=== PATIENT | female | born 1950 | race Caucasian/White ===

== ENCOUNTER 2018-06-05 17:04 | Outpatient (CLI) | payer MEDICARE ==
[2018-06-05 17:56] LABS: #Eosinphils 0.2 thou/uL (0.0-0.7); #Lymphocytes 1.5 thou/uL (1.20-3.40); #Monocytes 0.7 thou/uL (0.11-0.59); #Neutrophils 6.1 thou/uL (1.40-6.50); %Basophils 0.5 % (0.0-1.0); %Eosinophils 2.3 % (0.0-10.0); %Lymphocytes 17.5 % (21.0-51.0); %Monocytes 7.8 % (0.0-10.0); %Neutrophils 71.9 % (42.0-75.0); Hemoglobin 11.5 g/dL (12.0-16.0); Mean Corpuscular Hemoglobin 28.4 pg (27.0-31.0); Mean Corpuscular Volume 88.6 fL (78.0-98.0); Mean Platelet Volume 7.4 fL (7.4-10.4); Platelet Count 279 thou/uL (130-400); RBC Distribution Width 15.4 % (11.5-14.5); Red Blood Cell (RBC) Count 4.05 mill/uL (4.20-5.40); White Blood Cell (WBC) Count 8.4 thou/uL (4.8-10.8)
[2018-06-05 18:03] LABS: PTT 39.3 SEC (22.9-36.1); Prothrombin Time 13.4 SEC (12.0-14.7)
[2018-06-05 18:25] LABS: ALT (SGPT) 21 U/L (8-55); AST (SGOT) 20 U/L (5-34); Albumin 3.4 g/dL (3.4-4.8); Alkaline Phosphatase 396 U/L (40-150); Anion Gap 12 mmol/L (10-20); BUN (Urea Nitrogen) 27 mg/dL (9.8-20.1); Bilirubin, Total 0.6 mg/dL (0.2-1.2); Calc. Creatinine Clearance 0 mL/min (70-130); Carbon Dioxide 25 mmol/L (23-31); Cardiac Risk 3.5 (Less than 4.5); Chloride 101 mmol/L (98-107); Cholesterol 127 mg/dl (< 200 Desired); Estimated GFR-MDRD 27; Globulin 4.7 g/dL (2.4-3.5); Glucose 216 mg/dL (80-115); HDL Cholesterol 36 mg/dL (>60 Neg Risk); LDL Cholesterol, Calculated 61 mg/dL; Potassium 3.8 mmol/L (3.5-5.1); Protein, Total 8.1 g/dL (6.0-8.3); Sodium 134 mmol/L (136-145); Triglycerides 152 mg/dL (Less than 150)
== END 2018-06-05 17:05 | disposition home or self-care (01) ==
LOC: LABBT 17:04
PROVIDERS: ATTEND Emergency Medicine
DX: Z01.812 Encounter for preprocedural laboratory examination (principal); I25.5 Ischemic cardiomyopathy
CPT/HCPCS: 80053; 80061; 85025; 85610; 85730

== ENCOUNTER 2018-06-13 17:52 | Observation (INO) | payer MEDICARE ==
[2018-06-13] MEDS ORDERED: Acetaminophen 325 MG TAB PO PRN (19:12)
[2018-06-13] MEDS ORDERED: Ondansetron ODT 4 MG TAB PO PRN (19:12)
[2018-06-13] MEDS ORDERED: hydrALAZINE 20 MG/ML VIAL SLOW IVP PRN (19:32)
[2018-06-13] MEDS ORDERED: Sodium Chloride 0.9% 1,000 ML IV SCH ×3 (19:45→23:59)
[2018-06-13] MEDS ORDERED: hydrALAZINE 20 MG/ML VIAL SLOW IVP SCH (19:45)
[2018-06-13] MEDS ORDERED: Carvedilol 6.25 MG TAB PO SCH (19:45)
--- NOTE | 2018-06-13 20:26 | HP ---
HISTORY OF PRESENT ILLNESS: Ms. Webb is a pleasant 68-year-old white female, who comes to the hospital for prehydration for a planned heart catheterization tomorrow. She has a CABG x1 in 2013. She has severe PVD. Her creatinine was 1.8, so we decided to admit her the night before her procedure for IV fluids. She has had ischemic cardiomyopathy with an EF of 36% on the MPI with a large area of inferior scar with domenic-infarct ischemia, so apparently she only had one bypass to the LAD and LINARES. She denies any chest pain, tightness, or pressure at this time. PAST MEDICAL HISTORY: 1. Hypertension. 2. Type 2 diabetes. 3. Hyperlipidemia. 4. Coronary artery disease. 5. Ischemic cardiomyopathy. 6. Migraine headaches. 7. Facial palsy. PAST SURGICAL HISTORY: 1. x2. 2. Orthopedic surgeries in the past. PSYCHIATRIC HISTORY: Depression. SOCIAL HISTORY: Social alcohol use. No drug use. Currently, no tobacco, but former tobacco use. ALLERGIES: CODEINE. OUTPATIENT MEDICATIONS: Include: 1. Systane Gel eye drops. 2. Paroxetine 20 mg q.h.s. 3. Metformin 500 mg b.i.d. 4. Lipitor 40 mg q.h.s. 5. Carvedilol 6.25 b.i.d. 6. Zantac 75 b.i.d. 7. Advil p.r.n. 8. Iron supplements. 9. Tylenol. 10. Losartan 100 mg a day. REVIEW OF SYSTEMS: 12-point review of systems was done and was found to be negative other than stated in the history of present illness. PHYSICAL EXAMINATION: VITAL SIGNS: Temperature 98.5, pulse 73, respiratory rate 16, saturations 95% on room air, blood pressure 196/116. GENERAL: Awake, alert, and oriented x3. No distress. HEENT: Normocephalic and atraumatic. There is a right facial palsy. NECK: Supple. LUNGS: Clear. CARDIOVASCULAR: S1 and S2. No S3 or S4. No murmurs. ABDOMEN: Soft. Positive bowel sounds. EXTREMITIES: No edema. SKIN: Warm and dry. LABORATORY DATA: Laboratory work was reviewed. Hemoglobin of 11.5, this was just a week ago; hematocrit of 35; platelet count 279. Chemistry showed a BUN of 27, creatinine of 1.84, glucose was 260. Hemoglobin A1c is 10.2. Sodium was 134. ASSESSMENT AND PLAN: 1. Ischemic cardiomyopathy. 2. Status post coronary artery bypass graft x1. 3. Severe peripheral vascular disease. PLAN: 1. We will hydrate overnight. We will put on 50 mL an hour, starting at midnight. 2. We will plan on hopefully trying to get this done tomorrow morning. She has significant PVD and she has told me that they have tried in the past without success. We will try to access with ultrasound guidance and see if we are able to do this. 3. Bare-metal stents if needed, she needs eye surgery for her eyelids. 4. Further recommendations per results of angiogram tomorrow. She is aware that if it is her bypass graft, if it is a vein, if it is a drug-eluting stent. Job ID: [id number]
[2018-06-13] MEDS ORDERED: Atorvastatin Calcium 40 MG TAB PO SCH (21:00)
[2018-06-13] MEDS ORDERED: Famotidine 20 MG TAB PO SCH (21:00)
[2018-06-13] MEDS ORDERED: Communication Order-Pharmacy FS SCH (21:30)
[2018-06-13 23:08] VITALS: BMI 31.4
[2018-06-14 07:56] LABS: Anion Gap 13 mmol/L (10-20); BUN (Urea Nitrogen) 30 mg/dL (9.8-20.1); Calc. Creatinine Clearance 42 mL/min (70-130); Calcium 8.7 mg/dL (7.8-10.44); Carbon Dioxide 22 mmol/L (23-31); Chloride 104 mmol/L (98-107); Estimated GFR-MDRD 27; Glucose 278 mg/dL (80-115); Potassium 3.6 mmol/L (3.5-5.1); Sodium 135 mmol/L (136-145)
[2018-06-14] MEDS ORDERED: Carvedilol 6.25 MG TAB PO SCH (08:00)
[2018-06-14] MEDS ORDERED: PARoxetine 20 MG TAB PO SCH (09:00)
[2018-06-14] MEDS ORDERED: Losartan 25 MG TAB PO SCH (09:00)
[2018-06-14] MEDS ORDERED: Midazolam HCl 2 mg/2 ml Vial ONE (09:50)
[2018-06-14] MEDS ORDERED: Fentanyl 100 MCG/2 ML VIAL ONE (09:50)
[2018-06-14] MEDS ORDERED: hydrALAZINE 20 MG/ML VIAL ONE ×2 (09:58→10:26)
[2018-06-14] MEDS ORDERED: traMADol HCl 50 MG TAB PO PRN (10:16)
[2018-06-14] MEDS ORDERED: Acetaminophen/Codeine 30-300mg Tablet PO PRN (10:16)
[2018-06-14] MEDS ORDERED: Aspirin Chewable 81 MG TAB ONE (10:26)
[2018-06-14] MEDS ORDERED: Sodium Chloride 0.9% 1,000 ML IV SCH (10:30)
[2018-06-14] MEDS ORDERED: Sodium Chloride 0.9% 200 ML IV SCH (10:30)
--- NOTE | 2018-06-14 10:58 | DIS ---
DATE OF ADMISSION: 06/13/2018 DATE OF DISCHARGE: 06/14/2018 DISCHARGING PHYSICIAN: Len Hernández MD. HOSPITAL COURSE: Ms. Webb was admitted overnight for hydration for preparation of a heart catheterization this morning. She underwent that procedure. Only 60 mL of contrast were used. We were able to get images of her [place] coronary arteries as well as the three bypass grafts that were done. She has an occluded LAD, but a patent LINARES to the LAD. She has severely diseased left circumflex, just diffusely diseased, nowhere to do intervention or bypass, and she has a severely diseased large OM that has a patent vein graft to that OM. RCA is severely diseased ostially and then mid vessel, it is 100% occluded. There is a vein graft to the RCA that is occluded. There is only a very small stub seen on angiography. RCA distally fills from LAD collaterals. Ms. Webb will stay after the catheterization procedure for 5 more hours for just very mild hydration and she should be able to go home later today. DISCHARGE MEDICATIONS: Unchanged except for the addition of a baby aspirin 81 mg daily. FOLLOWUP: She will follow up with myself in 1 month. TIME SPENT: Over 30 minutes was spent at bedside for discharge. Job ID: [id number]
[2018-06-14 15:27] VITALS: BP 144/72; TEMP 99
[2018-06-14] MEDS ORDERED: Prevnar 13-Val Conj/PF 0.5 ML SYRINGE IM ONE (21:00)
[2018-06-15] MEDS ORDERED: Aspirin Chewable 81 MG TAB PO SCH (09:00)
== END 2018-06-14 15:27 | disposition home or self-care (01) ==
LOC: T4-A 17:52
PROVIDERS: ADMIT Internal Medicine Cardiovascular Disease; ATTEND Internal Medicine Cardiovascular Disease
DX: I25.5 Ischemic cardiomyopathy (principal); I73.9 Peripheral vascular disease, unspecified; I25.10 Atherosclerotic heart disease of native coronary artery without angina pectoris; E78.5 Hyperlipidemia, unspecified; I10 Essential (primary) hypertension; E11.9 Type 2 diabetes mellitus without complications; G43.909 Migraine, unspecified, not intractable, without status migrainosus; Z87.891 Personal history of nicotine dependence; Z79.82 Long term (current) use of aspirin; Z79.84 Long term (current) use of oral hypoglycemic drugs; Z79.899 Other long term (current) drug therapy; Z95.1 Presence of aortocoronary bypass graft
CPT/HCPCS: 80048; 96374; C1769; G0378; G0379; 36415; J0360; J1644; J2250; J3010

== ENCOUNTER 2018-10-25 16:46 | Inpatient (IN) | payer MEDICARE ==
--- NOTE | 2018-10-25 17:12 | RAD ---
EXAM: Chest 2 views: HISTORY: Edema and dyspnea COMPARISON: None. FINDINGS: There is a normal-sized cardiomediastinal silhouette. The patient is status post sternotomy. There i s no evidence of consolidation, mass, or pleural effusion. Degenerative changes are seen in the spine. IMPRESSION: No evidence of acute cardiopulmonary disease
[2018-10-25 17:21] LABS: #Basophils 0.1 thou/uL (0.0-0.2); #Eosinphils 0.2 thou/uL (0.0-0.7); #Lymphocytes 1.5 thou/uL (1.20-3.40); #Monocytes 0.8 thou/uL (0.11-0.59); #Neutrophils 5.4 thou/uL (1.40-6.50); %Basophils 0.7 % (0.0-1.0); %Eosinophils 2.4 % (0.0-10.0); %Lymphocytes 18.5 % (21.0-51.0); %Monocytes 9.9 % (0.0-10.0); %Neutrophils 68.5 % (42.0-75.0); Hemoglobin 11.6 g/dL (12.0-16.0); Mean Corpuscular HGB CONC 31.8 g/dL (32.0-36.0); Mean Corpuscular Hemoglobin 29.8 pg (27.0-31.0); Mean Corpuscular Volume 93.8 fL (78.0-98.0); Mean Platelet Volume 7.3 fL (7.4-10.4); Platelet Count 276 thou/uL (130-400); RBC Distribution Width 14.6 % (11.5-14.5); Red Blood Cell (RBC) Count 3.88 mill/uL (4.20-5.40); White Blood Cell (WBC) Count 7.9 thou/uL (4.8-10.8)
[2018-10-25 17:43] LABS: ALT (SGPT) 11 U/L (8-55); AST (SGOT) 21 U/L (5-34); Albumin 3.5 g/dL (3.4-4.8); Alkaline Phosphatase 365 U/L (40-150); Anion Gap 11 mmol/L (10-20); BUN (Urea Nitrogen) 29 mg/dL (9.8-20.1); Bilirubin, Total 0.8 mg/dL (0.2-1.2); Calc. Creatinine Clearance 0 mL/min (70-130); Calcium 9.2 mg/dL (7.8-10.44); Carbon Dioxide 27 mmol/L (23-31); Chloride 105 mmol/L (98-107); Estimated GFR-MDRD 27; Globulin 4.2 g/dL (2.4-3.5); Glucose 115 mg/dL (80-115); Potassium 4.1 mmol/L (3.5-5.1); Protein, Total 7.7 g/dL (6.0-8.3); Sodium 139 mmol/L (136-145)
[2018-10-25] MEDS ORDERED: Furosemide 40 MG/4 ML VIAL ONE (19:16)
[2018-10-25] MEDS ORDERED: metroNIDAZOLE 500 MG/100 ML BAG ONE (19:46)
[2018-10-25] MEDS ORDERED: Amoxicillin/Potassium Clav 875 MG TAB ONE (20:02)
[2018-10-25 20:19] LABS: Troponin I 0.034 ng/mL (< 0.028)
[2018-10-25 20:48] LABS: Bilirubin Negative (Negative); Blood, Urine Trace (Negative); Clarity CLOUDY (Clear); Glucose, Urine (Dipstick) Negative (Negative); Leukocyte Trace (Negative); Nitrite Negative (Negative); Protein, Urine (Dipstick) 100 mg/dL (Neg-Trace); Specific Gravity, Urine 1.009 (1.002-1.036); Urobilinogen 0.2 mg/dL (0.2-1.0)
[2018-10-25 20:50] LABS: Bacteria/HPF 4+ HPF (None Seen); Hyaline Casts/LPF 0-3 HYALINE CAST LPF (0-3 Hyaline); Squamous Epithelial 0-3 HPF (0-3)
[2018-10-25] MEDS ORDERED: Ondansetron ODT 4 MG TAB SL PRN (21:32)
[2018-10-25] MEDS ORDERED: Acetaminophen 325 MG TAB PO PRN (21:32)
[2018-10-25] MEDS ORDERED: Ondansetron PF 4 MG/2 ML Vial IVP PRN (21:32)
[2018-10-25 21:46] VITALS: BMI 32.8
[2018-10-25 22:27] LABS: Troponin I 0.028 ng/mL (< 0.028)
[2018-10-25] MEDS ORDERED: hydrALAZINE 20 MG/ML VIAL SLOW IVP PRN (22:30)
[2018-10-25] MEDS ORDERED: Labetalol HCl 100 MG/20 ML VIAL SLOW IVP PRN (22:32)
[2018-10-25] MEDS: cloNIDine 0.1 MG TAB PO PRN (22:37)
[2018-10-25] MEDS ORDERED: Carvedilol 6.25 MG TAB PO SCH (22:45)
[2018-10-26] MEDS ORDERED: Ondansetron ODT 4 MG TAB PO PRN (04:47)
[2018-10-26] MEDS ORDERED: Acetaminophen 325 MG TAB PO PRN (04:47)
[2018-10-26] MEDS ORDERED: Calcium Carbonate 500 MG ChewTAB PO PRN (04:47)
[2018-10-26] MEDS ORDERED: Senokot S 8.6-50 MG TAB PO PRN (04:47)
[2018-10-26] MEDS ORDERED: Ondansetron PF 4 MG/2 ML Vial IVP PRN (04:47)
[2018-10-26] MEDS: cefTRIAXone\\ROCEPHIN 1 GM in Sodium Chloride 0.9% 100 ML IVPB SCH (05:15)
--- NOTE | 2018-10-26 05:21 | HP ---
The patient was seen and examined on October 25, 2018. CHIEF COMPLAINT: Shortness of breath. HISTORY OF PRESENT ILLNESS: The patient is a 68-year-old female with coronary artery disease, status post CABG; hypertension; diabetes mellitus type 2; and hyperlipidemia; presented to the emergency room with shortness of breath. Over the last 1 to 2 weeks, the patient developed gradual worsening in shortness of breath along with significant bilateral lower extremity swelling. She also had cough, which was essentially nonproductive. She also had shortness of breath on lying down flat. She denies any fever or chills. She cannot recall recent echo. She had a stress test more than 6 months ago that showed ejection fraction of 36% with large area of inferior scar with domenic-infarct ischemia. She underwent cardiac catheterization in May of this year and medical therapy was recommended. No nausea, vomiting, diaphoresis, syncope, or palpitations reported. The patient also complains of increased abdominal distention without any abdominal pain. PAST MEDICAL HISTORY: 1. Hypertension. 2. Diabetes mellitus type 2. 3. Coronary artery disease, status post coronary artery bypass grafting. 4. Hyperlipidemia. 5. Ischemic cardiomyopathy with ejection fraction 36% on stress test. 6. History of migraine headaches. 7. Multiple dental issues. 8. Depression. PAST SURGICAL HISTORY: 1. x2. 2. Left carotid endarterectomy. 3. Hysterectomy. 4. Left elbow surgery. 5. Partial amputation of the right foot. ALLERGIES: NO KNOWN DRUG ALLERGIES. CURRENT HOME MEDICATIONS: The patient is unable to recall any of her home medications. She is a poor historian. Her sister helps her with all the medications. SOCIAL HISTORY: The patient currently lives at home with her family. No smoking, alcohol, or drug use reported. She is a former smoker. FAMILY HISTORY: Negative for congestive heart failure. REVIEW OF SYSTEMS: All other review of systems was reviewed and was found negative. PHYSICAL EXAMINATION: VITAL SIGNS: Temperature 98.3, respirations 18, pulse rate of 64, blood pressure of 186/78 with O2 saturation 95% on room air. GENERAL: A 68-year-old female, in mild respiratory distress, able to complete short phrases. HEENT: Head, atraumatic and normocephalic. Sclerae are anicteric. Moist mucous membranes. No oral lesion. NECK: Supple. JVD not appreciated due to body habitus. No carotid bruit. LUNGS: Showed bibasilar rales with rhonchi. No wheezing. No significant accessory muscle use. HEART: S1 and S2 present. Regular rate and rhythm. Healed midline scar from previous CABG. 2/6 systolic murmur over the mitral area. ABDOMEN: Soft, obese. Bowel sounds are present. EXTREMITIES: 2 to 3+ edema in bilateral lower extremities. SKIN: Warm and dry. LYMPH NODES: No palpable lymph nodes in the neck. PERIPHERAL VASCULAR: Radial pulses palpable bilaterally. MUSCULOSKELETAL: No joint swelling or tenderness. LABORATORY FINDINGS: EKG by my review showed sinus rhythm with premature ventricular complexes with first-degree AV block and nonspecific ST-T wave changes. Troponin 0.034. BNP 1708. Creatinine 1.87. Baseline creatinine is around this range. WBC 7.9 with hemoglobin 11.9. Chest x-ray by my review showed pulmonary vascular congestion. IMPRESSION: 1. Acute on chronic systolic heart failure exacerbation. 2. Chronic kidney disease stage 4. 3. Elevated troponin/type 2 myocardial infarction secondary to congestive heart failure. 4. Chronic normocytic normochromic anemia. 5. Obesity with a BMI of 32.9. 6. Urinary tract infection. 7. Diabetes mellitus type 2. 8. Depression, mild, stable. 9. Coronary artery disease, status post coronary artery bypass graft with repeat catheterization earlier this year. 10. Hyperlipidemia. 11. Hypertension with hypertensive urgency. PLAN: The patient will be monitored on the telemetry unit as observation. We will start her on Lasix drip due to CKD stage 4. Ejection fraction earlier this year was 36% per Dr. Hernández's note. We will resume low-dose aspirin. Insulin sliding scale. We will confirm home medications. Recheck labs on a daily basis. Fluid restriction. We will also resume carvedilol. No TALAT inhibitor, ARB, or Aldactone due to renal dysfunction. We will start her on empiric antibiotics for UTI. Plan of care was discussed with the patient in detail, she stated understanding. Job ID: [id number]
[2018-10-26] MEDS: Furosemide 100 MG in Sodium Chloride 0.9% 100 ML IVPB SCH (05:54)
[2018-10-26] MEDS: Aspirin 81 mg Enteric Coated Tablet PO SCH (08:47)
[2018-10-26] MEDS: Carvedilol 6.25 MG TAB PO SCH ×2 (08:47→17:33)
[2018-10-26] MEDS: Heparin 5,000 UNITS/ML VIAL SC SCH ×2 (08:48→21:30)
[2018-10-26] MEDS: Chlorhexidine Gluconate 15 ML UDCUP SSP SCH ×2 (11:19→21:30)
--- NOTE | 2018-10-26 15:07 | PDOC.PN ---
- Subjective Encounter Start Date: 10/26/18 Encounter Start Time: 15:05 Patient lying in bed, she reports feeling better today. She reports shortness of breath improved, she is continuing on lasix. She denies chest pain or palpitations. - Objective Resuscitation Status - Order Detail: 10/26/18 04:47 Resuscitation Status Routine Resuscitation Status: FULL: Full Resuscitation MAR Reviewed: Yes Vital Signs & Weight: Vital Signs (12 hours) Temp Pulse Pulse Pulse Resp BP BP 10/26/18 12:00 98.6 F 60 18 182/79 H 10/26/18 10:10 64 66 164/72 H 10/26/18 10:00 98.4 F 60 18 183/83 H 10/26/18 08:47 183/83 H 10/26/18 08:00 98.4 F 60 18 183/83 H 10/26/18 03:12 97.8 F 64 12 BP BP Pulse Ox Pulse Ox 10/26/18 12:00 94 L 10/26/18 10:10 162/72 H 90 L 10/26/18 10:00 96 10/26/18 08:47 10/26/18 08:00 183/83 H 96 10/26/18 03:12 161/68 H 94 L Weight Admit Weight 216 lb Weight 216 lb 6.4 oz I&O: 10/25/18 10/26/18 10/27/18 06:59 06:59 06:59 Intake Total 460 465 Output Total 700 Balance -240 465 Result Diagrams: 10/25/18 17:14 10/25/18 17:14 Additional Labs: Accuchecks 10/26/18 10/26/18 10:44 05:35 POC Glucose 208 H 143 H Radiology Reviewed by me: Yes Phys Exam - Physical Examination Constitutional: NAD HEENT: moist MMs Neck: supple Coarse breath sounds Cardiovascular: RRR 2/6 systolic murmur Gastrointestinal: soft, positive bowel sounds Musculoskeletal: pulses present 1+ edema Neurological: normal sensation, moves all 4 limbs Lymphatic: no nodes Psychiatric: normal affect, A&O x 3 Skin: cap refill <2 seconds Dx/Plan (1) Acute on chronic systolic (congestive) heart failure Code(s): I50.23 - ACUTE ON CHRONIC SYSTOLIC (CONGESTIVE) HEART FAILURE Status : Acute (2) CKD (chronic kidney disease) stage 4, GFR 15-29 ml/min Code(s): N18.4 - CHRONIC KIDNEY DISEASE, STAGE 4 (SEVERE) Status: Acute (3) UTI (urinary tract infection) Status: Acute (4) Myocardial infarction type 2 Code(s): I21.A1 - MYOCARDIAL INFARCTION TYPE 2 Status: Acute (5) CAD (coronary artery disease) Code(s): I25.10 - ATHSCL HEART DISEASE OF [place] CORONARY ARTERY W/O ANG PCTRS Status: Acute (6) HTN (hypertension) Code(s): I10 - ESSENTIAL (PRIMARY) HYPERTENSION Status: Acute (7) HLD (hyperlipidemia) Code(s): E78.5 - HYPERLIPIDEMIA, UNSPECIFIED Status: Acute - Plan cont current plan of care, plan discussed w/ family, continue antibiotics, DVT proph w/heparin * Continue on lasix for continued diuresis * Continue other home medications * IV ceftriaxone for UTI, await urine culture * Monitor BP and other vitals, continue antihypertensives * Recheck CBC and CMP in am * Disposition pending patient progress, but likely home in the next 24-48 hours
[2018-10-26] MEDS: cloNIDine 0.1 MG TAB PO PRN (21:29)
[2018-10-27 04:50] LABS: Anion Gap 12 mmol/L (10-20); BUN (Urea Nitrogen) 26 mg/dL (9.8-20.1); Calc. Creatinine Clearance 44 mL/min (70-130); Calcium 9.1 mg/dL (7.8-10.44); Carbon Dioxide 27 mmol/L (23-31); Chloride 102 mmol/L (98-107); Estimated GFR-MDRD 27; Glucose 158 mg/dL (80-115); Magnesium 1.8 mg/dL (1.6-2.6); Potassium 3.5 mmol/L (3.5-5.1); Sodium 137 mmol/L (136-145)
[2018-10-27] MEDS: Furosemide 100 MG in Sodium Chloride 0.9% 100 ML IVPB SCH (05:18)
[2018-10-27] MEDS: cefTRIAXone\\ROCEPHIN 1 GM in Sodium Chloride 0.9% 100 ML IVPB SCH (05:18)
[2018-10-27] MEDS: Carvedilol 6.25 MG TAB PO SCH ×2 (08:13→21:20)
[2018-10-27] MEDS: Chlorhexidine Gluconate 15 ML UDCUP SSP SCH ×2 (08:14→21:20)
[2018-10-27] MEDS: cloNIDine 0.1 MG TAB PO PRN ×2 (08:14→16:12)
[2018-10-27] MEDS: Aspirin 81 mg Enteric Coated Tablet PO SCH (08:14)
[2018-10-27] MEDS: Heparin 5,000 UNITS/ML VIAL SC SCH ×2 (08:14→21:21)
--- NOTE | 2018-10-27 10:48 | PDOC.PN ---
- Subjective Encounter Start Date: 10/27/18 Encounter Start Time: 08:30 -: old records requested/rev Patient seen and examined. pt has low back pain, No overnight events - Objective Resuscitation Status - Order Detail: 10/26/18 04:47 Resuscitation Status Routine Resuscitation Status: FULL: Full Resuscitation MAR Reviewed: Yes Vital Signs & Weight: Vital Signs (12 hours) Temp Pulse Resp BP BP BP BP 10/27/18 08:14 196/82 H 10/27/18 08:13 196/82 H 10/27/18 08:00 98.5 F 75 18 196/82 H 10/27/18 03:47 98.7 F 71 18 176/77 H 10/27/18 00:20 67 148/67 H Pulse Ox 10/27/18 08:14 10/27/18 08:13 10/27/18 08:00 91 L 10/27/18 03:47 92 L 10/27/18 00:20 Weight Admit Weight 216 lb Weight 209 lb 11.2 oz I&O: 10/26/18 10/27/18 10/28/18 06:59 06:59 06:59 Intake Total 460 1101.6 240 Output Total 700 2425 Balance -240 -1323.4 240 Result Diagrams: 10/25/18 17:14 10/27/18 03:59 Additional Labs: Accuchecks 10/27/18 10/26/18 10/26/18 06:10 21:08 16:56 POC Glucose 151 H 147 H 154 H 10/26/18 10:44 POC Glucose 208 H Radiology Reviewed by me: Yes EKG Reviewed by me: Yes (nsr) Phys Exam - Physical Examination Constitutional: NAD HEENT: PERRLA, moist MMs, sclera anicteric fascial palsy+ Neck: no JVD, supple Respiratory: no wheezing, no rhonchi fe basal rales Cardiovascular: RRR, no significant murmur, no rub Gastrointestinal: soft, non-tender, no distention, positive bowel sounds Musculoskeletal: pulses present, edema present Neurological: non-focal, normal sensation Lymphatic: no nodes Psychiatric: normal affect, A&O x 3 Skin: no rash, normal turgor Dx/Plan (1) Acute on chronic systolic (congestive) heart failure Code(s): I50.23 - ACUTE ON CHRONIC SYSTOLIC (CONGESTIVE) HEART FAILURE Status : Acute (2) UTI (urinary tract infection) Status: Acute (3) CAD (coronary artery disease) Code(s): I25.10 - ATHSCL HEART DISEASE OF [place] CORONARY ARTERY W/O ANG PCTRS Status: Chronic (4) CKD (chronic kidney disease) stage 4, GFR 15-29 ml/min Code(s): N18.4 - CHRONIC KIDNEY DISEASE, STAGE 4 (SEVERE) Status: Chronic (5) HLD (hyperlipidemia) Code(s): E78.5 - HYPERLIPIDEMIA, UNSPECIFIED Status: Chronic (6) HTN (hypertension) Code(s): I10 - ESSENTIAL (PRIMARY) HYPERTENSION Status: Chronic (7) Myocardial infarction type 2 Code(s): I21.A1 - MYOCARDIAL INFARCTION TYPE 2 Status: Chronic (8) Anxiety and depression Code(s): F41.9 - ANXIETY DISORDER, UNSPECIFIED; F32.9 - MAJOR DEPRESSIVE DISORDER, SINGLE EPISODE, UNSPECIFIED Status: Chronic - Plan cont current plan of care, plan discussed w/ family, continue antibiotics * continue lasix * add norco for pain * medication reviewed as below * symptomatic treatment * discussed with family * repeat labs tomorrow. * continue rocephin Review of Systems - Review of Systems ENT: negative: Ear Pain, Ear Discharge, Nose Pain, Nose Discharge, Nose Congestion, Mouth Pain, Mouth Swelling, Throat Pain, Throat Swelling, Other Respiratory: negative: Cough, Dry, Shortness of Breath, Hemoptysis, SOB with Excertion, Pleuritic Pain, Sputum, Wheezing Cardiovascular: negative: chest pain, palpitations, orthopnea, paroxysmal nocturnal dyspnea, edema, light headedness, other Gastrointestinal: negative: Nausea, Vomiting, Abdominal Pain, Diarrhea, Constipation, Melena, Hematochezia, Other Genitourinary: negative: Dysuria, Frequency, Incontinence, Hematuria, Retention , Other Musculoskeletal: Back Pain. negative: Neck Pain, Shoulder Pain, Arm Pain, Hand Pain, Leg Pain, Foot Pain, Other - Medications/Allergies Allergies/Adverse Reactions: Allergies Allergy/AdvReac Type Severity Reaction Status Date / Time No Known Allergies Allergy Verified 10/25/18 21:56 Medications: Current Medications Acetaminophen (Tylenol) 650 mg PO Q4H PRN PRN Reason: Headache/Fever/Mild Pain (1-3) Hydrocodone Bitart/Acetaminophen ([place] 5/325) 1 tab PO Q4H PRN PRN Reason: Pain Aspirin (Ecotrin) 81 mg PO DAILY [facility] Last Admin: 10/27/18 08:14 Dose: 81 mg Atorvastatin Calcium (Lipitor) 40 mg PO DAILY [facility] Calcium Carbonate (Tums) 1,000 mg PO Q4H PRN PRN Reason: Heartburn or Indigestion Carvedilol (Coreg) 12.5 mg PO BID [facility] Chlorhexidine Gluconate (Chlorhexidine Gluconate) 15 ml SSP BID [facility] Last Admin: 10/27/18 08:14 Dose: 15 ml Clonidine (Catapres) 0.1 mg PO Q4H PRN PRN Reason: SBP Greater Than 180 Last Admin: 10/27/18 08:14 Dose: 0.1 mg Gabapentin (Neurontin) 300 mg PO BID [facility] Glipizide (Glucotrol Xl) 5 mg PO DAILY [facility] Heparin Sodium (Porcine) (Heparin) 5,000 units SC BID [facility] Last Admin: 10/27/18 08:14 Dose: 5,000 units Hydralazine HCl (Apresoline) 10 mg SLOW IVP Q4H PRN PRN Reason: SBP Greater Than 180 Last Admin: 10/26/18 01:24 Dose: 10 mg Ceftriaxone Sodium 1 gm/ (Sodium Chloride) 100 mls @ 200 mls/hr IVPB Q24HR [facility] Last Admin: 10/27/18 05:18 Dose: 100 mls Furosemide 100 mg/ Sodium (Chloride) 110 mls @ 4.4 mls/hr IVPB INF [facility] Last Admin: 10/27/18 05:18 Dose: 110 mls Labetalol HCl (Normodyne) 10 mg SLOW IVP Q4H PRN PRN Reason: SBP Greater Than 180 Ondansetron HCl (Zofran Odt) 4 mg PO Q6H PRN PRN Reason: Nausea/Vomiting Ondansetron HCl (Zofran) 4 mg IVP Q6H PRN PRN Reason: Nausea/Vomiting Paroxetine HCl (Paxil) 30 mg PO DAILY [facility] Senna/Docusate Sodium (Senokot S) 2 tab PO BID PRN PRN Reason: Constipation Sodium Chloride (Flush - Normal Saline) 10 ml IVF Q12HR [facility] Last Admin: 10/27/18 08:15 Dose: 10 ml Sodium Chloride (Flush - Normal Saline) 10 ml IVF PRN PRN PRN Reason: Saline Flush
[2018-10-27] MEDS: HYDROcodone/Acetaminophen 5/325 mg Tablet PO PRN ×2 (12:06→21:24)
[2018-10-27] MEDS: Gabapentin 300 MG CAP PO SCH (21:20)
[2018-10-28] MEDS: cefTRIAXone\\ROCEPHIN 1 GM in Sodium Chloride 0.9% 100 ML IVPB SCH (05:47)
[2018-10-28] MEDS: Furosemide 100 MG in Sodium Chloride 0.9% 100 ML IVPB SCH (05:47)
[2018-10-28 06:41] LABS: Anion Gap 12 mmol/L (10-20); BUN (Urea Nitrogen) 25 mg/dL (9.8-20.1); Calc. Creatinine Clearance 49 mL/min (70-130); Calcium 8.7 mg/dL (7.8-10.44); Carbon Dioxide 28 mmol/L (23-31); Chloride 100 mmol/L (98-107); Estimated GFR-MDRD 31; Glucose 152 mg/dL (80-115); Potassium 3.4 mmol/L (3.5-5.1); Sodium 137 mmol/L (136-145)
[2018-10-28] MEDS ORDERED: Potassium Chloride 20 MEQ TAB PO SCH (07:30)
[2018-10-28] MEDS: PARoxetine 20 MG TAB PO SCH (07:42)
[2018-10-28] MEDS: Carvedilol 6.25 MG TAB PO SCH ×2 (07:42→21:40)
[2018-10-28] MEDS: Gabapentin 300 MG CAP PO SCH ×2 (07:43→21:40)
[2018-10-28] MEDS: Aspirin 81 mg Enteric Coated Tablet PO SCH (07:43)
[2018-10-28] MEDS: Heparin 5,000 UNITS/ML VIAL SC SCH ×2 (07:43→21:41)
[2018-10-28] MEDS: cloNIDine 0.1 MG TAB PO PRN ×2 (07:43→12:56)
[2018-10-28] MEDS: Atorvastatin Calcium 40 MG TAB PO SCH (07:43)
[2018-10-28] MEDS: Chlorhexidine Gluconate 15 ML UDCUP SSP SCH ×2 (07:47→21:40)
[2018-10-28] MEDS: HYDROcodone/Acetaminophen 5/325 mg Tablet PO PRN ×2 (10:37→21:41)
--- NOTE | 2018-10-28 10:59 | PDOC.PN ---
- Subjective Encounter Start Date: 10/28/18 Encounter Start Time: 08:45 Patient seen and examined. No new complaints. No overnight events - Objective Resuscitation Status - Order Detail: 10/26/18 04:47 Resuscitation Status Routine Resuscitation Status: FULL: Full Resuscitation MAR Reviewed: Yes Vital Signs & Weight: Vital Signs (12 hours) Temp Pulse Pulse Pulse Resp BP BP 10/28/18 09:50 62 58 L 110/51 L 10/28/18 08:00 98.4 F 60 18 10/28/18 07:43 222/95 H 10/28/18 07:42 222/95 H 10/28/18 04:00 96.7 F L 61 14 10/27/18 23:56 97.8 F 61 14 BP BP Pulse Ox 10/28/18 09:50 168/75 H 10/28/18 08:00 222/95 H 95 10/28/18 07:43 10/28/18 07:42 10/28/18 04:00 190/77 H 94 L 10/27/18 23:56 169/72 H 89 L Weight Admit Weight 216 lb Weight 208 lb 8 oz I&O: 10/27/18 10/28/18 10/29/18 06:59 06:59 06:59 Intake Total 1101.6 1033 240 Output Total 2425 2950 Balance -1323.4 -1917 240 Result Diagrams: 10/25/18 17:14 10/28/18 05:43 Additional Labs: Accuchecks 10/28/18 10/28/18 10/27/18 10:41 06:15 22:29 POC Glucose 253 H 138 H 184 H 10/27/18 10/27/18 17:13 11:11 POC Glucose 199 H 247 H EKG Reviewed by me: Yes Phys Exam - Physical Examination Constitutional: NAD HEENT: PERRLA, moist MMs, sclera anicteric Neck: no JVD, supple Respiratory: no wheezing, no rales, no rhonchi Cardiovascular: RRR, no significant murmur, no rub Gastrointestinal: soft, non-tender, no distention, positive bowel sounds Musculoskeletal: no edema, pulses present Neurological: non-focal, normal sensation Lymphatic: no nodes Psychiatric: normal affect, A&O x 3 Skin: no rash, normal turgor Dx/Plan (1) Acute on chronic systolic (congestive) heart failure Code(s): I50.23 - ACUTE ON CHRONIC SYSTOLIC (CONGESTIVE) HEART FAILURE Status : Acute (2) UTI (urinary tract infection) Status: Acute (3) CAD (coronary artery disease) Code(s): I25.10 - ATHSCL HEART DISEASE OF [place] CORONARY ARTERY W/O ANG PCTRS Status: Chronic (4) CKD (chronic kidney disease) stage 4, GFR 15-29 ml/min Code(s): N18.4 - CHRONIC KIDNEY DISEASE, STAGE 4 (SEVERE) Status: Chronic (5) HLD (hyperlipidemia) Code(s): E78.5 - HYPERLIPIDEMIA, UNSPECIFIED Status: Chronic (6) HTN (hypertension) Code(s): I10 - ESSENTIAL (PRIMARY) HYPERTENSION Status: Chronic (7) Myocardial infarction type 2 Code(s): I21.A1 - MYOCARDIAL INFARCTION TYPE 2 Status: Chronic (8) Anxiety and depression Code(s): F41.9 - ANXIETY DISORDER, UNSPECIFIED; F32.9 - MAJOR DEPRESSIVE DISORDER, SINGLE EPISODE, UNSPECIFIED Status: Chronic - Plan cont current plan of care, plan discussed w/ family, continue antibiotics, PT/OT , social media coordinator * continue rocephin for UTI * tomorrow will change to PO lasix * repeat labs tomorrow * replace potassium * pillowcase maker for SNU evaluation * medication reviewed as below * symptomatic treatment. Review of Systems - Review of Systems ENT: negative: Ear Pain, Ear Discharge, Nose Pain, Nose Discharge, Nose Congestion, Mouth Pain, Mouth Swelling, Throat Pain, Throat Swelling, Other Respiratory: negative: Cough, Dry, Shortness of Breath, Hemoptysis, SOB with Excertion, Pleuritic Pain, Sputum, Wheezing Cardiovascular: negative: chest pain, palpitations, orthopnea, paroxysmal nocturnal dyspnea, edema, light headedness, other Gastrointestinal: negative: Nausea, Vomiting, Abdominal Pain, Diarrhea, Constipation, Melena, Hematochezia, Other Genitourinary: negative: Dysuria, Frequency, Incontinence, Hematuria, Retention , Other Musculoskeletal: negative: Neck Pain, Shoulder Pain, Arm Pain, Back Pain, Hand Pain, Leg Pain, Foot Pain, Other - Medications/Allergies Allergies/Adverse Reactions: Allergies Allergy/AdvReac Type Severity Reaction Status Date / Time No Known Allergies Allergy Verified 10/25/18 21:56 Medications: Current Medications Acetaminophen (Tylenol) 650 mg PO Q4H PRN PRN Reason: Headache/Fever/Mild Pain (1-3) Hydrocodone Bitart/Acetaminophen ([place] 5/325) 1 tab PO Q4H PRN PRN Reason: Pain Last Admin: 10/28/18 10:37 Dose: 1 tab Aspirin (Ecotrin) 81 mg PO DAILY [facility] Last Admin: 10/28/18 07:43 Dose: 81 mg Atorvastatin Calcium (Lipitor) 40 mg PO DAILY [facility] Last Admin: 10/28/18 07:43 Dose: 40 mg Calcium Carbonate (Tums) 1,000 mg PO Q4H PRN PRN Reason: Heartburn or Indigestion Carvedilol (Coreg) 12.5 mg PO BID [facility] Last Admin: 10/28/18 07:42 Dose: 12.5 mg Chlorhexidine Gluconate (Chlorhexidine Gluconate) 15 ml SSP BID [facility] Last Admin: 10/28/18 07:47 Dose: 15 ml Clonidine (Catapres) 0.1 mg PO Q4H PRN PRN Reason: SBP Greater Than 180 Last Admin: 10/28/18 07:43 Dose: 0.1 mg Gabapentin (Neurontin) 300 mg PO BID [facility] Last Admin: 10/28/18 07:43 Dose: 300 mg Glipizide (Glucotrol Xl) 5 mg PO DAILY [facility] Last Admin: 10/28/18 07:43 Dose: 5 mg Heparin Sodium (Porcine) (Heparin) 5,000 units SC BID [facility] Last Admin: 10/28/18 07:43 Dose: 5,000 units Hydralazine HCl (Apresoline) 10 mg SLOW IVP Q4H PRN PRN Reason: SBP Greater Than 180 Last Admin: 10/26/18 01:24 Dose: 10 mg Ceftriaxone Sodium 1 gm/ (Sodium Chloride) 100 mls @ 200 mls/hr IVPB Q24HR [facility] Last Admin: 10/28/18 05:47 Dose: 100 mls Furosemide 100 mg/ Sodium (Chloride) 110 mls @ 4.4 mls/hr IVPB INF [facility] Last Admin: 10/28/18 05:47 Dose: 110 mls Labetalol HCl (Normodyne) 10 mg SLOW IVP Q4H PRN PRN Reason: SBP Greater Than 180 Ondansetron HCl (Zofran Odt) 4 mg PO Q6H PRN PRN Reason: Nausea/Vomiting Ondansetron HCl (Zofran) 4 mg IVP Q6H PRN PRN Reason: Nausea/Vomiting Paroxetine HCl (Paxil) 30 mg PO DAILY [facility] Last Admin: 10/28/18 07:42 Dose: 30 mg Senna/Docusate Sodium (Senokot S) 2 tab PO BID PRN PRN Reason: Constipation Sodium Chloride (Flush - Normal Saline) 10 ml IVF Q12HR [facility] Last Admin: 10/28/18 07:47 Dose: 10 ml Sodium Chloride (Flush - Normal Saline) 10 ml IVF PRN PRN PRN Reason: Saline Flush
[2018-10-28] MEDS ORDERED: Senokot S 8.6-50 MG TAB PO PRN (11:47)
[2018-10-28] MEDS ORDERED: Artificial Tears 18 DROP/0.9 ML EA EYE PRN (11:47)
[2018-10-28] MEDS ORDERED: Cepastat Lozenges 1 LOZ PO PRN (11:47)
[2018-10-28] MEDS ORDERED: Loperamide HCl 2 MG CAP PO PRN (11:47)
[2018-10-28] MEDS ORDERED: Sodium Chloride 0.65% Nasal 44 ML BOT EA NARE PRN (11:47)
[2018-10-28] MEDS ORDERED: Diabetic Tussin 200 MG/10 ML UDCUP PO PRN (11:47)
[2018-10-28] MEDS ORDERED: Bisacodyl 10 MG SUPP PR PRN (11:47)
[2018-10-28] MEDS ORDERED: Loratadine 10 MG TAB PO PRN (11:47)
[2018-10-29] MEDS: cefTRIAXone\\ROCEPHIN 1 GM in Sodium Chloride 0.9% 100 ML IVPB SCH (05:51)
[2018-10-29] MEDS: Furosemide 100 MG in Sodium Chloride 0.9% 100 ML IVPB SCH (05:51)
[2018-10-29] MEDS: HYDROcodone/Acetaminophen 5/325 mg Tablet PO PRN (09:44)
[2018-10-29] MEDS: Aspirin 81 mg Enteric Coated Tablet PO SCH (09:45)
[2018-10-29] MEDS: PARoxetine 20 MG TAB PO SCH (09:45)
[2018-10-29] MEDS: Carvedilol 6.25 MG TAB PO SCH (09:46)
[2018-10-29] MEDS: Heparin 5,000 UNITS/ML VIAL SC SCH (09:47)
[2018-10-29] MEDS: Gabapentin 300 MG CAP PO SCH (09:47)
[2018-10-29] MEDS: Atorvastatin Calcium 40 MG TAB PO SCH (09:47)
[2018-10-29] MEDS: Chlorhexidine Gluconate 15 ML UDCUP SSP SCH (09:58)
--- NOTE | 2018-10-29 11:23 | PDOC.PN ---
- Subjective Encounter Start Date: 10/29/18 Encounter Start Time: 08:50 Patient seen and examined. No new complaints. No overnight events - Objective Resuscitation Status - Order Detail: 10/26/18 04:47 Resuscitation Status Routine Resuscitation Status: FULL: Full Resuscitation MAR Reviewed: Yes Vital Signs & Weight: Vital Signs (12 hours) Temp Pulse Resp BP BP BP Pulse Ox 10/29/18 09:46 183/77 H 10/29/18 08:00 97.9 F 61 16 179/81 H 95 10/29/18 03:47 98.4 F 60 16 147/70 H 92 L 10/29/18 00:00 171/72 H Weight Admit Weight 216 lb Weight 206 lb 11.2 oz I&O: 10/28/18 10/29/18 10/30/18 06:59 06:59 06:59 Intake Total 1033 965 Output Total 2950 2080 Balance -6237 -2188 Result Diagrams: 10/25/18 17:14 10/28/18 05:43 Additional Labs: Accuchecks 10/29/18 10/29/18 10/28/18 11:07 05:20 20:06 POC Glucose 223 H 185 H 258 H 10/28/18 16:55 POC Glucose 184 H Phys Exam - Physical Examination Constitutional: NAD HEENT: PERRLA, moist MMs, sclera anicteric Neck: no JVD, supple Respiratory: no wheezing, no rales, no rhonchi Cardiovascular: RRR, no significant murmur, no rub Gastrointestinal: soft, non-tender, no distention, positive bowel sounds Musculoskeletal: no edema, pulses present Neurological: non-focal, normal sensation, moves all 4 limbs Lymphatic: no nodes Psychiatric: normal affect, A&O x 3 Skin: no rash, normal turgor Dx/Plan (1) Acute on chronic systolic (congestive) heart failure Code(s): I50.23 - ACUTE ON CHRONIC SYSTOLIC (CONGESTIVE) HEART FAILURE Status : Acute (2) UTI (urinary tract infection) Status: Acute (3) CAD (coronary artery disease) Code(s): I25.10 - ATHSCL HEART DISEASE OF [place] CORONARY ARTERY W/O ANG PCTRS Status: Chronic (4) CKD (chronic kidney disease) stage 4, GFR 15-29 ml/min Code(s): N18.4 - CHRONIC KIDNEY DISEASE, STAGE 4 (SEVERE) Status: Chronic (5) HLD (hyperlipidemia) Code(s): E78.5 - HYPERLIPIDEMIA, UNSPECIFIED Status: Chronic (6) HTN (hypertension) Code(s): I10 - ESSENTIAL (PRIMARY) HYPERTENSION Status: Chronic (7) Myocardial infarction type 2 Code(s): I21.A1 - MYOCARDIAL INFARCTION TYPE 2 Status: Chronic (8) Anxiety and depression Code(s): F41.9 - ANXIETY DISORDER, UNSPECIFIED; F32.9 - MAJOR DEPRESSIVE DISORDER, SINGLE EPISODE, UNSPECIFIED Status: Chronic - Plan cont current plan of care, social work case manager * medication reviewed as below * symptomatic treatment * add lisinopril * change to po lasix * see discharge juan pablo. Review of Systems - Review of Systems ENT: negative: Ear Pain, Ear Discharge, Nose Pain, Nose Discharge, Nose Congestion, Mouth Pain, Mouth Swelling, Throat Pain, Throat Swelling, Other Respiratory: negative: Cough, Dry, Shortness of Breath, Hemoptysis, SOB with Excertion, Pleuritic Pain, Sputum, Wheezing Cardiovascular: negative: chest pain, palpitations, orthopnea, paroxysmal nocturnal dyspnea, edema, light headedness, other Gastrointestinal: negative: Nausea, Vomiting, Abdominal Pain, Diarrhea, Constipation, Melena, Hematochezia, Other Genitourinary: negative: Dysuria, Frequency, Incontinence, Hematuria, Retention , Other Musculoskeletal: negative: Neck Pain, Shoulder Pain, Arm Pain, Back Pain, Hand Pain, Leg Pain, Foot Pain, Other - Medications/Allergies Allergies/Adverse Reactions: Allergies Allergy/AdvReac Type Severity Reaction Status Date / Time No Known Allergies Allergy Verified 10/25/18 21:56 Medications: Current Medications Acetaminophen (Tylenol) 650 mg PO Q4H PRN PRN Reason: Headache/Fever/Mild Pain (1-3) Hydrocodone Bitart/Acetaminophen ([place] 5/325) 1 tab PO Q4H PRN PRN Reason: Pain Last Admin: 10/29/18 09:44 Dose: 1 tab Artificial Tears (Tears Naturale) 2 drop EA EYE PRN PRN PRN Reason: Dry Eyes Aspirin (Ecotrin) 81 mg PO DAILY [facility] Last Admin: 10/29/18 09:45 Dose: 81 mg Atorvastatin Calcium (Lipitor) 40 mg PO DAILY [facility] Last Admin: 10/29/18 09:47 Dose: 40 mg Bisacodyl (Dulcolax) 10 mg [place] DAILYPRN PRN PRN Reason: Constipation Calcium Carbonate (Tums) 1,000 mg PO Q4H PRN PRN Reason: Heartburn or Indigestion Carvedilol (Coreg) 12.5 mg PO BID [facility] Last Admin: 10/29/18 09:46 Dose: 12.5 mg Chlorhexidine Gluconate (Chlorhexidine Gluconate) 15 ml SSP BID [facility] Last Admin: 10/29/18 09:58 Dose: 15 ml Clonidine (Catapres) 0.1 mg PO Q4H PRN PRN Reason: SBP Greater Than 180 Last Admin: 10/28/18 12:56 Dose: 0.1 mg Gabapentin (Neurontin) 300 mg PO BID [facility] Last Admin: 10/29/18 09:47 Dose: 300 mg Glipizide (Glucotrol Xl) 5 mg PO DAILY [facility] Last Admin: 10/29/18 09:45 Dose: 5 mg Guaifenesin (Robitussin Sf) 200 mg PO Q4H PRN PRN Reason: Cough Heparin Sodium (Porcine) (Heparin) 5,000 units SC BID [facility] Last Admin: 10/29/18 09:47 Dose: 5,000 units Hydralazine HCl (Apresoline) 10 mg SLOW IVP Q4H PRN PRN Reason: SBP Greater Than 180 Last Admin: 10/26/18 01:24 Dose: 10 mg Ceftriaxone Sodium 1 gm/ (Sodium Chloride) 100 mls @ 200 mls/hr IVPB Q24HR [facility] Last Admin: 10/29/18 05:51 Dose: 100 mls Furosemide 100 mg/ Sodium (Chloride) 110 mls @ 4.4 mls/hr IVPB INF [facility] Last Admin: 10/29/18 05:51 Dose: 110 mls Labetalol HCl (Normodyne) 10 mg SLOW IVP Q4H PRN PRN Reason: SBP Greater Than 180 Loperamide HCl (Imodium) 2 mg PO PRN PRN PRN Reason: Diarrhea/Loose Stools Loratadine (Claritin) 10 mg PO DAILYPRN PRN PRN Reason: Sinus Symptoms Ondansetron HCl (Zofran Odt) 4 mg PO Q6H PRN PRN Reason: Nausea/Vomiting Ondansetron HCl (Zofran) 4 mg IVP Q6H PRN PRN Reason: Nausea/Vomiting Paroxetine HCl (Paxil) 30 mg PO DAILY [facility] Last Admin: 10/29/18 09:45 Dose: 30 mg Senna/Docusate Sodium (Senokot S) 2 tab PO BID PRN PRN Reason: Constipation Sodium Chloride (Flush - Normal Saline) 10 ml IVF Q12HR [facility] Last Admin: 10/29/18 09:48 Dose: 10 ml Sodium Chloride (Flush - Normal Saline) 10 ml IVF PRN PRN PRN Reason: Saline Flush Sodium Chloride ([place] Nasal [place] 0.65%) 0 ml EA NARE QIDPRN PRN PRN Reason: Nasal Congestion Throat Lozenges (Cepastat Lozenges) 1 doris PO Q2H PRN PRN Reason: Sore Throat
[2018-10-29 12:17] VITALS: BP 184/84; TEMP 97.6
--- NOTE | 2018-10-29 13:47 | DIS ---
DATE OF ADMISSION: 10/26/2018 DATE OF DISCHARGE: 10/29/2018 PRIMARY CARE PHYSICIAN: Dr. Isaac Shearer. DISCHARGE DISPOSITION: Senior Care Unit. PRIMARY DISCHARGE DIAGNOSES: 1. Acute on chronic systolic and diastolic heart failure. 2. Urinary tract infection. 3. Type 2 myocardial infarction. SECONDARY DISCHARGE DIAGNOSES: Hypertension, dyslipidemia, chronic kidney disease stage 3, coronary artery disease, anxiety and depression, chronic systolic and diastolic heart failure. PRIMARY PROCEDURE/OPERATION: None. RADIOLOGICAL INVESTIGATION: Chest x-ray showed pulmonary vascular congestion. Echocardiography showed EF 30% to 40%. SIGNIFICANT LABORATORY DATA: WBC 7.9, hemoglobin 11.6, platelet 276. Sodium 137, potassium 3.4, BUN 25, creatinine 1.65, calcium 8.7. Urinalysis suggestive of UTI. Urine culture grew Klebsiella. DISCHARGE MEDICATIONS: 1. Lipitor 40 mg p.o. daily. 2. Coreg 12.5 mg p.o. b.i.d. 3. Gabapentin 300 mg p.o. b.i.d. 4. Glipizide 5 mg p.o. daily. 6. Iron 65 mg b.i.d. 7. Metformin 1000 mg p.o. daily. 8. Paxil 30 mg p.o. daily. 9. Zantac 75 mg p.o. daily. 10. Cipro 250 mg p.o. b.i.d. for 5 more days. 11. Aspirin 81 mg p.o. daily. 12. Lasix 40 mg p.o. daily. 13. Lisinopril 5 mg p.o. daily. CONTRAINDICATION: None. CODE STATUS: Full code. INPATIENT CONSULT: None. ALLERGIES: NO KNOWN DRUG ALLERGIES. DISCHARGE PLAN: Post hospital, the patient will follow up with primary care physician in 1 week. The patient is discharged to [facility] and subsequently, the patient will make appointment with primary care physician and radio electrician and cardiac rehab. HOSPITAL COURSE: A 68-year-old female with above-mentioned medical problem, who was admitted by Dr. Jake Cerda. Please see his H and P for further details. The patient was having increasing shortness of breath, orthopnea, and cough and that is why she was admitted to the hospital. She was found with congestive heart failure exacerbation. Based on her previous echo, the patient has systolic and diastolic heart failure. The patient was treated with Lasix drip while in hospital and subsequently, we changed to p.o. Lasix. Her urinalysis was also consistent with UTI and while in hospital, she was treated with Rocephin. On discharge, we changed to p.o. Cipro based on culture and sensitivity result. As this patient has systolic heart failure and that is why we added lisinopril on her regimen. Rest of medication was continued as per previous. The patient is seen and examined at bedside today. Please see my progress note from today for further detail. Paperwork for discharge done and discharge medication reconciliation done. Overall, this patient is medically stable for discharge. By the time of discharge, the patient is on room air, ambulatory, tolerating p.o. well. 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 Total time spent on discharge day about 31 minutes Job ID: [id number] [facility]
== END 2018-10-29 13:55 | DRG 280 ==
LOC: ERS 16:46 → 2NO 21:24 → OBSVTOIN 10-26 19:35
PROVIDERS: ADMIT Internal Medicine; ATTEND Internal Medicine
DX: I13.0 Hypertensive heart and chronic kidney disease with heart failure and stage 1 through stage 4 chronic kidney disease, or unspecified chronic kidney disease (principal); I50.23 Acute on chronic systolic (congestive) heart failure; I21.A1 Myocardial infarction type 2; N18.4 Chronic kidney disease, stage 4 (severe); N39.0 Urinary tract infection, site not specified; I25.10 Atherosclerotic heart disease of native coronary artery without angina pectoris; E78.5 Hyperlipidemia, unspecified; D64.9 Anemia, unspecified; I25.5 Ischemic cardiomyopathy; F32.9 Major depressive disorder, single episode, unspecified; E66.9 Obesity, unspecified; E11.22 Type 2 diabetes mellitus with diabetic chronic kidney disease; I16.0 Hypertensive urgency; G43.909 Migraine, unspecified, not intractable, without status migrainosus; F41.9 Anxiety disorder, unspecified; Z68.32 Body mass index [BMI] 32.0-32.9, adult; Z79.84 Long term (current) use of oral hypoglycemic drugs; Z79.82 Long term (current) use of aspirin; Z95.1 Presence of aortocoronary bypass graft; Z90.710 Acquired absence of both cervix and uterus; Z89.431 Acquired absence of right foot
CPT/HCPCS: 36415; 36416; 71046; 80048; 80053; 81003; 81015; 83735; 83880; 84484; 85025; 87077; 87086; 87186; 93005; 93306; 93798; 94760; 96374; J0360; J0696; J1644; J1940; J3490

== ENCOUNTER 2018-11-27 21:07 | Observation (INO) | payer MEDICARE ==
[2018-11-27 21:37] LABS: #Eosinphils 0.1 thou/uL (0.0-0.7); #Lymphocytes 0.9 thou/uL (1.20-3.40); #Monocytes 1.2 thou/uL (0.11-0.59); #Neutrophils 9.3 thou/uL (1.40-6.50); %Basophils 0.1 % (0.0-1.0); %Eosinophils 0.7 % (0.0-10.0); %Lymphocytes 7.7 % (21.0-51.0); %Monocytes 10.5 % (0.0-10.0); Hemoglobin 10.1 g/dL (12.0-16.0); Mean Corpuscular HGB CONC 32.4 g/dL (32.0-36.0); Mean Corpuscular Hemoglobin 29.8 pg (27.0-31.0); Mean Platelet Volume 7.1 fL (7.4-10.4); Platelet Count 369 thou/uL (130-400); RBC Distribution Width 14.2 % (11.5-14.5); Red Blood Cell (RBC) Count 3.39 mill/uL (4.20-5.40); White Blood Cell (WBC) Count 11.4 thou/uL (4.8-10.8)
[2018-11-27] MEDS ORDERED: Dextrose 50% Abboject 50 ML SYRINGE ONE (21:40)
[2018-11-27 21:56] LABS: ALT (SGPT) 41 U/L (8-55); AST (SGOT) 76 U/L (5-34); Albumin 3.1 g/dL (3.4-4.8); Alkaline Phosphatase 763 U/L (40-150); Anion Gap 16 mmol/L (10-20); BUN (Urea Nitrogen) 48 mg/dL (9.8-20.1); Bilirubin, Total 1.5 mg/dL (0.2-1.2); Calc. Creatinine Clearance 0 mL/min (70-130); Calcium 8.5 mg/dL (7.8-10.44); Carbon Dioxide 20 mmol/L (23-31); Chloride 103 mmol/L (98-107); Estimated GFR-MDRD 23; Globulin 4.5 g/dL (2.4-3.5); Protein, Total 7.6 g/dL (6.0-8.3); Sodium 135 mmol/L (136-145)
[2018-11-27 22:01] LABS: Glucose 51 mg/dL (80-115)
--- NOTE | 2018-11-27 22:12 | RAD ---
EXAM: Single view of the chest HISTORY: Weakness COMPARISON: 10/25/2018 FINDINGS: Single view of the chest shows an enlarged but stable cardiomediastinal silhouette. The pa tient is status post sternotomy. There is no evidence of consolidation, mass, or pleural effusion. The bones are unremarkable. IMPRESSION: No evidence of acute cardiopulmonary disease
[2018-11-27 22:33] LABS: Bacteria/HPF 1+ HPF (None Seen); Bilirubin Negative (Negative); Blood, Urine Negative (Negative); Clarity Turbid (Clear); Glucose, Urine (Dipstick) Normal (Negative); Leukocyte Negative Leu/uL (Negative); Nitrite Negative (Negative); Protein, Urine (Dipstick) 100 mg/dL (Neg-Trace); RBC/HPF 0-3 HPF (0-3); Squamous Epithelial 0-3 HPF (0-3); WBC/HPF 0-3 HPF (0-3)
[2018-11-28] MEDS ORDERED: Ondansetron ODT 4 MG TAB PO PRN (00:37)
[2018-11-28] MEDS ORDERED: Ondansetron PF 4 MG/2 ML Vial IVP PRN (00:37)
[2018-11-28] MEDS ORDERED: Acetaminophen 650 MG Suppository PR PRN (00:37)
[2018-11-28] MEDS ORDERED: Dextrose 5% in Water 1,000 ML IV SCH (00:45)
[2018-11-28 01:22] VITALS: BMI 32.1
--- NOTE | 2018-11-28 05:20 | HP ---
PRIMARY CARE DOCTOR: Dr. Isaac Shearer. CODE STATUS: Full code. TIME OF EVALUATION: 12:00 a.m. CHIEF COMPLAINT: Nausea and vomiting. HISTORY OF PRESENT ILLNESS: This is a 68-year-old female patient with past medical history of coronary artery disease, diabetes, hyperlipidemia, hypertension, chronic kidney disease, and CHF. The patient came to the hospital after having complaints of weakness, nausea, and vomiting in the past few days. Information was gathered from the sister. She reported that the patient's symptoms were severe. No clear triggers, no alleviating factors. The patient also was found to be hypoglycemic today and therefore no clear reason, could be related to poor oral intake and also worsening kidney function. The patient has a baseline facial droop, so this is not new. The patient's mentation improved after glucose was given. REVIEW OF SYSTEMS: CONSTITUTIONAL: No fever, chills, or generalized weakness. RESPIRATORY: No cough, sputum production, or shortness of breath. CARDIOVASCULAR: No chest pain or palpitation. GASTROINTESTINAL: The patient has nausea and vomiting two days ago. No abdominal pain. BOTTOM FILLER: The patient has acute encephalopathy due to hypoglycemia. No headache. GENITOURINARY: No burning on urination. EXTREMITIES: No leg swelling. All other systems were reviewed and negative except for the findings mentioned above. PAST MEDICAL HISTORY: As mentioned in HPI. PAST SURGICAL HISTORY: Left carotid endarterectomy, surgical history of coronary artery bypass graft surgery x3 vessels, hysterectomy, orthopedic surgery left elbow, partial amputation of the right foot, and right eye cataract. PSYCHIATRIC HISTORY: Includes depression and mental retardation. SOCIAL HISTORY: No alcohol. No drugs. No smoking history. FAMILY HISTORY: Reviewed and noncontributory to current presentation. ALLERGIES: NO KNOWN DRUG ALLERGIES. REPORTED MEDICATIONS: 1. Furosemide. 2. Lisinopril. 3. Iron. 4. Zantac. 5. Paroxetine. 6. Metformin. 7. Atorvastatin. 8. Aspirin. 9. Glipizide. 10. Neomycin. 11. Systane. 12. Carvedilol. 13. Gabapentin. PHYSICAL EXAMINATION: VITAL SIGNS: On presentation, blood pressure 128/75, heart rate 56, respiratory rate was 17. Pain was 0/10. Oxygen saturation was 96% on room air. GENERAL APPEARANCE: The patient is alert, oriented, in no acute distress. HEENT: Eyes, normal conjunctivae. Moist oral mucosa. Anicteric. No JVD. RESPIRATORY: Bilateral air entry. No rales. No wheezing. Symmetric expansion. CARDIOVASCULAR: Normal rate and regular rhythm. No murmurs. No gallop. No edema. ABDOMEN: Soft. Normal bowel sounds. MUSCULOSKELETAL: Baseline range of motion and strength. SKIN: Warm, intact. No pallor. No rash. No redness. Capillary refill seems to be intact. NEURO: No evidence of any new focal weakness. Cranial nerve seems to be intact. PSYCH: The patient is in good mood. No anxiety. Optimal judgment. DIAGNOSTIC STUDIES: EKG was reviewed. The patient has a sinus bradycardia at the rate of 55, T-wave abnormalities, consider lateral ischemia. QT corrected 485. Chest x-ray was reviewed. The patient has no evidence of acute cardiopulmonary disease. LABORATORY DATA: Reviewed. The patient has white count of 11.4, hemoglobin 10.1, MCV 92, and platelet count 369. Chemistry: Sodium 135, potassium 4.0, chloride 103, carbon dioxide 20, anion gap 16, BUN 48, creatinine 2.16, in previous admission was 1.65. GFR 23. Glucose 51. Repeat glucose 148 after correction. Total bilirubin 1.5. AST 76, ALT 41, alkaline phosphatase 763. Troponin was negative. Albumin 3.1. Serum total protein 7.6. UA was done, the patient has negative urine. ASSESSMENT AND PLAN: The patient will be placed in the hospital with following medical problems: 1. Acute hypoglycemia. The patient takes glipizide at home, has not had any change in those, most likely the change in her response to medication is due to worsening kidney failure, we will hold all the anti-diabetic medications for the patient and D5W and now we will reconcile home medications. We will be holding metformin and glipizide for now. These might need to be re-adjusted if kidney function continues to deteriorate. 2. Uncontrolled diabetes. Treatment as above. 3. Hyponatremia, sodium 135, this is mild, no need for any acute intervention. We will monitor sodium level and treat accordingly. 4. Normocytic anemia with a hemoglobin of 10, I think it is stable compared with previous admissions. It is likely secondary to underlying chronic kidney disease. We will monitor and treat accordingly. 5. Acute on chronic kidney disease. There is an increase in creatinine from previous values. The patient will receive hydration, I will monitor kidney function, if not improving, might need assistance from Nephrology. 6. Deep venous thrombosis prophylaxis. 7. History of coronary artery disease, this problem is chronic, seems to be stable. Reconcile home medications. 8. Hyperlipidemia. Low-cholesterol diet is advised. Reconcile home medications. 9. Controlled hypertension, reconcile home medications. Monitor and adjust as needed. Job ID: [id number]
[2018-11-28 06:37] LABS: #Lymphocytes 0.8 thou/uL (1.20-3.40); #Monocytes 1.2 thou/uL (0.11-0.59); #Neutrophils 8.6 thou/uL (1.40-6.50); %Basophils 0.3 % (0.0-1.0); %Eosinophils 0.4 % (0.0-10.0); %Lymphocytes 7.5 % (21.0-51.0); %Monocytes 11.1 % (0.0-10.0); %Neutrophils 80.6 % (42.0-75.0); Hemoglobin 9.8 g/dL (12.0-16.0); Mean Corpuscular HGB CONC 32.2 g/dL (32.0-36.0); Mean Corpuscular Hemoglobin 29.8 pg (27.0-31.0); Mean Corpuscular Volume 92.4 fL (78.0-98.0); Mean Platelet Volume 7.6 fL (7.4-10.4); Platelet Count 347 thou/uL (130-400); RBC Distribution Width 14.1 % (11.5-14.5); Red Blood Cell (RBC) Count 3.29 mill/uL (4.20-5.40); White Blood Cell (WBC) Count 10.7 thou/uL (4.8-10.8)
[2018-11-28 06:58] LABS: Anion Gap 15 mmol/L (10-20); BUN (Urea Nitrogen) 49 mg/dL (9.8-20.1); Calc. Creatinine Clearance 36 mL/min (70-130); Calcium 8.2 mg/dL (7.8-10.44); Carbon Dioxide 21 mmol/L (23-31); Chloride 101 mmol/L (98-107); Estimated GFR-MDRD 22; Glucose 174 mg/dL (80-115); Potassium 4.4 mmol/L (3.5-5.1); Sodium 133 mmol/L (136-145)
[2018-11-28] MEDS ORDERED: Sodium Chloride 0.9% 500 ML IV SCH (08:45)
[2018-11-28] MEDS ORDERED: cefTRIAXone\\ROCEPHIN 1 GM in Sodium Chloride 0.9% 100 ML IVPB SCH (08:45)
[2018-11-28] MEDS ORDERED: Enoxaparin Sodium 30 MG/0.3 ML SYRINGE SC SCH (09:00)
[2018-11-28] MEDS ORDERED: Prevnar 13-Val Conj/PF 0.5 ML SYRINGE IM ONE (09:00)
[2018-11-28] MEDS: PARoxetine 20 MG TAB PO SCH (09:46)
[2018-11-28] MEDS: Carvedilol 6.25 MG TAB PO SCH ×2 (09:46→20:13)
[2018-11-28] MEDS: Acetaminophen 325 MG TAB PO PRN ×3 (09:47→20:13)
[2018-11-28] MEDS: Gabapentin 300 MG CAP PO SCH ×2 (09:47→20:13)
--- NOTE | 2018-11-28 15:40 | PDOC.PN ---
- Subjective Encounter Start Date: 11/28/18 Encounter Start Time: 10:15 Subjective: pt up in bed feels well - Objective Resuscitation Status - Order Detail: 11/28/18 00:37 Resuscitation Status Routine Resuscitation Status: FULL: Full Resuscitation Vital Signs & Weight: Vital Signs (12 hours) Temp Pulse Resp BP BP Pulse Ox 11/28/18 12:50 99.0 F 70 20 168/75 H 92 L 11/28/18 09:46 153/81 H 11/28/18 08:00 98.8 F 66 93 L 11/28/18 07:58 98.8 F 66 20 153/81 H 93 L 11/28/18 04:00 98.4 F 63 20 154/81 H 95 Weight Weight 205 lb I&O: 11/27/18 11/28/18 11/29/18 06:59 06:59 06:59 Intake Total 870 Balance 870 Result Diagrams: 11/28/18 04:25 11/28/18 04:25 Additional Labs: Accuchecks 11/28/18 11/28/18 11/27/18 11:24 05:34 22:44 POC Glucose 285 H 199 H 148 H 11/27/18 21:31 POC Glucose 49 L* Phys Exam - Physical Examination Respiratory: no wheezing, no rales, no rhonchi, clear to auscultation bilateral Cardiovascular: RRR, no significant murmur, no rub, gallop, irregular Gastrointestinal: soft, non-tender, no distention, positive bowel sounds Musculoskeletal: no edema, pulses present, edema present Dx/Plan (1) Hypoglycemia Code(s): E16.2 - HYPOGLYCEMIA, UNSPECIFIED Status: Acute (2) HTN (hypertension) Code(s): I10 - ESSENTIAL (PRIMARY) HYPERTENSION Status: Chronic (3) CAD (coronary artery disease) Code(s): I25.10 - ATHSCL HEART DISEASE OF [place] CORONARY ARTERY W/O ANG PCTRS Status: Chronic (4) CKD (chronic kidney disease) stage 4, GFR 15-29 ml/min Code(s): N18.4 - CHRONIC KIDNEY DISEASE, STAGE 4 (SEVERE) Status: Chronic - Plan pt's blood sugars have improved -: will continue iv abx for now possible discharge in am if her creatinine -: improves * . Review of Systems - Review of Systems Respiratory: negative: Cough, Dry, Shortness of Breath, Hemoptysis, SOB with Excertion, Pleuritic Pain, Sputum, Wheezing Cardiovascular: negative: chest pain, palpitations, orthopnea, paroxysmal nocturnal dyspnea, edema, light headedness, other - Medications/Allergies Allergies/Adverse Reactions: Allergies Allergy/AdvReac Type Severity Reaction Status Date / Time No Known Allergies Allergy Verified 11/28/18 01:20 Medications: Current Medications Acetaminophen (Tylenol) 650 mg PO Q4H PRN PRN Reason: Headache/Fever/Mild Pain (1-3) Last Admin: 11/28/18 09:47 Dose: 650 mg Acetaminophen (Tylenol) 650 mg [place] Q4H PRN PRN Reason: Headache/Fever/Mild Pain (1-3) Carvedilol (Coreg) 12.5 mg PO BID [facility] Last Admin: 11/28/18 09:46 Dose: 12.5 mg Gabapentin (Neurontin) 300 mg PO BID [facility] Last Admin: 11/28/18 09:47 Dose: 300 mg Sodium Chloride (Normal Saline 0.9%) 500 mls @ 50 mls/hr IV .Q10H [facility] Stop: 11/28/18 18:44 Last Admin: 11/28/18 09:50 Dose: 500 mls Ondansetron HCl (Zofran Odt) 4 mg PO Q6H PRN PRN Reason: Nausea/Vomiting Ondansetron HCl (Zofran) 4 mg IVP Q6H PRN PRN Reason: Nausea/Vomiting Paroxetine HCl (Paxil) 30 mg PO DAILY [facility] Last Admin: 11/28/18 09:46 Dose: 30 mg Sodium Chloride (Flush - Normal Saline) 10 ml IVF Q12HR [facility] Last Admin: 11/28/18 09:47 Dose: 10 ml Sodium Chloride (Flush - Normal Saline) 10 ml IVF PRN PRN PRN Reason: Saline Flush
[2018-11-28] MEDS ORDERED: Dextrose 50% Abboject 50 ML SYRINGE SLOW IVP PRN (22:07)
[2018-11-29 05:57] LABS: BUN (Urea Nitrogen) 53 mg/dL (9.8-20.1); Calc. Creatinine Clearance 36 mL/min (70-130); Calcium 8.4 mg/dL (7.8-10.44); Carbon Dioxide 17 mmol/L (23-31); Chloride 104 mmol/L (98-107); Estimated GFR-MDRD 22; Glucose 196 mg/dL (80-115); Potassium 4.3 mmol/L (3.5-5.1); Sodium 132 mmol/L (136-145)
[2018-11-29 05:58] LABS: Anion Gap 15 mmol/L (10-20)
[2018-11-29] MEDS: Gabapentin 300 MG CAP PO SCH ×2 (08:24→20:51)
[2018-11-29] MEDS: Carvedilol 6.25 MG TAB PO SCH ×2 (08:24→20:51)
[2018-11-29] MEDS: PARoxetine 20 MG TAB PO SCH (08:24)
[2018-11-29] MEDS: Acetaminophen 325 MG TAB PO PRN ×2 (10:13→20:50)
[2018-11-29] MEDS: HumaLOG 300 UNITS/3 ML VIAL SC PRN ×2 (12:27→17:26)
[2018-11-29 14:11] LABS: Hemoglobin A1c 6.3 % (4.0-6.0)
--- NOTE | 2018-11-29 15:22 | PDOC.PN ---
- Subjective Encounter Start Date: 11/29/18 Encounter Start Time: 10:30 Subjective: pt up in bed, sister at bedside who stated that -: pt became hypoglycemic after she ate her dinner - Objective Resuscitation Status - Order Detail: 11/28/18 00:37 Resuscitation Status Routine Resuscitation Status: FULL: Full Resuscitation Vital Signs & Weight: Vital Signs (12 hours) Temp Pulse Resp BP Pulse Ox 11/29/18 07:59 98.4 F 61 20 143/68 H 92 L 11/29/18 04:00 98.0 F 62 18 136/76 Weight Weight 205 lb I&O: 11/28/18 11/29/18 11/30/18 06:59 06:59 06:59 Intake Total 2400 Balance 2400 Result Diagrams: 11/28/18 04:25 11/29/18 04:18 Additional Labs: Accuchecks 11/29/18 11/29/18 11/28/18 11:24 05:39 20:20 POC Glucose 237 H 213 H 258 H 11/28/18 11/28/18 16:27 01:03 POC Glucose 260 H 134 H Phys Exam - Physical Examination Neck: no nodes, no JVD, supple, full ROM Respiratory: no wheezing, no rales, no rhonchi, wheezing present, clear to auscultation bilateral Cardiovascular: RRR, no significant murmur, no rub, gallop, irregular Gastrointestinal: soft, non-tender, no distention, positive bowel sounds Dx/Plan (1) Hypoglycemia Code(s): E16.2 - HYPOGLYCEMIA, UNSPECIFIED Status: Acute (2) HTN (hypertension) Code(s): I10 - ESSENTIAL (PRIMARY) HYPERTENSION Status: Chronic (3) CAD (coronary artery disease) Code(s): I25.10 - ATHSCL HEART DISEASE OF [place] CORONARY ARTERY W/O ANG PCTRS Status: Chronic (4) CKD (chronic kidney disease) stage 4, GFR 15-29 ml/min Code(s): N18.4 - CHRONIC KIDNEY DISEASE, STAGE 4 (SEVERE) Status: Chronic - Plan i will start the glipizide but will lower the dose -: her hbg alc is 6.6 and will disconitnue her metformin. -: she has ckd need to be careful. she lives with sister * . Review of Systems - Review of Systems Respiratory: negative: Cough, Dry, Shortness of Breath, Hemoptysis, SOB with Excertion, Pleuritic Pain, Sputum, Wheezing Cardiovascular: negative: chest pain, palpitations, orthopnea, paroxysmal nocturnal dyspnea, edema, light headedness, other Gastrointestinal: negative: Nausea, Vomiting, Abdominal Pain, Diarrhea, Constipation, Melena, Hematochezia, Other - Medications/Allergies Allergies/Adverse Reactions: Allergies Allergy/AdvReac Type Severity Reaction Status Date / Time No Known Allergies Allergy Verified 11/28/18 01:20 Medications: Current Medications Acetaminophen (Tylenol) 650 mg PO Q4H PRN PRN Reason: Headache/Fever/Mild Pain (1-3) Last Admin: 11/29/18 10:13 Dose: 650 mg Acetaminophen (Tylenol) 650 mg [place] Q4H PRN PRN Reason: Headache/Fever/Mild Pain (1-3) Aspirin (Aspirin Chewable) 81 mg PO DAILY [facility] Atorvastatin Calcium (Lipitor) 40 mg PO DAILY [facility] Carvedilol (Coreg) 12.5 mg PO BID [facility] Last Admin: 11/29/18 08:24 Dose: 12.5 mg Dextrose/Water (Dextrose 50%) 25 gm SLOW IVP PRN PRN PRN Reason: Hypoglycemia Gabapentin (Neurontin) 300 mg PO BID [facility] Last Admin: 11/29/18 08:24 Dose: 300 mg Glipizide (Glucotrol Xl) 2.5 mg [facility] Glucagon (Glucagon) 1 mg IM PRN PRN PRN Reason: Hypoglycemia Insulin Human Lispro (Humalog) 0 units [place] .MILD SLIDING SCALE PRN PRN Reason: Mild Correctional Scale Last Admin: 11/29/18 12:27 Dose: 3 unit Ondansetron HCl (Zofran Odt) 4 mg PO Q6H PRN PRN Reason: Nausea/Vomiting Ondansetron HCl (Zofran) 4 mg IVP Q6H PRN PRN Reason: Nausea/Vomiting Paroxetine HCl (Paxil) 30 mg PO DAILY [facility] Last Admin: 11/29/18 08:24 Dose: 30 mg Sodium Chloride (Flush - Normal Saline) 10 ml IVF Q12HR [facility] Last Admin: 11/29/18 08:24 Dose: 10 ml Sodium Chloride (Flush - Normal Saline) 10 ml IVF PRN PRN PRN Reason: Saline Flush
[2018-11-30 05:22] LABS: Anion Gap 12 mmol/L (10-20); BUN (Urea Nitrogen) 55 mg/dL (9.8-20.1); Calc. Creatinine Clearance 40 mL/min (70-130); Calcium 8.7 mg/dL (7.8-10.44); Carbon Dioxide 21 mmol/L (23-31); Chloride 103 mmol/L (98-107); Estimated GFR-MDRD 25; Glucose 161 mg/dL (80-115); Potassium 4.6 mmol/L (3.5-5.1); Sodium 131 mmol/L (136-145)
[2018-11-30] MEDS: Gabapentin 300 MG CAP PO SCH (08:25)
[2018-11-30] MEDS: Carvedilol 6.25 MG TAB PO SCH (08:25)
[2018-11-30] MEDS: PARoxetine 20 MG TAB PO SCH (08:26)
[2018-11-30] MEDS: Acetaminophen 325 MG TAB PO PRN (08:26)
[2018-11-30] MEDS ORDERED: Atorvastatin Calcium 40 MG TAB PO SCH (09:00)
[2018-11-30] MEDS ORDERED: Aspirin Chewable 81 MG TAB PO SCH (09:00)
[2018-11-30 09:35] VITALS: BP 167/79; TEMP 98.7
--- NOTE | 2018-11-30 21:34 | DIS ---
DATE OF ADMISSION: 11/27/2018 DATE OF DISCHARGE: 11/30/2018 DISCHARGE DIAGNOSES: 1. Hypoglycemia. 2. Hypertension. 3. Coronary artery disease. 4. Chronic kidney disease. 5. She has some metabolic acidosis, non-anion gap. HOSPITAL COURSE: The patient is a 68-year-old female, who initially presented to the hospital with diaphoresis. Please refer to the H and P for further details. She was found to have a very low blood sugar of I believe around 49. At this time, she was hydrated with IV fluids and also was given D10. While she was on D10 drip, her blood sugars continued to improve. I did speak with her sister who lives with the patient stated that the patient has been taking her normal medications which she takes metformin at home once a day, which is a 1000 mg in the morning and also takes glipizide 5 mg in the morning. The patient's sister also states that she has been eating all day and is unclear of why her sugars dropped. The patient does have mild acute kidney injury. At this time, she was hydrated. I did tell the sister that I will discontinue the metformin and also will check a hemoglobin A1c. Her hemoglobin A1c happened to be 0.3. At this time, I would drop her glimepiride to 2.5 mg daily and I will ask her to follow up with the primary care doctor and also check her Accu-Cheks at home. HOME MEDICATIONS: 1. Ranitidine 75 mg daily. 2. Paroxetine 30 mg daily. 3. Lisinopril 5 mg daily. 4. Iron 65 mg b.i.d. 5. Lasix 40 mg daily. 6. Carvedilol 12.5 b.i.d. 7. Atorvastatin 40 mg daily. 8. Aspirin 81 mg daily. 9. Glipizide 2.5 mg p.o. daily. DISCHARGE INSTRUCTIONS: She will follow up with her primary and also, I told her to check her blood sugars. I think she is well controlled. Her sister states that she does make meals at home. Since her sister is also diabetic, they have been controlling all their blood sugars with the diet and weight loss. Again, she will follow up with her primary in the setting of her kidney function being so variable. I think the metformin is not a very good option for her, so I will discontinue the metformin. However, metformin is not supposed to cause hypoglycemia; but at this time, it could cause significant acidosis and I will hold off on that and I will decrease the glipizide to 2.5. Job ID: [id number]
--- NOTE | 2018-11-30 21:36 | EKG ---
Test Reason : Blood Pressure : / mmHG Vent. Rate : 055 BPM Atrial Rate : 055 BPM P-R Int : 194 ms QRS Dur : 084 ms QT Int : 508 ms P-R-T Axes : 015 019 100 degrees QTc Int : 485 ms Sinus bradycardia T wave abnormality, consider lateral ischemia Prolonged QT Abnormal ECG Confirmed by LEVAR LUTZ M.D. ([id number]), editorial writer CHRISTINE LAM ([id number] on 11/30/2018 9:35:25 PM Referred By: Confirmed By:LEVAR LUTZ M.D.
== END 2018-11-30 12:39 | disposition home or self-care (01) ==
LOC: ERS 21:07 → T4-A 23:45
PROVIDERS: ADMIT Hospitalist; ATTEND Hospitalist
DX: E11.649 Type 2 diabetes mellitus with hypoglycemia without coma (principal); I25.10 Atherosclerotic heart disease of native coronary artery without angina pectoris; E78.5 Hyperlipidemia, unspecified; E87.1 Hypo-osmolality and hyponatremia; I13.0 Hypertensive heart and chronic kidney disease with heart failure and stage 1 through stage 4 chronic kidney disease, or unspecified chronic kidney disease; E11.22 Type 2 diabetes mellitus with diabetic chronic kidney disease; N18.4 Chronic kidney disease, stage 4 (severe); I50.9 Heart failure, unspecified; D63.1 Anemia in chronic kidney disease; N17.9 Acute kidney failure, unspecified; F32.9 Major depressive disorder, single episode, unspecified; F79 Unspecified intellectual disabilities; E11.10 Type 2 diabetes mellitus with ketoacidosis without coma; Z79.82 Long term (current) use of aspirin; Z79.84 Long term (current) use of oral hypoglycemic drugs; Z79.899 Other long term (current) drug therapy; Z95.1 Presence of aortocoronary bypass graft; Z98.890 Other specified postprocedural states
CPT/HCPCS: 71045; 80048 ×3; 80053; 82962 ×4; 83036; 84484; 85025 ×2; 90670; 93005; 96361 ×2; 96372; 96374; 99285; G0009; G0378 ×3; 36415; 36416; 81003; 81015; 90471; J1650

== ENCOUNTER 2018-12-10 12:12 | Inpatient (IN) | payer MEDICARE ==
--- NOTE | 2018-12-10 12:35 | RAD ---
XR Chest Pa Lat STANDARD HISTORY: Cough elevated white blood cell count COMPARISON: 10/25/2018 study FINDINGS: Heart size appears borderline in size with postop sternotomy changes. Interstitial scarring is seen in both lung carty. IMPRESSION: Borderline heart size with chronic interstitial lung change.
[2018-12-10 12:39] LABS: #Eosinphils 0.1 thou/uL (0.0-0.7); #Lymphocytes 0.8 thou/uL (1.20-3.40); #Monocytes 0.8 thou/uL (0.11-0.59); #Neutrophils 13.9 thou/uL (1.40-6.50); %Basophils 0.3 % (0.0-1.0); %Eosinophils 0.5 % (0.0-10.0); %Lymphocytes 5.3 % (21.0-51.0); %Monocytes 5.4 % (0.0-10.0); %Neutrophils 88.5 % (42.0-75.0); Hemoglobin 9.7 g/dL (12.0-16.0); Mean Corpuscular Hemoglobin 29.1 pg (27.0-31.0); Mean Platelet Volume 6.7 fL (7.4-10.4); Platelet Count 438 thou/uL (130-400); RBC Distribution Width 13.9 % (11.5-14.5); Red Blood Cell (RBC) Count 3.33 mill/uL (4.20-5.40); White Blood Cell (WBC) Count 15.7 thou/uL (4.8-10.8)
[2018-12-10 13:01] LABS: ALT (SGPT) 30 U/L (8-55); AST (SGOT) 46 U/L (5-34); Albumin 2.8 g/dL (3.4-4.8); Alkaline Phosphatase 865 U/L (40-150); Anion Gap 14 mmol/L (10-20); BUN (Urea Nitrogen) 63 mg/dL (9.8-20.1); Bilirubin, Total 1.2 mg/dL (0.2-1.2); Calc. Creatinine Clearance 0 mL/min (70-130); Calcium 8.5 mg/dL (7.8-10.44); Carbon Dioxide 15 mmol/L (23-31); Chloride 110 mmol/L (98-107); Estimated GFR-MDRD 22; Globulin 4.6 g/dL (2.4-3.5); Glucose 141 mg/dL (80-115); Potassium 5.1 mmol/L (3.5-5.1); Protein, Total 7.4 g/dL (6.0-8.3); Sodium 134 mmol/L (136-145)
[2018-12-10 13:10] LABS: Bilirubin Negative (Negative); Blood, Urine Moderate (Negative); Glucose, Urine (Dipstick) Negative (Negative); Leukocyte Small (Negative); Nitrite Negative (Negative); Protein, Urine (Dipstick) 100 mg/dL (Neg-Trace); Urobilinogen 0.2 mg/dL (Less than 2)
[2018-12-10 13:24] LABS: Clarity Hazy (Clear)
[2018-12-10 13:34] LABS: Bacteria/HPF 1+ HPF (None Seen); RBC/HPF 0-3 HPF (0-3)
--- NOTE | 2018-12-10 14:59 | CT ---
CT ABDOMEN AND PELVIS WITHOUT CONTRAST: 12/10/18 HISTORY: Abnormal labs. Potassium and WBCs were high. Chronic renal failure, diabetes, hypertension, atheroscl erotic vascular disease. CHF. COMPARISON: None. FINDINGS: Absence of oral and IV contrast reduces the sensitivity of the exam particularly for evaluation of so lid organs and bowel. The lung bases are clear. There is moderate amount of free fluid in the abdomen and pelvis consistent with ascites. Calcified gallstone is present. No calculi seen in the kidneys, ureters or the urinar y bladder. No hydroureteronephrosis is noted on either side. No free air is seen. There are vascular calcifications without evidence of aneurysmal dilatation of t he abdominal aorta. There are degenerative changes in the spine. The uterus is present. The spleen me asures 13 cm in AP dimension. IMPRESSION: 1. Ascites. 2. Borderline splenomegaly. 3. Cholelithiasis. 4. No CT evidence of urinary tract calculi or obstruction. POS: [facility]
[2018-12-10 15:12] LABS: CK (CPK) 43 U/L (29-168); Lipase 127 U/L (8-78)
[2018-12-10] MEDS ORDERED: Morphine 4 MG/ML VIAL ONE (15:18)
[2018-12-10] MEDS ORDERED: Ondansetron PF 4 MG/2 ML Vial ONE ×2 (15:19→17:09)
--- NOTE | 2018-12-10 16:43 | ULT ---
ULTRASOUND RIGHT UPPER QUADRANT: 12/10/18 HISTORY: Pain. COMPARISON: None. FINDINGS: Real time pierson scale and color evaluation of the right upper quadrant of the abdomen was performed. The visualized portion of the pancreas, aorta and IVC are unremarkable. Mildly coarsened hepatic echo texture. The liver measures 20 cm in length. Portal vein is patent. Antegrade flow. The common bile duct is normal measuring 4 mm. Gallbladder is contracted. Mild wall thickening. There is cholelithiasis. Right kidney measures 10.9 x 5 x 5.2 cm. Mild perihepatic ascites. IMPRESSION: 1. Cholelithiasis with contracted gallbladder. No evidence for acute cholecystitis. 2. No intrahepatic or extrahepatic biliary dilatation. 3. Moderate volume ascites. 4. Coarsened hepatic echotexture can be seen with acute hepatitis or chronic congestive changes. POS: HOME
[2018-12-10] MEDS ORDERED: Ondansetron PF 4 MG/2 ML Vial IVP PRN (18:23)
[2018-12-10] MEDS ORDERED: Ondansetron ODT 4 MG TAB SL PRN (18:23)
[2018-12-10] MEDS ORDERED: Morphine 4 MG/ML VIAL SLOW IVP PRN (18:23)
[2018-12-10] MEDS ORDERED: Senokot S 8.6-50 MG TAB PO PRN (18:38)
[2018-12-10] MEDS ORDERED: Bisacodyl 10 MG SUPP PR PRN (18:38)
[2018-12-10] MEDS ORDERED: Guaifenesin DM 100-10/5 ML UDCUP PO PRN (18:38)
--- NOTE | 2018-12-10 19:37 | HP ---
REASON FOR ADMISSION: CHF exacerbation, right upper quadrant abdominal pain, acute kidney injury, elevated white count for evaluation, hypoalbuminemia, metabolic acidosis, possible UTI. HISTORY OF PRESENTING ILLNESS: The patient gives history of waking up with abdominal pain. This was in the right upper quadrant. The pain was 6/10 in intensity and was sharp, shooting pain. She vomited once after arrival here. The patient also says that her lower extremity edema has gotten better from last 6 weeks. No complaints of chest pain or palpitations at present. She normally uses walker to ambulate inside the house. She moved from [place] two years ago and is a resident of the [facility]. The patient has had subjective fever at home, none here. No complaints of cough or expectoration. Has no complaints of urinary frequency or urgency. PAST MEDICAL AND SURGICAL HISTORY: History of coronary artery disease, history of CHF with ejection fraction of around 35%, severe calcification of mitral valve leaflets on echo done in October of this year. She was hospitalized here in the early part of this month for hypoglycemia. Coronary angiogram done in May of this year showed patent grafts to LAD and obtuse marginal 1, but SVG graft to RCA was occluded, diabetes mellitus type 2, dyslipidemia, history of facial palsy from , left carotid endarterectomy, hysterectomy, left elbow surgery, right forefoot amputation, CABG done in [place], CABG for one-vessel disease in 2013, ischemic cardiomyopathy, migraine headaches, and left elbow surgery. CURRENT MEDICATIONS: The patient is on, 1. Lasix 40 mg daily. 2. Lisinopril 5 mg daily. 3. Iron 65 mg twice daily. 4. Zantac 75 mg daily. 5. Paroxetine 45 mg p.o. daily. 6. Carvedilol 12.5 mg twice daily. 7. Atorvastatin 40 mg p.o. daily. 8. Aspirin 81 mg daily. 9. Glipizide 2.5 mg daily. 10. Gabapentin 300 mg p.o. three times daily. ALLERGIES: NO KNOWN DRUG ALLERGIES. PERSONAL HISTORY: Does not abuse alcohol or drugs. No history of smoking. The patient normally ambulates with a walker. FAMILY HISTORY: Mother at the age of 63 years. She has had bilateral lower extremity amputations done. She was a heavy smoker. Father of massive [place] at the age of 62 years. The patient has two living children. had a daughter who as an . CODE STATUS: Full. Power of defense attorney is her sister, Ms. Shalonda Nielson. REVIEW OF SYSTEMS: CONSTITUTIONAL: Negative for weight loss or gain, ability to conduct usual activities. SKIN: Negative for rash, itching. EYES: Negative for double vision, pain. ENT/MOUTH: Negative for nose bleeding, neck stiffness, pain, tenderness. CARDIOVASCULAR: Negative for palpitations, dyspnea on exertion, orthopnea. RESPIRATORY: Negative for shortness of breath, wheezing, cough, hemoptysis, fever or night sweats. GASTROINTESTINAL: Negative for poor appetite, abdominal pain, heartburn, nausea, vomiting, constipation, or diarrhea. GENITOURINARY: Negative for urgency, frequency, dysuria, nocturia. MUSCULOSKELETAL: Negative for pain, swelling. NEUROLOGIC/PSYCHIATRIC: Negative for anxiety, depression. ALLERGY/IMMUNOLOGIC: Negative for skin rash, bleeding tendency. PHYSICAL EXAMINATION: GENERAL: The patient is a 68-year-old female, who is currently not in any acute distress. VITAL SIGNS: Blood pressure 154/80, pulse 66 per minute, respiratory rate 18 per minute, temperature 98.4 degrees Fahrenheit, and saturating 96% on room air. NECK: Supple. No elevated JVD. HEENT: Eyes; extraocular muscles intact. Pupils reacting to light. Oral cavity, mucous membranes are dry. No exudates or congestion. CARDIOVASCULAR SYSTEM: S1 and S2 heard. No murmur. RESPIRATORY SYSTEM: Air entry 1+ bilateral. Scattered rales plus in the infrascapular area. ABDOMEN: Distended with likely fluid. There is right upper quadrant tenderness. No rigidity or guarding. Bowel sounds are heard. EXTREMITIES: There is 1 to 2+ peripheral edema. No calf tenderness. VASCULAR SYSTEM: Peripheral pulses 1+ bilateral. No ischemic ulcerations or gangrene. 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 No other focal deficits noted. PSYCHIATRIC SYSTEM: The patient has issues with her memory, otherwise is oriented. Responds well to verbal questions. No hallucinations or delusions. LABORATORY DATA: EKG done shows sinus rhythm at 76 beats per minute, has signs of first-degree AV block. Chest x-ray done shows cardiomegaly with pulmonary vascular congestion. CT abdomen and pelvis without contrast done shows moderate ascites, borderline splenomegaly with spleen measuring 13 cm, cholelithiasis. There is a calcified gallstone. No calculi in the kidneys, ureters, or bladder. No hydroureteronephrosis seen. The vascular calcifications in the abdominal aorta. Right upper quadrant ultrasound done shows cholelithiasis with contracted gallbladder. Common bile duct is 4 mm. There is mild wall thickening. No intra or extrahepatic biliary dilatation seen. Moderate volume ascites is seen. Coarse hepatic echotexture seen. White count of 15, H and H of 9 and 30, platelet count 438 with 88% neutrophils. BUN 63, creatinine 2.2, serum bicarb 15, potassium is 5.1, serum glucose 141, AST 46, ALT 30, and alkaline phosphatase 865, total bilirubin 1.2. BNP 1251. CK levels 43. Albumin is 2.8. Globulin is 4.6, lipase is 127. UA shows small leuk esterase with 1+ bacteria. CLINICAL IMPRESSION AND PLAN: The patient will be admitted to medical floor for acute on chronic congestive heart failure exacerbation, acute kidney injury on top of chronic kidney disease, elevated alkaline phosphatase for further evaluation, reversal of albumin-globulin ratio to rule out myeloma, metabolic acidosis due to kidney injury on top of chronic kidney disease, possible urinary tract infection. We will place her on Lasix 40 mg IV q.12 hourly. We will closely monitor her renal function. I have consulted Dr. Berumen for Nephrology. We will consult Dr. Hernández for Cardiology in a.m. We will obtain GGT levels, SHILPI with reflex, smooth muscle antibodies, antimitochondrial antibodies, acute hepatitis panel in view of liver changes seen on ultrasound and abnormally elevated alkaline phosphatase. We will also obtain serum and urine protein electrophoresis and light chains. A TSH level will be obtained in the morning as well. We will continue small dose of Coreg and lisinopril to accommodate for diuresis. She will be on a renal dose of Levaquin and we will discontinue this if cultures are negative. Blood and urine cultures are obtained in the ER. She will be on a low dose of glipizide, Neurontin for neuropathy, Lipitor, aspirin, and Paxil as before. We will continue to closely monitor her on medical floor. Please note the patient has multiple medical issues. The prognosis is guarded. Job ID: [id number]
[2018-12-10 20:00] LABS: HBCM Index 0.07 S/CO (0-0.79); Hep A IgM AB Non-Reactive (NonReactive); Hep B Surf Ag Non-Reactive S/CO (NonReactive); Hep C IgG Ab Non-Reactive (NonReactive); Hep C Index 0.06 S/CO (0-0.79); Hepatitis B Core IgM Abs Non-Reactive (NonReactive)
[2018-12-10] MEDS: Gabapentin 300 MG CAP PO SCH (21:18)
[2018-12-10] MEDS: Acetaminophen 325 MG TAB PO PRN (21:18)
[2018-12-10] MEDS: Carvedilol 6.25 MG TAB PO SCH (21:18)
[2018-12-10] MEDS: Albumin 25% 25 GM/100 ML BOT IVPB SCH (22:43)
--- NOTE | 2018-12-11 04:31 | CON ---
DATE OF CONSULTATION: HISTORY OF PRESENT ILLNESS: Ms. Webb is a 68-year-old white female with known multiple medical problems and was admitted for her CHF exacerbation. She was also noted to have elevated creatinine. I did review her renal function and creatinine has fluctuated in the past. Of interest, this patient has longstanding history of diabetes mellitus and has proteinuria making chronic renal failure from diabetic nephropathy a possibility. We are now being consulted for further management of this chronic renal failure. REVIEW OF SYSTEMS: Positive for abdominal fullness, occasional leg edema, mild shortness of breath. No nausea. No vomiting. Appetite decreased. No headache. No diplopia. No syncopal episode. No productive cough. No fever or chills. No gross hematuria. No dysuria. No urinary frequency. No hematochezia. No melena. Appetite and energy levels are fair. HOME MEDICATIONS: Included; 1. Lasix 40 mg daily. 2. Lisinopril 5 mg daily. 3. Iron 65 mg twice a day. 4. Zantac 75 mg daily. 5. Paroxetine 45 mg daily. 6. Carvedilol 12.5 mg p.o. b.i.d. 7. Atorvastatin 40 mg tablet at bedtime. 8. Aspirin 81 mg daily. 9. Gabapentin 300 mg p.o. t.i.d. 10. Glipizide 2.5 mg daily. PAST MEDICAL HISTORY: 1. Depression. 2. Chronic renal failure secondary to diabetic nephropathy. 3. Type 2 diabetes mellitus. 4. Status post CHF. 5. Coronary artery disease. 6. Hypertension. 7. Hyperlipidemia. 8. Diabetic neuropathy. 9. History of migraine. PAST SURGICAL HISTORY: Status post cardiac cath, status post CABG, status post left carotid endarterectomy, status post section x2, status post left elbow surgery, status post right foot surgery, status post colonoscopy, status post right foot surgery. SOCIAL HISTORY: The patient lives with her sister in [place]. Three children. She is a retired hairdresser. Education, high school. No history of smoking. No alcohol intake. Status post blood transfusion. ALLERGIES: NONE. TRAUMA: Status post left kneecap fracture, status post left elbow fracture. IMMUNIZATION: Up-to-date. HOSPITALIZATIONS: Please see past medical history. FAMILY HISTORY: No family history of ESRD. PHYSICAL EXAMINATION: VITAL SIGNS: Blood pressure is 176/79, heart rate 77, respiratory rate 20, temperature 98.1, and pulse ox 93%. GENERAL: Awake, alert, supine, comfortable. Decreased hearing. HEENT: She has slightly pale conjunctivae. Anicteric sclerae. NECK: No neck mass. No carotid bruits. No JVD. CHEST: No deformities. LUNGS: Decreased breath sounds. HEART: Normal sinus rhythm. No murmur, no gallops, no rubs. ABDOMEN: Globular, soft, nontender. No masses. EXTREMITIES: Trace edema status post right foot amputation. NEUROLOGICAL: Awake, oriented to 3 spheres. Moving all extremities. No tremors. No asterixis. Decreased hearing. LABORATORY DATA: Laboratories of December 10, 2018; white count 15.7, hemoglobin 9.7. Chemistries of December 10, 2018, show the following; sodium 134, potassium 5.1, chloride 110, carbon dioxide 15, BUN 63, creatinine 2.21, GFR 22 mL/minute, glucose 141, calcium is 8.5, AST 46, ALT 30, albumin 2.8, alkaline phosphatase is 865. CAT scan of the abdomen and pelvis showed no renal obstruction. No renal masses. Borderline splenomegaly. Positive for ascites. Positive for cholelithiasis. Ultrasound of the abdomen shows cholelithiasis with contracted bladder. Moderate volume ascites. No intrahepatic or extrahepatic biliary dilatation. Coarsened hepatic echotexture. ASSESSMENT AND PLAN: 1. Congestive heart failure. Agree with the current diuretic regimen. The patient is currently on furosemide at 40 mg IV q.12. I will probably add albumin infusion to maintain some degree of intravascular volume, to maintain renal perfusion. 2. History of congestive heart failure-the patient has decreased EF. Currently, lisinopril has been decreased to 2.5 mg tablet once a day. 3. Chronic renal failure-this is most likely from underlying diabetic nephropathy. She has a history of diabetes mellitus and proteinuria. 4. Acute kidney injury, consider hemodynamically mediated renal dysfunction. As previously mentioned, start albumin infusion. 5. No indication for any emergent dialysis. Job ID: [id number]
[2018-12-11] MEDS: Albumin 25% 25 GM/100 ML BOT IVPB SCH ×3 (05:36→16:29)
[2018-12-11] MEDS: Furosemide 40 MG/4 ML VIAL SLOW IVP SCH ×2 (06:34→14:17)
[2018-12-11 06:51] LABS: #Eosinphils 0.1 thou/uL (0.0-0.7); #Monocytes 1.3 thou/uL (0.11-0.59); #Neutrophils 11.9 thou/uL (1.40-6.50); %Basophils 0.2 % (0.0-1.0); %Lymphocytes 6.8 % (21.0-51.0); Hemoglobin 9.1 g/dL (12.0-16.0); Mean Corpuscular HGB CONC 30.9 g/dL (32.0-36.0); Mean Corpuscular Hemoglobin 28.7 pg (27.0-31.0); Mean Corpuscular Volume 92.9 fL (78.0-98.0); Mean Platelet Volume 6.8 fL (7.4-10.4); Platelet Count 420 thou/uL (130-400); Red Blood Cell (RBC) Count 3.17 mill/uL (4.20-5.40); White Blood Cell (WBC) Count 14.3 thou/uL (4.8-10.8)
[2018-12-11 07:12] LABS: Albumin 2.9 g/dL (3.4-4.8); Anion Gap 14 mmol/L (10-20); BUN (Urea Nitrogen) 58 mg/dL (9.8-20.1); BUN/Creatinine Ratio 29.15; Calc. Creatinine Clearance 38 mL/min (70-130); Calcium 8.6 mg/dL (7.8-10.44); Carbon Dioxide 16 mmol/L (23-31); Chloride 113 mmol/L (98-107); Estimated GFR-MDRD 25; Glucose 78 mg/dL (80-115); Phosphorus 5.2 mg/dL (2.3-4.7); Potassium 4.7 mmol/L (3.5-5.1); Sodium 138 mmol/L (136-145)
[2018-12-11 07:13] LABS: ALT (SGPT) 22 U/L (8-55); AST (SGOT) 25 U/L (5-34); Albumin 2.9 g/dL (3.4-4.8); Alkaline Phosphatase 654 U/L (40-150); Bilirubin, Direct 0.7 mg/dL (0.1-0.3); Bilirubin, Total 0.9 mg/dL (0.2-1.2)
[2018-12-11] MEDS: Enoxaparin Sodium 30 MG/0.3 ML SYRINGE SC SCH (08:30)
[2018-12-11] MEDS: Gabapentin 300 MG CAP PO SCH ×2 (08:30→19:47)
[2018-12-11] MEDS: Ferrous Sulfate 325 MG TAB PO SCH ×2 (08:30→16:29)
[2018-12-11] MEDS: PARoxetine 20 MG TAB PO SCH (08:30)
[2018-12-11] MEDS: Atorvastatin Calcium 40 MG TAB PO SCH (08:30)
[2018-12-11] MEDS: Aspirin Chewable 81 MG TAB PO SCH (08:30)
[2018-12-11] MEDS: Lisinopril 2.5 MG TAB PO SCH (08:33)
[2018-12-11] MEDS: Carvedilol 6.25 MG TAB PO SCH ×2 (08:33→19:47)
[2018-12-11] MEDS: Sodium Bicarbonate Tab 325 MG TAB PO SCH ×3 (09:29→19:47)
[2018-12-11] MEDS ORDERED: Epoetin (ESRD) 20,000 UNITS/ML SC SCH (09:30)
--- NOTE | 2018-12-11 09:52 | PRG ---
DATE OF SERVICE: 12/11/2018 SUBJECTIVE: Ms. Webb is a 68-year-old white female, who was admitted for her CHF exacerbation. We are following this patient for her chronic renal failure. She may have a superimposed prerenal azotemia. For that reason, the lisinopril has been decreased by the hospitalist to 2.5. In addition, she has also been treated for CHF. She is on Lasix and at the same time started on albumin infusion. She is also being worked up for the possibility of multiple myeloma. No other complaints today. OBJECTIVE: VITAL SIGNS: Blood pressure is 136/55, heart rate 59, respiratory rate is 20, temperature 97.9, and pulse oximetry 93%. GENERAL: Noted to be awake, alert, comfortable, not in distress. SKIN: Adequate turgor. HEENT: She has slightly pale conjunctivae. Anicteric sclerae. NECK: No neck mass. No carotid bruits. No JVD. CHEST: No deformities. LUNGS: Clear breath sounds. HEART: Normal sinus rhythm. No murmurs. No gallops. No rubs. ABDOMEN: Globular, soft, and nontender. No masses. EXTREMITIES: Positive for edema. MEDICATIONS: Medications of December 11, 2018, reviewed. LABORATORY DATA: Laboratories of December 11, 2018; white count 14.3 and hemoglobin 9.1. Sodium 138, potassium 4.7, chloride 113, carbon dioxide 16, BUN 58, creatinine 1.99, glucose 78, phosphorus is 5.2, calcium 8.6, phosphorus 5.2, and albumin 2.9. Alkaline phosphatase 654, AST 25, and ALT 22. ASSESSMENT AND PLAN: 1. Acute kidney injury/chronic renal failure - I suspect a component of prerenal azotemia. Continue gentle diuresis. In addition, currently on IV albumin infusion. 2. Anemia. Consider starting the patient on Epogen and iron supplementation. 3. Elevated alkaline phosphatase - concern for multiple myeloma. Workup is currently being done. 4. Mild congestive heart failure, stable, currently on IV diuresis. 5. Overall agree with current management. We will recheck basic metabolic and CBC in a.m. Job ID: [id number]
--- NOTE | 2018-12-11 10:20 | RAD ---
XR Lumbar Spine 2 Or 3 View: 12/11/2018 5:49 AM CLINICAL INDICATION: Evaluate for lytic lesion, myeloma COMPARISON: None. FINDINGS: No osseous destructive lesion visualized Fracture:No fracture. Arthropathy:None of significance. Incidental findings:None of significance. IMPRESSION: 1. No acute osseous abnormality.
--- NOTE | 2018-12-11 10:23 | RAD ---
XR Skull Min 4 View STANDARD: 12/11/2018 5:49 AM CLINICAL INDICATION: Lytic lesion/myeloma evaluation COMPARISON: None. FINDINGS: Fracture:No fracture. No osseous destructive lesion Incidental findings:Hardware of the right orbital rim. Surgical clips of the neck. IMPRESSION: No lytic, destructive lesion of the calvarium and visualized.
--- NOTE | 2018-12-11 10:25 | RAD ---
XR Thoracic Spine 3 V STANDARD: 12/11/2018 5:49 AM CLINICAL INDICATION: Lytic lesion/myeloma evaluation COMPARISON: None. FINDINGS: Fracture:No fracture. No lytic, destructive lesion identified. Arthropathy:Moderate arthropathy. Incidental findings:Sternotomy wires and surgical clips. Linear parenchymal density of each lung. IMPRESSION: 1. No lytic, destructive osseous lesion visualized.
--- NOTE | 2018-12-11 13:26 | PDOC.PN ---
- Subjective Encounter Start Date: 12/11/18 Encounter Start Time: 12:30 Subjective: breathing better, no chest pain -: feels weak - Objective Resuscitation Status - Order Detail: 12/10/18 18:34 Resuscitation Status Routine Resuscitation Status: FULL: Full Resuscitation Discussed with: POA: sister Ms.Gail Nisreen HAYES Reviewed: Yes Vital Signs & Weight: Vital Signs (12 hours) Temp Pulse Resp BP BP BP Pulse Ox 12/11/18 12:00 97.6 F 67 18 159/76 H 96 12/11/18 08:33 62 136/55 L 12/11/18 08:00 97.7 F 62 18 136/55 L 94 L 12/11/18 04:00 97.9 F 59 L 20 153/81 H 93 L Weight Weight 198 lb 9.6 oz I&O: 12/10/18 12/11/18 12/12/18 06:59 06:59 06:59 Intake Total 360 240 Output Total 250 Balance 110 240 Result Diagrams: 12/11/18 05:55 12/11/18 05:55 Additional Labs: Accuchecks 12/10/18 20:05 POC Glucose 156 H Phys Exam - Physical Examination HEENT: PERRLA, moist MMs Neck: no JVD, supple Respiratory: no wheezing, no rales Cardiovascular: RRR, no significant murmur Gastrointestinal: soft, non-tender, positive bowel sounds Musculoskeletal: no edema, pulses present Neurological: non-focal, moves all 4 limbs chronic 7th nr palsy Psychiatric: normal affect, A&O x 3 Dx/Plan (1) Acute on chronic systolic (congestive) heart failure Code(s): I50.23 - ACUTE ON CHRONIC SYSTOLIC (CONGESTIVE) HEART FAILURE Status : Acute (2) Anxiety and depression Code(s): F41.9 - ANXIETY DISORDER, UNSPECIFIED; F32.9 - MAJOR DEPRESSIVE DISORDER, SINGLE EPISODE, UNSPECIFIED Status: Chronic (3) CAD (coronary artery disease) Code(s): I25.10 - ATHSCL HEART DISEASE OF [place] CORONARY ARTERY W/O ANG PCTRS Status: Chronic Qualifiers: Coronary Disease-Associated Artery/Lesion type: bypass graft [place] vs. transplanted heart: [place] heart Associated angina: without angina Qualified Code(s): I25.810 - Atherosclerosis of coronary artery bypass graft(s) without angina pectoris (4) CKD (chronic kidney disease) stage 4, GFR 15-29 ml/min Code(s): N18.4 - CHRONIC KIDNEY DISEASE, STAGE 4 (SEVERE) Status: Chronic (5) HLD (hyperlipidemia) Code(s): E78.5 - HYPERLIPIDEMIA, UNSPECIFIED Status: Chronic (6) HTN (hypertension) Code(s): I10 - ESSENTIAL (PRIMARY) HYPERTENSION Status: Chronic Qualifiers: Hypertension type: essential hypertension Qualified Code(s): I10 - Essential (primary) hypertension (7) NEFTALI (acute kidney injury) Code(s): N17.9 - ACUTE KIDNEY FAILURE, UNSPECIFIED Status: Acute (8) Hypoalbuminemia Code(s): E88.09 - OTH DISORDERS OF PLASMA-PROTEIN METABOLISM, NEC Status: Acute (9) DM type 2 (diabetes mellitus, type 2) Status: Chronic Qualifiers: Diabetes mellitus joint terminal attack controller insulin use: without mcc use Diabetes mellitus complication status: with kidney complications Diabetes mellitus complication detail: with chronic kidney disease Chronic kidney disease stage : stage 4 (severe) Qualified Code(s): E11.22 - Type 2 diabetes mellitus with diabetic chronic kidney disease; N18.4 - Chronic kidney disease, stage 4 (severe ) (10) Cholelithiasis Code(s): K80.20 - CALCULUS OF GALLBLADDER W/O CHOLECYSTITIS W/O OBSTRUCTION Status: Chronic Qualifiers: Cholelithiasis location: gallbladder Cholecystitis presence: without cholecystitis Biliary obstruction: without biliary obstruction Qualified Code(s): K80.20 - Calculus of gallbladder without cholecystitis without obstruction (11) UTI (urinary tract infection) Status: Acute Qualifiers: Urinary tract infection type: acute cystitis Hematuria presence: without hematuria Qualified Code(s): N30.00 - Acute cystitis without hematuria (12) Metabolic acidosis Code(s): E87.2 - ACIDOSIS Status: Acute Comment: sec to neftali - Plan is on levaquin, await full cultures -: continue lasix iv , asp, lipitor, glipizide -: electrophoresis is pending, r/o myeloma, plain xray no lytic lesions -: has elevated alk phos and ggt as well, normal ast, alt and no dil of cbd -: has anasarca sec to ckd, low albumin levels * . Review of Systems - Medications/Allergies Allergies/Adverse Reactions: Allergies Allergy/AdvReac Type Severity Reaction Status Date / Time No Known Allergies Allergy Verified 12/10/18 21:23 Medications: Current Medications Acetaminophen (Tylenol) 650 mg PO Q4H PRN PRN Reason: Headache/Fever/Mild Pain (1-3) Last Admin: 12/10/18 21:18 Dose: 650 mg Albumin Human (Albumin 25%) 25 gm IVPB Q6H [facility] Stop: 12/11/18 17:01 Last Admin: 12/11/18 12:14 Dose: 25 gm Aspirin (Aspirin Chewable) 81 mg PO DAILY [facility] Last Admin: 12/11/18 08:30 Dose: 81 mg Atorvastatin Calcium (Lipitor) 40 mg PO DAILY [facility] Last Admin: 12/11/18 08:30 Dose: 40 mg Bisacodyl (Dulcolax) 10 mg [place] DAILYPRN PRN PRN Reason: Constipation Carvedilol (Coreg) 6.25 mg PO BID [facility] Last Admin: 12/11/18 08:33 Dose: 6.25 mg Enoxaparin Sodium (Lovenox) 30 mg SC 0900 [facility] Last Admin: 12/11/18 08:30 Dose: 30 mg Epoetin Arnulfo-epbx (Retacrit) 7,500 unit SC Q7D [facility] Ferrous Sulfate (Feosol) 325 mg PO BID-[facility] Last Admin: 12/11/18 08:30 Dose: 325 mg Furosemide (Lasix) 40 mg SLOW IVP 0600,1400 [facility] Last Admin: 12/11/18 06:34 Dose: 40 mg Gabapentin (Neurontin) 300 mg PO BID [facility] Last Admin: 12/11/18 08:30 Dose: 300 mg Glipizide (Glucotrol Xl) 2.5 mg PO QAM-[facility] Last Admin: 12/11/18 08:30 Dose: 2.5 mg Guaifenesin/Dextromethorphan (Robitussin Dm) 15 ml PO Q4H PRN PRN Reason: Cough Levofloxacin 250 mg/ Device 50 mls @ 100 mls/hr IVPB Q24HR [facility] Lisinopril (Zestril) 2.5 mg PO DAILY [facility] Last Admin: 12/11/18 08:33 Dose: 2.5 mg Paroxetine HCl (Paxil) 30 mg PO DAILY [facility] Last Admin: 12/11/18 08:30 Dose: 30 mg Senna/Docusate Sodium (Senokot S) 2 tab PO BID PRN PRN Reason: Constipation Sodium Bicarbonate (Bicarbonate, Sodium) 650 mg PO TID [facility] Last Admin: 12/11/18 09:29 Dose: 650 mg Sodium Chloride (Flush - Normal Saline) 10 ml IVF Q12HR [facility] Last Admin: 12/11/18 08:30 Dose: 10 ml Sodium Chloride (Flush - Normal Saline) 10 ml IVF PRN PRN PRN Reason: Saline Flush
[2018-12-11 16:08] LABS: ANA Symphony (Qualitative) Negative (Negative); ANA Symphony (Quantitative) 0.2 Ratio (< 0.7 Negative); EliA Vaculitis New Method **** NEW METHOD ****; Mitochondrial Ab 0.6 U/mL (<4 Negative); dsDNA IgG Antibody 1.1 IU/mL (<10 Negative)
[2018-12-11] MEDS: EPOETIN ALFA-EPBX (ESRD) 4,000 UNIT/ML VIAL SC SCH (16:29)
--- NOTE | 2018-12-11 19:55 | CON ---
DATE OF CONSULTATION: 12/11/2018 REASON FOR CONSULTATION: Heart failure. PRIMARY AUDIT PARTNER: Len Hernández MD. HISTORY OF PRESENT ILLNESS: Ms. Webb is a very pleasant 68-year-old white female, patient of mine, who comes to the hospital for right upper quadrant abdominal pain. She was woken up by right upper quadrant abdominal pain about 6/10 in intensity, was vomiting, had some diarrhea as well up until today. She came in, and she was found to be in heart failure with lower extremity edema, ascites, and elevated BNP. She also has had an acute kidney injury, likely cardiorenal syndrome. She had IV Lasix given, and she has been urinating a lot more, and her creatinine is already coming down, and she is feeling better already. Multiple imaging studies were done of her abdomen, and they show no acute issues. PAST MEDICAL HISTORY: 1. Coronary artery disease, status post CABG. 2. Systolic EF at 35% to 40% on most recent echo. 3. Ischemic cardiomyopathy. 4. Hyperlipidemia. 5. Facial palsy. 6. Migraine headaches. PAST SURGICAL HISTORY: 1. Left carotid endarterectomy. 2. Hysterectomy. 3. Left elbow surgery. 4. Right forefoot amputation. 5. Blepharoplasty on the right eye for her facial palsy, significant improvement on her eye. 6. CABG x3; LINARES to LAD was patent, vein graft to an OM was patent, and a vein graft to RCA was occluded on a recent heart catheterization. OUTPATIENT MEDICATIONS: 1. Lasix 40 mg a day. 2. Lisinopril 5 mg a day. 3. Iron 65 mg twice a day. 4. Zantac 75 mg a day. 5. Paroxetine 45 mg a day. 6. Carvedilol 12.5 mg b.i.d. 7. Atorvastatin 40 mg a day. 8. Aspirin 81 a day. 9. Glipizide 2.5 a day. 10. Gabapentin 300 mg 3 times a day. ALLERGIES: NO KNOWN DRUG ALLERGIES. SOCIAL HISTORY: No alcohol, tobacco, or drugs. FAMILY HISTORY: Father of an ND at age 62. REVIEW OF SYSTEMS: A 12-point review of systems was done and was all negative unless stated in the history of present illness. PHYSICAL EXAMINATION: VITAL SIGNS: Temperature 97.5, pulse 61, respiratory rate 18, saturating 95% on room air, blood pressure 145/75. GENERAL: Awake, alert, and oriented x3, in no distress. HEENT: Normocephalic and atraumatic. NECK: Supple. LUNGS: Mild crackles at bases. CARDIOVASCULAR: S1 and S2. No S3 or S4. No murmurs. ABDOMEN: Soft. Positive bowel sounds. EXTREMITIES: 1+ edema. SKIN: Warm and dry. LABORATORY DATA: Laboratory work was reviewed. White count of 15, hemoglobin of 9.7, hematocrit of 30, platelet count of 438. Chemistry; creatinine on admission was 2.21, down to 1.9 after IV Lasix. Phosphorus was 5.2. Glucose was fine. Lactic acid was normal. Direct bilirubin of 0.7 with GGT of 130. AST and ALT are normal. Alkaline phosphatase of 654. Albumin of 2.9. TSH was normal. Lipase was high at 127. BNP was 1251. CT of the abdomen and pelvis showed ascites, borderline splenomegaly, and cholelithiasis. Vascular calcifications without aneurysmal dilatation of the abdominal aorta. Degenerative changes present, uterus. Ultrasound of the abdomen; cholelithiasis with contracted gallbladder. No evidence for acute cholecystitis. No intrahepatic or extrahepatic biliary dilatation. Moderate volume ascites. Coarsened hepatic echotexture, which is either acute hepatitis versus congestive heart failure changes. ASSESSMENT: 1. Lkodp-va-lztteki systolic heart failure. 2. Ischemic cardiomyopathy. 3. Acute kidney injury, likely cardiorenal. 4. Abdominal pain, unclear as to reason. 5. Cholelithiasis without cholecystitis. PLAN: 1. Agree with continued diuresis. Already improving creatinine with diuresis. 2. Dr. Berumen on board. IV albumin given. 3. Anemia, thought to be related to chronic disease. 4. I agree with continued IV diuresis for now. 5. IV antibiotics per primary team. Thank you for letting us to participate in the care of your patient. We will continue to follow. Job ID: [id number]
[2018-12-12 04:52] LABS: #Eosinphils 0.2 thou/uL (0.0-0.7); #Lymphocytes 0.7 thou/uL (1.20-3.40); #Monocytes 1.1 thou/uL (0.11-0.59); #Neutrophils 9.9 thou/uL (1.40-6.50); %Basophils 0.4 % (0.0-1.0); %Neutrophils 82.7 % (42.0-75.0); Mean Corpuscular HGB CONC 31.6 g/dL (32.0-36.0); Mean Corpuscular Hemoglobin 29.3 pg (27.0-31.0); Mean Corpuscular Volume 92.6 fL (78.0-98.0); Mean Platelet Volume 6.7 fL (7.4-10.4); Platelet Count 379 thou/uL (130-400); RBC Distribution Width 14.1 % (11.5-14.5); Red Blood Cell (RBC) Count 3.08 mill/uL (4.20-5.40)
[2018-12-12 05:08] LABS: Anion Gap 13 mmol/L (10-20); BUN (Urea Nitrogen) 59 mg/dL (9.8-20.1); Calc. Creatinine Clearance 36 mL/min (70-130); Calcium 8.8 mg/dL (7.8-10.44); Carbon Dioxide 17 mmol/L (23-31); Chloride 112 mmol/L (98-107); Estimated GFR-MDRD 23; Glucose 73 mg/dL (80-115); Potassium 4.6 mmol/L (3.5-5.1); Sodium 137 mmol/L (136-145)
[2018-12-12] MEDS: Furosemide 40 MG/4 ML VIAL SLOW IVP SCH (05:25)
[2018-12-12] MEDS: PARoxetine 20 MG TAB PO SCH (08:16)
[2018-12-12] MEDS: Atorvastatin Calcium 40 MG TAB PO SCH (08:16)
[2018-12-12] MEDS: Sodium Bicarbonate Tab 325 MG TAB PO SCH ×3 (08:18→21:07)
[2018-12-12] MEDS: Lisinopril 2.5 MG TAB PO SCH (08:18)
[2018-12-12] MEDS: Ferrous Sulfate 325 MG TAB PO SCH ×2 (08:18→17:14)
[2018-12-12] MEDS: Aspirin Chewable 81 MG TAB PO SCH (08:18)
[2018-12-12] MEDS: Carvedilol 6.25 MG TAB PO SCH ×2 (08:18→21:08)
[2018-12-12] MEDS: Gabapentin 300 MG CAP PO SCH ×2 (08:18→21:08)
[2018-12-12] MEDS: Enoxaparin Sodium 30 MG/0.3 ML SYRINGE SC SCH (08:19)
--- NOTE | 2018-12-12 09:37 | PRG ---
DATE OF SERVICE: 12/12/2018 SERVICE: Renal Medicine. SUBJECTIVE: Ms. Webb is a 68-year-old white female, who was admitted for CHF. She was also seen for her acute kidney injury on top of her chronic renal failure. Creatinine is now being fluctuating. Currently, on Lasix 40 mg IV q.12. She is also being ruled out for multiple myeloma. So far, the tests are all negative. She does not have any evidence of any lytic lesions. SPEP and UPEP are currently pending. No complaints of chest pain or shortness of breath. OBJECTIVE: VITAL SIGNS: Blood pressure 122/67, heart rate 72, respiratory rate 18, temperature 97.7, and pulse ox 95% on room air. GENERAL: Awake, alert, supine, comfortable, not in distress. SKIN: Adequate turgor. HEENT: Slightly pale conjunctivae. Anicteric sclerae. NECK: No neck mass. No carotid bruits. No JVD. CHEST: No deformities. LUNGS: Clear breath sounds. No wheezing. No crackles. HEART: Normal sinus rhythm. No murmurs, gallops, or rubs. ABDOMEN: Globular, soft, nontender. EXTREMITIES: Trace edema. MEDICATIONS: Medications of December 12, 2018, were reviewed. LABORATORY DATA: Laboratories of December 12, 2018; white count 12, hemoglobin 9. Sodium 137, potassium 4.6, chloride 102, carbon dioxide 17, BUN 59, creatinine 2.1, GFR 23 mL/minute, glucose 73, calcium 8.8. TSH 3.4. ASSESSMENT AND PLAN: 1. Acute kidney injury/chronic renal failure, superimposed hemodynamically-mediated renal dysfunction. Slightly higher creatinine today at 2.1 from 1.99. We will decrease Lasix from 40 IV q.12 to once a day. Still on the low dose lisinopril. We will hold this off if the renal function will further worsen. 2. Congestive heart failure, clinically much improved, currently on a diuretic regimen. Lasix adjusted. 3. Anemia. We have started this patient back on Epogen. Overall, there is no indication for any dialytic intervention. Continue current management. ADDENDUM: After discussion with our hospitalist, we decided to keep the Lasix at 40 mg IV q.12 due to the persistent ascites. In addition, I have decided to add albumin 25 g IV q.6 for another day to enhance the effect of this diuretics. No indication for any dialytic intervention. Job ID: [id number]
[2018-12-12] MEDS: Albumin 25% 25 GM/100 ML BOT IVPB SCH ×2 (11:48→17:15)
--- NOTE | 2018-12-12 13:30 | PDOC.PN ---
- Subjective Encounter Start Date: 12/12/18 Encounter Start Time: 12:40 Subjective: abd pain is better, no nausea, is eating better -: has ambulated with PT in hallway -: no sob - Objective Resuscitation Status - Order Detail: 12/10/18 18:34 Resuscitation Status Routine Resuscitation Status: FULL: Full Resuscitation Discussed with: POA: sister Ms.Gail Nielson MAR Reviewed: Yes Vital Signs & Weight: Vital Signs (12 hours) Temp Pulse Resp BP BP Pulse Ox 12/12/18 08:18 72 122/67 12/12/18 08:00 97.7 F 72 18 122/67 95 Weight Admit Weight 198 lb 9.6 oz Weight 192 lb 9.6 oz I&O: 12/11/18 12/12/18 12/13/18 06:59 06:59 06:59 Intake Total 360 1575 240 Output Total 250 300 Balance 110 1275 240 Result Diagrams: 12/12/18 04:25 12/12/18 04:25 Phys Exam - Physical Examination HEENT: PERRLA, moist MMs Neck: no JVD, supple Respiratory: no wheezing, no rales Cardiovascular: RRR, no significant murmur Gastrointestinal: soft, no distention, positive bowel sounds Musculoskeletal: no edema, pulses present Neurological: non-focal, moves all 4 limbs Psychiatric: normal affect, A&O x 3 Dx/Plan (1) Acute on chronic systolic (congestive) heart failure Code(s): I50.23 - ACUTE ON CHRONIC SYSTOLIC (CONGESTIVE) HEART FAILURE Status : Acute (2) Anxiety and depression Code(s): F41.9 - ANXIETY DISORDER, UNSPECIFIED; F32.9 - MAJOR DEPRESSIVE DISORDER, SINGLE EPISODE, UNSPECIFIED Status: Chronic (3) CAD (coronary artery disease) Code(s): I25.10 - ATHSCL HEART DISEASE OF [place] CORONARY ARTERY W/O ANG PCTRS Status: Chronic Qualifiers: Coronary Disease-Associated Artery/Lesion type: bypass graft [place] vs. transplanted heart: [place] heart Associated angina: without angina Qualified Code(s): I25.810 - Atherosclerosis of coronary artery bypass graft(s) without angina pectoris (4) CKD (chronic kidney disease) stage 4, GFR 15-29 ml/min Code(s): N18.4 - CHRONIC KIDNEY DISEASE, STAGE 4 (SEVERE) Status: Chronic (5) HLD (hyperlipidemia) Code(s): E78.5 - HYPERLIPIDEMIA, UNSPECIFIED Status: Chronic (6) HTN (hypertension) Code(s): I10 - ESSENTIAL (PRIMARY) HYPERTENSION Status: Chronic Qualifiers: Hypertension type: essential hypertension Qualified Code(s): I10 - Essential (primary) hypertension (7) NEFTALI (acute kidney injury) Code(s): N17.9 - ACUTE KIDNEY FAILURE, UNSPECIFIED Status: Acute (8) Hypoalbuminemia Code(s): E88.09 - OTH DISORDERS OF PLASMA-PROTEIN METABOLISM, NEC Status: Acute (9) DM type 2 (diabetes mellitus, type 2) Status: Chronic Qualifiers: Diabetes mellitus termite helper insulin use: without termite helper use Diabetes mellitus complication status: with kidney complications Diabetes mellitus complication detail: with chronic kidney disease Chronic kidney disease stage : stage 4 (severe) Qualified Code(s): E11.22 - Type 2 diabetes mellitus with diabetic chronic kidney disease; N18.4 - Chronic kidney disease, stage 4 (severe ) (10) Cholelithiasis Code(s): K80.20 - CALCULUS OF GALLBLADDER W/O CHOLECYSTITIS W/O OBSTRUCTION Status: Chronic Qualifiers: Cholelithiasis location: gallbladder Cholecystitis presence: without cholecystitis Biliary obstruction: without biliary obstruction Qualified Code(s): K80.20 - Calculus of gallbladder without cholecystitis without obstruction (11) UTI (urinary tract infection) Status: Acute Qualifiers: Urinary tract infection type: acute cystitis Hematuria presence: without hematuria Qualified Code(s): N30.00 - Acute cystitis without hematuria (12) Metabolic acidosis Code(s): E87.2 - ACIDOSIS Status: Acute Comment: sec to neftali - Plan renal function holding up with gentle diuresis, is getting alb infusions -: alk phos and ggt are elevated, unclear etiology, await spep/upep -: carmen, antimitochondrial ab is -ve -: has cholelithiasis with no evidence of cholecystitis -: dc plan will be to swing bed * . continue asp, lipitor, coreg, lisinopril, glipizide May dc levaquin in am Multiple plain xrays have not revealed any lytic lesions May obtain bone alk phos if spep/upep is -ve Pt counselled to be more active on bed/oob to chair and mobilize more. Review of Systems - Medications/Allergies Allergies/Adverse Reactions: Allergies Allergy/AdvReac Type Severity Reaction Status Date / Time No Known Allergies Allergy Verified 12/10/18 21:23 Medications: Current Medications Acetaminophen (Tylenol) 650 mg PO Q4H PRN PRN Reason: Headache/Fever/Mild Pain (1-3) Last Admin: 12/10/18 21:18 Dose: 650 mg Albumin Human (Albumin 25%) 25 gm IVPB Q6HR [facility] Stop: 12/13/18 06:01 Last Admin: 12/12/18 11:48 Dose: 25 gm Aspirin (Aspirin Chewable) 81 mg PO DAILY [facility] Last Admin: 12/12/18 08:18 Dose: 81 mg Atorvastatin Calcium (Lipitor) 40 mg PO DAILY [facility] Last Admin: 12/12/18 08:16 Dose: 40 mg Bisacodyl (Dulcolax) 10 mg [place] DAILYPRN PRN PRN Reason: Constipation Carvedilol (Coreg) 6.25 mg PO BID [facility] Last Admin: 12/12/18 08:18 Dose: 6.25 mg Enoxaparin Sodium (Lovenox) 30 mg SC 0900 [facility] Last Admin: 12/12/18 08:19 Dose: 30 mg Epoetin Arnulfo-epbx (Retacrit) 7,500 unit SC Q7D [facility] Last Admin: 12/11/18 16:29 Dose: 7,500 unit Ferrous Sulfate (Feosol) 325 mg PO BID-[facility] Last Admin: 12/12/18 08:18 Dose: 325 mg Furosemide (Lasix) 40 mg SLOW IVP 0600,1400 [facility] Gabapentin (Neurontin) 300 mg PO BID [facility] Last Admin: 12/12/18 08:18 Dose: 300 mg Glipizide (Glucotrol Xl) 2.5 mg PO QAM-[facility] Last Admin: 12/12/18 08:15 Dose: 2.5 mg Guaifenesin/Dextromethorphan (Robitussin Dm) 15 ml PO Q4H PRN PRN Reason: Cough Levofloxacin 250 mg/ Device 50 mls @ 100 mls/hr IVPB Q24HR [facility] Last Admin: 12/11/18 14:17 Dose: 50 mls Lisinopril (Zestril) 2.5 mg PO DAILY [facility] Last Admin: 12/12/18 08:18 Dose: 2.5 mg Paroxetine HCl (Paxil) 30 mg PO DAILY [facility] Last Admin: 12/12/18 08:16 Dose: 30 mg Senna/Docusate Sodium (Senokot S) 2 tab PO BID PRN PRN Reason: Constipation Sodium Bicarbonate (Bicarbonate, Sodium) 650 mg PO TID [facility] Last Admin: 12/12/18 08:18 Dose: 650 mg Sodium Chloride (Flush - Normal Saline) 10 ml IVF Q12HR [facility] Last Admin: 12/12/18 08:19 Dose: 10 ml Sodium Chloride (Flush - Normal Saline) 10 ml IVF PRN PRN PRN Reason: Saline Flush
[2018-12-12] MEDS ORDERED: Furosemide 40 MG/4 ML VIAL SLOW IVP SCH (14:00)
[2018-12-12] MEDS: Acetaminophen 325 MG TAB PO PRN ×2 (17:16→21:14)
--- NOTE | 2018-12-12 18:56 | PDOC.CTH ---
Cardiology Progress Note - Subjective Doing better. Seems more euvolemic. Not requiring supplemental O2 anymore. - Objective Vital Signs Temp Pulse Resp BP BP Pulse Ox 12/12/18 16:00 97.7 F 70 16 130/77 92 L 12/12/18 08:18 72 122/67 12/12/18 08:00 97.7 F 72 18 122/67 95 Admit Weight 198 lb 9.6 oz Weight 192 lb 9.6 oz 12/11/18 12/12/18 12/13/18 06:59 06:59 06:59 Intake Total 360 1575 1810 Output Total 250 300 Balance 110 1275 1810 - Physical Examination General/Neuro: alert & oriented x3, NAD Neck: no JVD present Lungs: CTA, unlabored respirations Heart: RRR Abdomen: NT/ND Extremities: + edema B (1+) - Telemetry Telemetry Rhythm: NSR - Labs Result Diagrams: 12/12/18 04:25 12/12/18 04:25 Troponin/CKMB Troponin I 0.018 ng/mL (< 0.028) 12/10/18 14:39 - Assessment/Plan 1. Acute on chronic systolic heart failure. 2. LVEF at 35-40% on most recent echo 3. Hx of CABG 4. NEFTALI on CKD. 5. Diarrhea 6. Cholelithiasis without cholecystitis. PLAN; - Would cut back on IV lasix. - Would switch to PO dose tomorrow.
[2018-12-13] MEDS: Albumin 25% 25 GM/100 ML BOT IVPB SCH ×2 (00:26→05:50)
[2018-12-13 06:19] LABS: #Eosinphils 0.2 thou/uL (0.0-0.7); #Lymphocytes 0.9 thou/uL (1.20-3.40); #Monocytes 1.2 thou/uL (0.11-0.59); #Neutrophils 8.7 thou/uL (1.40-6.50); %Basophils 0.1 % (0.0-1.0); %Eosinophils 2.2 % (0.0-10.0); %Lymphocytes 8.3 % (21.0-51.0); %Monocytes 10.9 % (0.0-10.0); %Neutrophils 78.5 % (42.0-75.0); Mean Corpuscular HGB CONC 31.6 g/dL (32.0-36.0); Mean Corpuscular Hemoglobin 28.7 pg (27.0-31.0); Mean Corpuscular Volume 90.9 fL (78.0-98.0); Mean Platelet Volume 6.9 fL (7.4-10.4); Platelet Count 345 thou/uL (130-400); Red Blood Cell (RBC) Count 2.79 mill/uL (4.20-5.40); White Blood Cell (WBC) Count 11.1 thou/uL (4.8-10.8)
[2018-12-13 06:39] LABS: Anion Gap 12 mmol/L (10-20); BUN (Urea Nitrogen) 62 mg/dL (9.8-20.1); Calc. Creatinine Clearance 30 mL/min (70-130); Calcium 8.4 mg/dL (7.8-10.44); Carbon Dioxide 18 mmol/L (23-31); Chloride 109 mmol/L (98-107); Estimated GFR-MDRD 19; Glucose 87 mg/dL (80-115); Potassium 4.3 mmol/L (3.5-5.1); Sodium 135 mmol/L (136-145)
[2018-12-13] MEDS ORDERED: Furosemide 40 MG TAB PO SCH (07:30)
[2018-12-13] MEDS: PARoxetine 20 MG TAB PO SCH (08:32)
[2018-12-13] MEDS: Gabapentin 300 MG CAP PO SCH ×2 (08:32→19:48)
[2018-12-13] MEDS: Ferrous Sulfate 325 MG TAB PO SCH ×2 (08:34→17:51)
[2018-12-13] MEDS: Sodium Bicarbonate Tab 325 MG TAB PO SCH ×3 (08:34→19:47)
[2018-12-13] MEDS: Atorvastatin Calcium 40 MG TAB PO SCH (08:35)
[2018-12-13] MEDS: Aspirin Chewable 81 MG TAB PO SCH (08:35)
[2018-12-13] MEDS: Lisinopril 2.5 MG TAB PO SCH (08:38)
[2018-12-13] MEDS: Carvedilol 6.25 MG TAB PO SCH ×2 (08:39→19:47)
[2018-12-13] MEDS: Enoxaparin Sodium 30 MG/0.3 ML SYRINGE SC SCH (08:42)
[2018-12-13] MEDS: Acetaminophen 325 MG TAB PO PRN ×3 (08:44→21:49)
[2018-12-13] MEDS ORDERED: Furosemide 40 MG/4 ML VIAL SLOW IVP SCH (09:00)
--- NOTE | 2018-12-13 10:21 | PRG ---
DATE OF SERVICE: 12/13/2018 SUBJECTIVE: Ms. Webb is a 68-year-old white female, who was seen for her acute kidney injury/chronic renal failure. She has underlying diabetic nephropathy. Creatinine has worsen today. She is currently on lisinopril and furosemide and this will be discontinued temporarily. No new complaints. No chest pain or shortness of breath. OBJECTIVE: VITAL SIGNS: Blood pressure 135/61, heart rate 62, respiratory rate 20, temperature 98, and pulse ox 92%. GENERAL: Awake, alert, and comfortable, not in overt distress. SKIN: Adequate turgor. HEENT: She has slightly pale conjunctivae. Anicteric sclerae. NECK: No neck mass. No carotid bruits. No JVD. CHEST: No deformities. LUNGS: Clear. Decreased breath sounds. HEART: Normal sinus rhythm. No murmur. No gallops. No rubs. ABDOMEN: Globular, soft, and nontender. EXTREMITIES: Trace edema. MEDICATIONS: Medications of December 13, 2018, reviewed. LABORATORY DATA: Laboratories of December 13, 2018; sodium 135, potassium 4.3, chloride 109, carbon dioxide 18, BUN 62, creatinine 2.53, and calcium 8.4. White count 11.1 and hemoglobin 8. ASSESSMENT AND PLAN: 1. Acute kidney injury/chronic renal failure, worsening renal dysfunction. We will temporarily hold off Lasix and lisinopril. Continue current management. No indication for any dialytic intervention. 2. Anemia, currently on weekly Epogen. P.R.N. blood transfusion. 3. Ascites - most likely from underlying heart failure. 4. Recheck basic metabolic and CBC in a.m. Job ID: [id number]
--- NOTE | 2018-12-13 12:18 | PDOC.PN ---
- Subjective Encounter Start Date: 12/13/18 Encounter Start Time: 12:16 was seen today in follow-up of RUQ pain. She does not have any new complaints. She tells me she continues to have RUQ discomfort. She denies dyspnea. - Objective Resuscitation Status - Order Detail: 12/10/18 18:34 Resuscitation Status Routine Resuscitation Status: FULL: Full Resuscitation Discussed with: POA: sister Ms.Gail Nisreen HAYES Reviewed: Yes Vital Signs & Weight: Vital Signs (12 hours) Temp Pulse Resp BP BP BP Pulse Ox 12/13/18 08:39 135/61 12/13/18 08:38 62 135/61 12/13/18 08:00 98.2 F 63 20 135/61 94 L 12/13/18 04:00 98.0 F 62 20 119/72 92 L Weight Admit Weight 198 lb 9.6 oz Weight 197 lb 8 oz I&O: 12/12/18 12/13/18 12/14/18 06:59 06:59 06:59 Intake Total 1575 2009 Output Total 300 Balance 1275 2009 Result Diagrams: 12/13/18 05:25 12/13/18 05:25 Phys Exam - Physical Examination HEENT: PERRLA Respiratory: no wheezing, no rales, no rhonchi, clear to auscultation bilateral Cardiovascular: RRR, no significant murmur, no rub Gastrointestinal: soft, positive bowel sounds + Right upper quadrant tenderness no rebound or guarding Musculoskeletal: pulses present, edema present Dx/Plan (1) RUQ abdominal pain Code(s): R10.11 - RIGHT UPPER QUADRANT PAIN Status: Acute (2) Abnormal liver function test Code(s): R94.5 - ABNORMAL RESULTS OF LIVER FUNCTION STUDIES Status: Acute (3) DM type 2 (diabetes mellitus, type 2) Status: Chronic Qualifiers: Diabetes mellitus chcf insulin use: without truck terminal manager use Diabetes mellitus complication status: with kidney complications Diabetes mellitus complication detail: with chronic kidney disease Chronic kidney disease stage : stage 4 (severe) Qualified Code(s): E11.22 - Type 2 diabetes mellitus with diabetic chronic kidney disease; N18.4 - Chronic kidney disease, stage 4 (severe ) (4) Acute on chronic systolic (congestive) heart failure Code(s): I50.23 - ACUTE ON CHRONIC SYSTOLIC (CONGESTIVE) HEART FAILURE Status : Acute (5) HLD (hyperlipidemia) Code(s): E78.5 - HYPERLIPIDEMIA, UNSPECIFIED Status: Chronic (6) HTN (hypertension) Code(s): I10 - ESSENTIAL (PRIMARY) HYPERTENSION Status: Chronic Qualifiers: Hypertension type: essential hypertension Qualified Code(s): I10 - Essential (primary) hypertension (7) Normocytic anemia Code(s): D64.9 - ANEMIA, UNSPECIFIED Status: Acute - Plan * Acute on chronic systolic heart failure- improved with diureses * Acute on chronic kidney diseaselikely from diuretic use- she has been transitioned to oral Lasix- will monitor the effect * Elevated Alk phos, as well as G-GGT.- umclear if she may have some underlying liver disease, in addition to passive congestion, will consult GI * Anemia- likely from chronic kidney disease- but will also check iron studies, as well * HTN- blood pressure is stable * DM- blood glucose is stable
[2018-12-13 13:14] LABS: Reticulocyte Count 1.6 % (0.5-1.5)
[2018-12-13 19:08] LABS: A/G Ratio 0.5 (0.7-1.7); Albumin 2.3 g/dL (2.9-4.4); Alpha 1 0.4 g/dL (0.0-0.4); Beta 1.2 g/dL (0.7-1.3); Gamma 1.9 g/dL (0.4-1.8); Globulin, Total 4.5 g/dL (2.2-3.9); M-Spike Not Observed g/dL (Not Observed); Protein Electrophoresis Intrp Note: (.)
--- NOTE | 2018-12-14 02:28 | CON ---
DATE OF CONSULTATION: 12/13/2018 CHIEF COMPLAINT: Abdominal pain. HISTORY OF PRESENT ILLNESS: Ms. Webb is a 68-year-old woman with a history of ischemic cardiomyopathy and congestive heart failure, who was admitted on 12/10/2018 with right upper quadrant abdominal pain. She states that she has had some diarrhea after meals for the last few weeks, but this has resolved over the last 3 days. She had no blood in the stool. She did have nausea and vomiting once few days ago. She developed abdominal swelling and distention and pain in the right upper quadrant epigastric region, but had since after the 1st day of admission resolved and now she has tenderness more towards the right and left flanks. She has had no prior known liver problems. GI was consulted to evaluate elevated alkaline phosphatase as well. She was found to have stones by abdominal ultrasound, but no biliary duct dilation. No signs of cholecystitis. She has had some burning epigastric discomfort that radiates up toward her chest that she has attributed to reflux. PAST MEDICAL HISTORY: Coronary artery disease, ischemic cardiomyopathy with an EF of 35%, mitral valve calcification. PAST SURGICAL HISTORY: Coronary artery bypass graft, carotid endarterectomy, hysterectomy, elbow surgery, foot amputation. She states that she had a colonoscopy many years ago. FAMILY HISTORY: Negative for GI malignancy. SOCIAL HISTORY: She is a former smoker. No drugs or alcohol. ALLERGIES: NO KNOWN DRUG ALLERGIES. MEDICATION: Include: 1. Aspirin. 2. Atorvastatin. 3. Carvedilol. 4. Enoxaparin. 5. Ferrous sulfate. 6. Epoetin. 7. Gabapentin. 8. Levofloxacin. 9. Paroxetine. REVIEW OF SYSTEMS: Negative x10 systems reviewed except as stated in history of present illness. PHYSICAL EXAMINATION: VITAL SIGNS: Temperature 98.2, pulse 62, blood pressure 135/61. GENERAL: She is in no acute distress. She has right facial droop, which is chronic. HEENT: Her eyes have no scleral icterus. Oropharynx is clear without lesions. NECK: No cervical or supraclavicular lymphadenopathy. LUNGS: Clear to auscultation bilaterally. HEART: Regular rate and rhythm without murmur. ABDOMEN: Soft. Mild tenderness in the lateral abdomen bilaterally. She is nontender in the epigastric and right upper quadrant now. Bowel sounds are present. EXTREMITIES: Trace lower extremity edema. LABORATORY DATA: White blood cell count 11.1, hemoglobin 8.0, platelets 345. INR 1.0, creatinine 2.53. Ferritin 137, TIBC 220, iron back in 2018 was 34, bilirubin 0.9, GGT 130, AST 25, ALT 22, alkaline phosphatase 654. Alkaline phosphatase has been elevated since March 2018, but has increased gradually. Her acute viral hepatitis panel is negative. Her mitochondrial antibody is negative. Smooth muscle antibody is negative. SHILPI is negative. INR is 1.0 and platelets are 345. IMAGING: Ultrasound of the abdomen shows cholelithiasis with no signs of cholecystitis. She has a 4 mm common bile duct. Moderate ascites was noted. CT scan of the abdomen and pelvis again shows moderate ascites. IMPRESSION: 1. Congestive hepatopathy. This is presenting with elevated alkaline phosphatase. Her GGT is mildly elevated as well. Alkaline phosphatase can be fractionated to make sure there is not a significant bony contribution. Overall, I think this is due to congestive hepatopathy. 2. Ascites. This again is likely secondary to congestive hepatopathy. The primary treatment is optimization of the cardiac output and medication and limitation of salt intake. 3. Abdominal pain. This is most likely secondary to the ascites. This could be from distention of Paulie's capsule from the hepatic congestion. It would be reasonable to perform a paracentesis to rule out spontaneous bacterial peritonitis and to evaluate the serum-ascites albumin gradient and total protein, if the studies are consistent with cardiac source for the ascites. IMPRESSION: Anemia consistent with anemia of chronic disease and chronic kidney disease. RECOMMENDATIONS: 1. Fractionate alkaline phosphatase. 2. I will request ultrasound-guided paracentesis for diagnosis with cell count with differential and fluid albumin and fluid total protein. 3. Primary treatment is optimization of the cardiac medications and cardiac outputs. 4. I will add a proton pump inhibitor since she has had burning upper abdominal pain that radiates up to her chest recently. 5. She did have some intermittent diarrhea over the last few weeks, but this has been doing better lately. If her diarrhea starts back, then check stool for Clostridium difficile and culture. She has not been taking significant amount of dairy lately or change in that. Further evaluation of the diarrhea can be performed, if the diarrhea again worsens. Job ID: [id number]
[2018-12-14] MEDS: Acetaminophen 325 MG TAB PO PRN ×3 (02:43→20:32)
[2018-12-14 05:10] LABS: Kappa/Lambda Ratio 4.69 (2.04-10.37)
[2018-12-14] MEDS: Carvedilol 6.25 MG TAB PO SCH ×2 (06:27→20:33)
[2018-12-14 07:02] LABS: #Eosinphils 0.3 thou/uL (0.0-0.7); #Lymphocytes 0.8 thou/uL (1.20-3.40); #Monocytes 1.1 thou/uL (0.11-0.59); #Neutrophils 8.5 thou/uL (1.40-6.50); %Basophils 0.3 % (0.0-1.0); %Eosinophils 2.4 % (0.0-10.0); %Lymphocytes 7.3 % (21.0-51.0); %Monocytes 10.6 % (0.0-10.0); %Neutrophils 79.4 % (42.0-75.0); Hemoglobin 8.8 g/dL (12.0-16.0); Mean Corpuscular HGB CONC 31.2 g/dL (32.0-36.0); Mean Corpuscular Hemoglobin 28.7 pg (27.0-31.0); Mean Corpuscular Volume 92.2 fL (78.0-98.0); Platelet Count 372 thou/uL (130-400); RBC Distribution Width 13.9 % (11.5-14.5); Red Blood Cell (RBC) Count 3.05 mill/uL (4.20-5.40); White Blood Cell (WBC) Count 10.7 thou/uL (4.8-10.8)
[2018-12-14 07:20] LABS: Anion Gap 13 mmol/L (10-20); BUN (Urea Nitrogen) 65 mg/dL (9.8-20.1); Calc. Creatinine Clearance 30 mL/min (70-130); Calcium 8.4 mg/dL (7.8-10.44); Carbon Dioxide 18 mmol/L (23-31); Chloride 108 mmol/L (98-107); Estimated GFR-MDRD 19; Glucose 84 mg/dL (80-115); Potassium 4.3 mmol/L (3.5-5.1); Sodium 135 mmol/L (136-145)
[2018-12-14 07:23] LABS: ALT (SGPT) 30 U/L (8-55); AST (SGOT) 60 U/L (5-34); Albumin 3.3 g/dL (3.4-4.8); Alkaline Phosphatase 625 U/L (40-150); Bilirubin, Direct 0.7 mg/dL (0.1-0.3); Protein, Total 6.6 g/dL (6.0-8.3)
[2018-12-14 08:06] LABS: INR-International Normal Ratio 1.2; PTT 46.5 SEC (22.9-36.1); Prothrombin Time 15.2 SEC (12.0-14.7)
[2018-12-14] MEDS: Aspirin Chewable 81 MG TAB PO SCH (10:52)
[2018-12-14] MEDS: Enoxaparin Sodium 30 MG/0.3 ML SYRINGE SC SCH (10:52)
[2018-12-14] MEDS ORDERED: Sodium Bicarbonate 2.5 MEQ/5 ML VIAL ONE (11:49)
--- NOTE | 2018-12-14 12:23 | PRG ---
DATE OF SERVICE: 12/14/2018 SUBJECTIVE: Ms. Webb is a 68-year-old white female, seen for her acute kidney injury on top of her chronic renal failure. The patient's creatinine has worsened in the last few days, where her creatinine has gone up to a value of 2.53. At that time, we have decided to discontinue her TALAT inhibitor as well as the furosemide. This morning, there is some stabilization of the renal function. She has also had been evaluated yesterday by Gastroenterology due to the abdominal pain/ascites she has been having. Recommendation to have an ultrasound-guided paracentesis was ordered. The patient denies any chest pain or shortness of breath. OBJECTIVE: VITAL SIGNS: Blood pressure is 134/77, heart rate 63, respiratory rate 18, temperature 97.8, and pulse ox 93%. GENERAL: The patient is noted to be awake, alert, comfortable, not in distress. SKIN: Adequate turgor. HEENT AND NECK: She has slightly pale conjunctivae. Anicteric sclerae. No neck mass. No carotid bruits. No JVD. CHEST: No deformities. LUNGS: Clear breath sounds. HEART: Normal sinus rhythm. No murmurs, gallops, or rubs. ABDOMEN: Globular, soft, nontender. Positive for ascites. EXTREMITIES: Trace edema. MEDICATIONS: Medications on 12/14/2018 were reviewed. LABORATORY DATA: Laboratories on 12/14/2018; white count 10.7, hemoglobin 8.8. Sodium 135, potassium 4.3, chloride 108, carbon dioxide 18, BUN 65, creatinine 2.54, alkaline phosphatase 625. Albumin 3.3. ASSESSMENT AND PLAN: 1. Acute kidney injury/chronic renal failure superimposed hemodynamically-mediated renal dysfunction on top of her chronic renal failure. Creatinine seems to be plateauing. She is off TALAT inhibitors as well as diuretics. No indication for any dialytic intervention with this patient. 2. Ascites - GI has been consulted and a planned diagnostic paracentesis is being considered. 3. Anemia, continuing weekly Epogen, p.r.n. blood transfusion. Continue current management. There is no indication for any dialytic intervention. Job ID: [id number]
--- NOTE | 2018-12-14 13:11 | PDOC.PN ---
- Subjective Encounter Start Date: 12/14/18 Encounter Start Time: 13:09 Ms. Webb was seen today in follow-up of Right upper quandrant pain, and dyspnea. She says today she feels much better. She says the abdominal pain has completely gone away. She denies any trouble with breathing, and would like to go to the nursing facility as soon as possible to get settled in. - Objective Resuscitation Status - Order Detail: 12/10/18 18:34 Resuscitation Status Routine Resuscitation Status: FULL: Full Resuscitation Discussed with: POA: sister Ms.Gail Nisreen HAYES Reviewed: Yes Vital Signs & Weight: Vital Signs (12 hours) Temp Pulse Resp BP BP Pulse Ox 12/14/18 08:00 93 L 12/14/18 07:40 97.8 F 63 18 134/77 93 L 12/14/18 06:27 148/70 H 12/14/18 04:50 98 F 65 18 148/70 H 93 L Weight Admit Weight 198 lb 9.6 oz Weight 199 lb 3 oz I&O: 12/13/18 12/14/18 12/15/18 06:59 06:59 06:59 Intake Total 2009 1300 Balance 2009 1300 Result Diagrams: 12/14/18 06:38 12/14/18 06:38 Phys Exam - Physical Examination HEENT: PERRLA Respiratory: no wheezing, no rales, no rhonchi, clear to auscultation bilateral Cardiovascular: RRR, no significant murmur, no rub Gastrointestinal: soft Musculoskeletal: no edema, pulses present Dx/Plan (1) RUQ abdominal pain Code(s): R10.11 - RIGHT UPPER QUADRANT PAIN Status: Acute (2) Abnormal liver function test Code(s): R94.5 - ABNORMAL RESULTS OF LIVER FUNCTION STUDIES Status: Acute (3) DM type 2 (diabetes mellitus, type 2) Status: Chronic Qualifiers: Diabetes mellitus intermediate insulin use: without intermediate use Diabetes mellitus complication status: with kidney complications Diabetes mellitus complication detail: with chronic kidney disease Chronic kidney disease stage : stage 4 (severe) Qualified Code(s): E11.22 - Type 2 diabetes mellitus with diabetic chronic kidney disease; N18.4 - Chronic kidney disease, stage 4 (severe ) (4) Acute on chronic systolic (congestive) heart failure Code(s): I50.23 - ACUTE ON CHRONIC SYSTOLIC (CONGESTIVE) HEART FAILURE Status : Acute (5) HLD (hyperlipidemia) Code(s): E78.5 - HYPERLIPIDEMIA, UNSPECIFIED Status: Chronic (6) HTN (hypertension) Code(s): I10 - ESSENTIAL (PRIMARY) HYPERTENSION Status: Chronic Qualifiers: Hypertension type: essential hypertension Qualified Code(s): I10 - Essential (primary) hypertension (7) Normocytic anemia Code(s): D64.9 - ANEMIA, UNSPECIFIED Status: Acute - Plan * RUQ pain- resolved- likely from passive congestion * GI input was appreciated- plan for US guided paracentesis today * Anemia- likely a combination of anemia of renal disease, and iron deficiency- continue Epogen, and iron supplementation * SPEP -UPEP results noted- likely non-specific, and related to hypoalbuminemia. * Acute on chronic systolic heart failure- better compensated * Likely to [facility] after paracentesis and depending on results
--- NOTE | 2018-12-14 13:31 | ULT ---
US Paracentesis with Imaging HISTORY: Chronic renal failure. Elevated white blood cell count. Diagnostic paracentesis was requeste d. COMPARISON: CT examination of 12/10/2018. FINDINGS: After informed consent was obtained the patient was prepped and draped in normal sterile fa shion. Largest pocket of fluid was within the left lower quadrant. Local anesthesia obtained with 1% Xylocaine mixed with sodium bicarbonate. A 22-gauge spinal needle was inserted under ultrasound gu idance without difficulty and 24 cc of typical straw-colored ascites was obtained. There are no immediate complications of the procedure. IMPRESSION: Successful ultrasound-guided diagnostic paracentesis.
[2018-12-14] MEDS: Sodium Bicarbonate Tab 325 MG TAB PO SCH ×3 (14:15→20:32)
[2018-12-14] MEDS: Atorvastatin Calcium 40 MG TAB PO SCH (14:15)
[2018-12-14] MEDS: Ferrous Sulfate 325 MG TAB PO SCH ×2 (14:16→16:09)
[2018-12-14] MEDS: Gabapentin 300 MG CAP PO SCH ×2 (14:16→20:32)
[2018-12-14] MEDS: PARoxetine 20 MG TAB PO SCH (14:17)
[2018-12-14 14:28] LABS: Ref Lab Test Ordered ALK PHOS BONE SPECIF; Reference Lab Name LABCORP
[2018-12-14 15:17] LABS: BF Color Yellow; Body Fluid Source Ascites Body Fluid; Clarity Hazy (Clear); Tube # EDTA; WBC Background Count 0.01; WBC/NonHematic-Auto 959 /cumm
[2018-12-14 15:18] LABS: BF RBC Count - Manual 3050 /cumm
[2018-12-14 15:23] LABS: BF Segmented Neutrophils 53 %; Cell Count Non Hematic 34 %; Lymphocytes 13 %
--- NOTE | 2018-12-14 16:21 | EKG ---
Test Reason : Blood Pressure : / mmHG Vent. Rate : 076 BPM Atrial Rate : 076 BPM P-R Int : 218 ms QRS Dur : 088 ms QT Int : 400 ms P-R-T Axes : 038 028 110 degrees QTc Int : 450 ms Sinus rhythm with 1st degree A-V block Possible Anterior infarct , age undetermined T wave abnormality, consider lateral ischemia Abnormal ECG Confirmed by JANUSZ REYNOSO, RAMON ([id number]), editor city [place] WILKINSON ([id number]) on 12/14/2018 4:21:08 PM Referred By: Confirmed By:RAMON BOUDREAUX MD
[2018-12-14] MEDS ORDERED: cefTRIAXone\\ROCEPHIN 2 GM in Sodium Chloride 0.9% 100 ML IVPB SCH (17:00)
--- NOTE | 2018-12-14 17:12 | PRG ---
DATE OF SERVICE: 12/14/2018 SUBJECTIVE: She really has no significant abdominal pain today. She is tolerating a solid diet. OBJECTIVE: VITAL SIGNS: Temperature 97.8, pulse 63, blood pressure 134/77. GENERAL: She is in no acute distress. Alert and oriented x3. LUNGS: Clear to auscultation bilaterally. HEART: Regular rate and rhythm without murmur. ABDOMEN: Soft, nontender, nondistended. Bowel sounds are present. EXTREMITIES: No lower extremity edema. IMPRESSION: 1. Congestive hepatopathy. 2. Ascites secondary to congestive hepatopathy. 3. Spontaneous bacterial peritonitis. Fluid study show a white blood cell count in the fluid of 959 with 53% neutrophils. With correction of the red blood cells, the absolute neutrophil count in the fluid is well over 250. I will await culture; however, cultures rarely positive in spontaneous bacterial peritonitis. In the meantime, I will transition her from levofloxacin to ceftriaxone and we would want to complete a 5-day course of antibiotics including the days of levofloxacin that she has had. Job ID: [id number]
[2018-12-15] MEDS: Acetaminophen 325 MG TAB PO PRN ×3 (06:31→20:40)
[2018-12-15 06:50] LABS: #Eosinphils 0.2 thou/uL (0.0-0.7); #Monocytes 1.2 thou/uL (0.11-0.59); %Basophils 0.1 % (0.0-1.0); %Eosinophils 2.1 % (0.0-10.0); %Lymphocytes 8.6 % (21.0-51.0); %Monocytes 10.6 % (0.0-10.0); %Neutrophils 78.6 % (42.0-75.0); Hemoglobin 9.6 g/dL (12.0-16.0); Mean Corpuscular HGB CONC 31.3 g/dL (32.0-36.0); Mean Corpuscular Hemoglobin 28.8 pg (27.0-31.0); Mean Corpuscular Volume 91.9 fL (78.0-98.0); Mean Platelet Volume 6.7 fL (7.4-10.4); Platelet Count 430 thou/uL (130-400); Red Blood Cell (RBC) Count 3.35 mill/uL (4.20-5.40); White Blood Cell (WBC) Count 11.5 thou/uL (4.8-10.8)
[2018-12-15 07:17] LABS: Anion Gap 13 mmol/L (10-20); BUN (Urea Nitrogen) 63 mg/dL (9.8-20.1); Calc. Creatinine Clearance 31 mL/min (70-130); Calcium 8.7 mg/dL (7.8-10.44); Carbon Dioxide 18 mmol/L (23-31); Chloride 109 mmol/L (98-107); Estimated GFR-MDRD 19; Glucose 120 mg/dL (80-115); Potassium 4.5 mmol/L (3.5-5.1); Sodium 135 mmol/L (136-145)
[2018-12-15] MEDS: Sodium Bicarbonate Tab 325 MG TAB PO SCH ×3 (08:40→20:39)
[2018-12-15] MEDS: Carvedilol 6.25 MG TAB PO SCH ×2 (08:41→20:40)
[2018-12-15] MEDS: Gabapentin 300 MG CAP PO SCH ×2 (08:41→20:40)
[2018-12-15] MEDS: Atorvastatin Calcium 40 MG TAB PO SCH (08:42)
[2018-12-15] MEDS: PARoxetine 20 MG TAB PO SCH (08:42)
[2018-12-15] MEDS: Ferrous Sulfate 325 MG TAB PO SCH (08:43)
[2018-12-15] MEDS: Enoxaparin Sodium 30 MG/0.3 ML SYRINGE SC SCH (08:43)
[2018-12-15] MEDS: Aspirin Chewable 81 MG TAB PO SCH (08:43)
--- NOTE | 2018-12-15 10:49 | PRG ---
DATE OF SERVICE: 12/15/2018 SUBJECTIVE: Ms. Webb is a 68-year-old white female followed up by the Renal Service for her acute kidney injury/chronic renal failure. In the interim, she was evaluated by GI for the ascites. She underwent diagnostic paracentesis. Finding is suggestive of ascites from congestive lever. In addition, there was finding with spontaneous peritonitis. Currently, receiving IV antibiotics. No new complaints today. No chest pain. No abdominal pain. No shortness of breath. OBJECTIVE: VITAL SIGNS: Blood pressure 148/76, heart rate 63, respiratory rate 18, temperature 98, and pulse ox 95%. GENERAL: Awake, alert, comfortable, not in distress. SKIN: Adequate turgor. HEENT: Pinkish conjunctivae. Anicteric sclerae. NECK: No neck mass. No carotid bruits. No JVD. CHEST: No deformities. LUNGS: Clear breath sounds. HEART: Normal sinus rhythm. No murmurs, gallops, or rubs. ABDOMEN: Globular, soft, and nontender. No masses. EXTREMITIES: No edema. No deformities. MEDICATIONS: Medications of December 15, 2018, were reviewed. LABORATORY DATA: Laboratories of December 15, 2018; sodium 135, potassium 3.5, chloride 109, carbon dioxide 18, BUN 63, creatinine 2.52, glucose 120, and calcium 8.7. ASSESSMENT AND PLAN: 1. Chronic anemia-currently on weekly Epogen. 2. Acute kidney injury/chronic renal failure-superimposed hemodynamically mediated renal dysfunction. As previously mentioned, renal function is stable. No indication for any dialytic intervention. 3. Ascites. Gastroenterology following-most likely from passive liver congestion. Overall agree with current management. Job ID: [id number]
[2018-12-15] MEDS ORDERED: Saccharomyces boulardii 250 MG CAP PO SCH (13:30)
--- NOTE | 2018-12-15 13:37 | PRG ---
DATE OF SERVICE: 12/15/2018 SUBJECTIVE: Ms. Webb has no significant abdominal pain today. No nausea or vomiting. She does report an episode of diarrhea today, but just one time. OBJECTIVE: VITAL SIGNS: Temperature 98.0, blood pressure 148/76, pulse 63. GENERAL: She is in no acute distress. Alert and oriented x3. LUNGS: Clear to auscultation bilaterally. HEART: Regular rate and rhythm without murmur. ABDOMEN: Soft, nontender, minimally distended. Bowel sounds are present. EXTREMITIES: Trace lower extremity edema. LABORATORY DATA: White blood cell count 11.5, hemoglobin 9.6, platelets 430. INR 1.2. IMPRESSION: 1. Ascites secondary to congestive hepatopathy. 2. Spontaneous bacterial peritonitis. She did have micrococcus in her blood culture on presentation. It is unclear if this is contaminant or the actual source for her sepsis syndrome and the SBP. Overall, she has responded well to fluoroquinolone. She did receive a dose of ceftriaxone yesterday, but given her significant improvement with the fluoroquinolone and there should be penetration of the peritoneal fluid with the fluoroquinolone. I would think that she could finish 1 more day of the antibiotic, given her marked improvement, 1 more day tomorrow and then potentially discontinue antibiotics at that point and possibly discharge home. She continues to tolerate her diet well and has responded well to treatment. I will discontinue the ceftriaxone for now. 3. Diarrhea. She had 1 episode of diarrhea today. She did have a stool sample sent that was positive for Clostridium difficile antigen and negative for the toxin. Given the mild diarrhea, we will follow this clinically. However, if the diarrhea significantly worsens again, then we can treat her with a course of oral vancomycin 125 mg four times daily for 14 days. For now, we will just treat with probiotics. RECOMMENDATIONS: 1. Stop ceftriaxone. 2. Continue fluoroquinolone. 3. Low-salt diet. 4. Possibly discharge home tomorrow. 5. Add Florastor daily. Job ID: [id number]
--- NOTE | 2018-12-15 15:39 | PDOC.PN ---
- Subjective Encounter Start Date: 12/15/18 Encounter Start Time: 15:33 Ms. Webb was seen today in follow-up of abdominal pain. She says she no longer has any complaints of pain. She is anxious to be moved to [place]. - Objective Resuscitation Status - Order Detail: 12/10/18 18:34 Resuscitation Status Routine Resuscitation Status: FULL: Full Resuscitation Discussed with: POA: sister Ms.Gail Nisreen HAYES Reviewed: Yes Vital Signs & Weight: Vital Signs (12 hours) Temp Pulse Resp BP BP Pulse Ox 12/15/18 08:41 148/76 H 12/15/18 08:00 98.0 F 63 18 148/76 H 95 Weight Admit Weight 198 lb 9.6 oz Weight 200 lb I&O: 12/14/18 12/15/18 12/16/18 06:59 06:59 06:59 Intake Total 1300 1500 Balance 1300 1500 Result Diagrams: 12/15/18 06:36 12/15/18 06:36 Additional Labs: Accuchecks 12/14/18 19:33 POC Glucose 125 H Phys Exam - Physical Examination HEENT: PERRLA Respiratory: no wheezing, no rales, no rhonchi, clear to auscultation bilateral Cardiovascular: RRR, no significant murmur, no rub Gastrointestinal: soft, non-tender, no distention, positive bowel sounds Musculoskeletal: no edema + partial amputation of the right foot Neurological: non-focal, normal sensation Dx/Plan (1) Spontaneous bacterial peritonitis Code(s): K65.2 - SPONTANEOUS BACTERIAL PERITONITIS Status: Acute (2) RUQ abdominal pain Code(s): R10.11 - RIGHT UPPER QUADRANT PAIN Status: Acute (3) Abnormal liver function test Code(s): R94.5 - ABNORMAL RESULTS OF LIVER FUNCTION STUDIES Status: Acute (4) DM type 2 (diabetes mellitus, type 2) Status: Chronic Qualifiers: Diabetes mellitus terminal operations supervisor insulin use: without penitentiary use Diabetes mellitus complication status: with kidney complications Diabetes mellitus complication detail: with chronic kidney disease Chronic kidney disease stage : stage 4 (severe) Qualified Code(s): E11.22 - Type 2 diabetes mellitus with diabetic chronic kidney disease; N18.4 - Chronic kidney disease, stage 4 (severe ) (5) Acute on chronic systolic (congestive) heart failure Code(s): I50.23 - ACUTE ON CHRONIC SYSTOLIC (CONGESTIVE) HEART FAILURE Status : Acute (6) HLD (hyperlipidemia) Code(s): E78.5 - HYPERLIPIDEMIA, UNSPECIFIED Status: Chronic (7) HTN (hypertension) Code(s): I10 - ESSENTIAL (PRIMARY) HYPERTENSION Status: Chronic Qualifiers: Hypertension type: essential hypertension Qualified Code(s): I10 - Essential (primary) hypertension (8) Normocytic anemia Code(s): D64.9 - ANEMIA, UNSPECIFIED Status: Acute - Plan * Spontaneous Bacterial Peritonitis- discussed with Dr.l Magallanes. she will need a total of 5 days antibiotic treatment. This can be completed with Levaquin, last dose tomorrow * DM- blood glucose is stable * Acute on chronic systolic heart failure- compensated * HTN- blood pressure is stable. * awaiting placement
[2018-12-16] MEDS: Acetaminophen 325 MG TAB PO PRN ×2 (02:41→10:46)
--- NOTE | 2018-12-16 07:38 | CON ---
DATE OF CONSULTATION: I am seeing Ms. Webb in Dr. Hernández's absence. SUBJECTIVE: Ms. Webb is stable. No current complaints. She states she continues to diurese. No chest pain or pressure noted. Lower extremity edema has improved. OBJECTIVE: VITAL SIGNS: Blood pressure 135/61, pulse 60, temperature afebrile. LUNGS: Clear to auscultation. HEART: Regular rate and rhythm. ABDOMEN: Soft, nontender, nondistended. EXTREMITIES: 1+ pitting edema. PERTINENT LABORATORY DATA: Hemoglobin 8.0, creatinine 2.53, which is up from 2.1. IMPRESSION: 1. [id number] systolic heart failure. 2. Coronary artery disease. 3. Status post bypass surgery. 4. Wzpef-yn-mcxpapo renal insufficiency. RECOMMENDATIONS: 1. Lasix has been changed to p.o. dosing, but then discontinued after increase in the creatinine. 2. Continue beta-santino therapy, atorvastatin, and aspirin. 3. Avoid TALAT inhibitor therapy and ARB due to worsening renal function. 4. Ms. Webb appears euvolemic. Continue to monitor closely. Job ID: [id number]
[2018-12-16] MEDS: PARoxetine 20 MG TAB PO SCH (08:10)
[2018-12-16] MEDS: Enoxaparin Sodium 30 MG/0.3 ML SYRINGE SC SCH (08:10)
[2018-12-16] MEDS: Saccharomyces boulardii 250 MG CAP PO SCH (08:11)
[2018-12-16] MEDS: Carvedilol 6.25 MG TAB PO SCH ×2 (08:11→20:41)
[2018-12-16] MEDS: Atorvastatin Calcium 40 MG TAB PO SCH (08:11)
[2018-12-16] MEDS: Gabapentin 300 MG CAP PO SCH ×2 (08:11→20:41)
[2018-12-16] MEDS: Sodium Bicarbonate Tab 325 MG TAB PO SCH ×3 (08:11→20:41)
[2018-12-16] MEDS: Aspirin Chewable 81 MG TAB PO SCH (08:11)
--- NOTE | 2018-12-16 10:26 | PRG ---
DATE OF SERVICE: 12/16/2018 SUBJECTIVE: Ms. Webb is a 68-year-old white female, followed up for acute kidney injury/chronic renal failure. Renal function has remained stable. She is off her diuretics and TALAT inhibitors. She also underwent diagnostic paracentesis. She was found to have a spontaneous bacterial endocarditis and currently on antibiotics. GI is currently following. The feeling is that ascites secondary to passive hepatic congestion. No other complaints. The patient denies any chest pain or shortness of breath. She also has had diarrhea that was positive for a C. diff. IV ceftriaxone has been discontinued and she is being treated with oral vancomycin. OBJECTIVE: VITAL SIGNS: Blood pressure is 143/64, heart rate is 61, respiratory rate is 16, temperature is 98, and pulse ox is 94%. GENERAL: Noted to be awake, alert, supine, and comfortable. SKIN: Adequate turgor. HEENT: Pinkish conjunctivae. Anicteric sclerae. NECK: No neck mass. No carotid bruits. No JVD. CHEST: No deformities. LUNGS: Clear breath sounds. No wheezing. No crackles. HEART: Normal sinus rhythm. No murmur. No gallops. No rubs. ABDOMEN: Globular, soft, and nontender. No masses. EXTREMITIES: No edema. MEDICATIONS: Medications of December 16, 2018, were reviewed. LABORATORY DATA: Laboratories of December 15, 2018, white count 11.5 and hemoglobin 9.6. December 15, 2018; BUN 63, creatinine 2.52, and potassium 4.5. ASSESSMENT AND PLAN: 1. Chronic renal failure/acute kidney injury. Stable renal function. Recheck basic metabolic tomorrow. Continue to hold off diuretics and angiotensin-converting enzyme inhibitors. 2. Diarrhea - ? of Clostridium difficile colitis. Gastroenterology following. If positive for Clostridium difficile colitis, recommendation is on oral vancomycin at 125 mg p.o. q.i.d. 3. Anemia. Continuing weekly Epogen. Overall agree with current management. Job ID: [id number]
--- NOTE | 2018-12-16 12:15 | PRG ---
DATE OF SERVICE: 12/16/2018 SUBJECTIVE: Ms. Webb had runny stools last night 1 episode, 1 episode this morning, and then 1 episode yesterday afternoon. She has no abdominal pain. She is tolerating her diet well. OBJECTIVE: VITAL SIGNS: Temperature 98, blood pressure 143/64, and pulse 61. GENERAL: She is in no acute distress. Alert and oriented x3. LUNGS: Clear to auscultation bilaterally. HEART: Regular rate and rhythm without murmur. ABDOMEN: Soft, nontender, and nondistended. Bowel sounds are present. EXTREMITIES: No lower extremity edema. IMPRESSION: 1. Spontaneous bacterial peritonitis symptomatically improved with antibiotics. She should complete that course today. 2. Ascites secondary to congestive hepatopathy. 3. Diarrhea. Her stool was positive for Clostridium difficile antigen, but negative for the toxin. Given that she has had multiple different antibiotics here in the hospital now and is having diarrhea, I will follow through with treatment of the Clostridium difficile with oral vancomycin. RECOMMENDATIONS: 1. Low-salt diet. 2. Vancomycin 125 mg 4 times daily orally. 3. I will sign off for now. Please call if GI can be of assistance. Job ID: [id number]
[2018-12-16] MEDS: Vancomycin HCl 25 MG/ML Oral PO SCH ×3 (14:19→23:42)
[2018-12-16 15:45] VITALS: BMI 31.7
--- NOTE | 2018-12-16 17:59 | PDOC.PN ---
- Subjective Encounter Start Date: 12/16/18 Encounter Start Time: 13:00 Ms. Webb was seen today in follow-up of SBP, and CHF exacerbation. She does not have any complaints. She says the abdominal pain has resolved. She had some diarrhea last night. - Objective Resuscitation Status - Order Detail: 12/10/18 18:34 Resuscitation Status Routine Resuscitation Status: FULL: Full Resuscitation Discussed with: POA: sister Ms.Gail Nisreen HAYES Reviewed: Yes Vital Signs & Weight: Vital Signs (12 hours) Temp Pulse Resp BP BP Pulse Ox 12/16/18 08:11 143/64 H 12/16/18 08:00 94 L 12/16/18 07:48 98.0 F 61 16 143/64 H Weight Admit Weight 198 lb 9.6 oz Weight 202 lb 12.8 oz I&O: 12/15/18 12/16/18 12/17/18 06:59 06:59 06:59 Intake Total 1500 1490 300 Balance 1500 1490 300 Result Diagrams: 12/15/18 06:36 12/15/18 06:36 Phys Exam - Physical Examination HEENT: PERRLA + rales at both bases Cardiovascular: RRR, no significant murmur, no rub Gastrointestinal: soft, non-tender, no distention, positive bowel sounds Musculoskeletal: pulses present, edema present + trace pedal edema + right facial droop Dx/Plan (1) Spontaneous bacterial peritonitis Code(s): K65.2 - SPONTANEOUS BACTERIAL PERITONITIS Status: Acute (2) RUQ abdominal pain Code(s): R10.11 - RIGHT UPPER QUADRANT PAIN Status: Acute (3) Abnormal liver function test Code(s): R94.5 - ABNORMAL RESULTS OF LIVER FUNCTION STUDIES Status: Acute (4) DM type 2 (diabetes mellitus, type 2) Status: Chronic Qualifiers: Diabetes mellitus termite exterminator insulin use: without termite exterminator use Diabetes mellitus complication status: with kidney complications Diabetes mellitus complication detail: with chronic kidney disease Chronic kidney disease stage : stage 4 (severe) Qualified Code(s): E11.22 - Type 2 diabetes mellitus with diabetic chronic kidney disease; N18.4 - Chronic kidney disease, stage 4 (severe ) (5) Acute on chronic systolic (congestive) heart failure Code(s): I50.23 - ACUTE ON CHRONIC SYSTOLIC (CONGESTIVE) HEART FAILURE Status : Acute (6) HLD (hyperlipidemia) Code(s): E78.5 - HYPERLIPIDEMIA, UNSPECIFIED Status: Chronic (7) HTN (hypertension) Code(s): I10 - ESSENTIAL (PRIMARY) HYPERTENSION Status: Chronic Qualifiers: Hypertension type: essential hypertension Qualified Code(s): I10 - Essential (primary) hypertension (8) Normocytic anemia Code(s): D64.9 - ANEMIA, UNSPECIFIED Status: Acute - Plan * SBP- she will receive her final day of Levaquin today * C. Diff- she had diarrhea last night- therefore oral Vancomycin has been started. She will need contact isolation * HTN- blood pressure is stable * DM- blood glucose is stable. * Awaiting placement
[2018-12-16 18:09] LABS: Albumin-Ur 51.2 % (.); Alpha 1 - Ur 1.2 % (.); Alpha 2 - Ur 4.9 % (.); Beta-Ur 16.7 % (.); M-Spike,% Not Observed % (Not Observed); Protein, Urine 69.3 mg/dL (Not Estab.)
[2018-12-16] MEDS: HYDROcodone/Acetaminophen 10/325 mg Tablet PO PRN (21:20)
[2018-12-16 21:45] LABS: #Basophils 0.1 thou/uL (0.0-0.2); #Eosinphils 0.3 thou/uL (0.0-0.7); #Lymphocytes 0.9 thou/uL (1.20-3.40); #Monocytes 1.3 thou/uL (0.11-0.59); #Neutrophils 9.2 thou/uL (1.40-6.50); %Basophils 0.4 % (0.0-1.0); %Eosinophils 2.7 % (0.0-10.0); %Lymphocytes 7.8 % (21.0-51.0); %Monocytes 11.3 % (0.0-10.0); %Neutrophils 77.8 % (42.0-75.0); Hemoglobin 9.8 g/dL (12.0-16.0); Mean Corpuscular HGB CONC 31.7 g/dL (32.0-36.0); Mean Corpuscular Hemoglobin 28.8 pg (27.0-31.0); Mean Corpuscular Volume 90.8 fL (78.0-98.0); Mean Platelet Volume 6.7 fL (7.4-10.4); Platelet Count 440 thou/uL (130-400); RBC Distribution Width 13.9 % (11.5-14.5); Red Blood Cell (RBC) Count 3.41 mill/uL (4.20-5.40); White Blood Cell (WBC) Count 11.9 thou/uL (4.8-10.8)
[2018-12-16 22:04] LABS: ALT (SGPT) 30 U/L (8-55); AST (SGOT) 56 U/L (5-34); Albumin 3.2 g/dL (3.4-4.8); Alkaline Phosphatase 696 U/L (40-150); Anion Gap 12 mmol/L (10-20); BUN (Urea Nitrogen) 55 mg/dL (9.8-20.1); Bilirubin, Total 0.8 mg/dL (0.2-1.2); Calc. Creatinine Clearance 36 mL/min (70-130); Calcium 8.8 mg/dL (7.8-10.44); Carbon Dioxide 22 mmol/L (23-31); Chloride 106 mmol/L (98-107); Estimated GFR-MDRD 22; Globulin 3.8 g/dL (2.4-3.5); Glucose 105 mg/dL (80-115); Potassium 4.4 mmol/L (3.5-5.1); Sodium 136 mmol/L (136-145)
[2018-12-17] MEDS: Vancomycin HCl 25 MG/ML Oral PO SCH ×4 (05:16→23:48)
[2018-12-17 06:39] LABS: #Eosinphils 0.3 thou/uL (0.0-0.7); #Lymphocytes 0.9 thou/uL (1.20-3.40); #Monocytes 1.3 thou/uL (0.11-0.59); #Neutrophils 8.6 thou/uL (1.40-6.50); %Basophils 0.3 % (0.0-1.0); %Eosinophils 2.9 % (0.0-10.0); %Lymphocytes 8.1 % (21.0-51.0); %Monocytes 11.7 % (0.0-10.0); Hemoglobin 9.4 g/dL (12.0-16.0); Mean Corpuscular HGB CONC 31.5 g/dL (32.0-36.0); Mean Corpuscular Hemoglobin 28.6 pg (27.0-31.0); Mean Corpuscular Volume 90.9 fL (78.0-98.0); Mean Platelet Volume 6.9 fL (7.4-10.4); Platelet Count 405 thou/uL (130-400); White Blood Cell (WBC) Count 11.2 thou/uL (4.8-10.8)
[2018-12-17 06:49] LABS: Anion Gap 11 mmol/L (10-20); BUN (Urea Nitrogen) 55 mg/dL (9.8-20.1); Calc. Creatinine Clearance 38 mL/min (70-130); Calcium 8.8 mg/dL (7.8-10.44); Carbon Dioxide 20 mmol/L (23-31); Chloride 110 mmol/L (98-107); Estimated GFR-MDRD 24; Glucose 92 mg/dL (80-115); Potassium 4.4 mmol/L (3.5-5.1); Sodium 137 mmol/L (136-145)
[2018-12-17] MEDS: PARoxetine 20 MG TAB PO SCH (08:21)
[2018-12-17] MEDS: Sodium Bicarbonate Tab 325 MG TAB PO SCH ×3 (08:21→20:45)
[2018-12-17] MEDS: Gabapentin 300 MG CAP PO SCH ×2 (08:22→20:45)
[2018-12-17] MEDS: Saccharomyces boulardii 250 MG CAP PO SCH (08:22)
[2018-12-17] MEDS: Atorvastatin Calcium 40 MG TAB PO SCH (08:22)
[2018-12-17] MEDS: Carvedilol 6.25 MG TAB PO SCH ×2 (08:22→20:45)
[2018-12-17] MEDS: Aspirin Chewable 81 MG TAB PO SCH (08:22)
[2018-12-17] MEDS: Enoxaparin Sodium 30 MG/0.3 ML SYRINGE SC SCH (08:23)
--- NOTE | 2018-12-17 10:26 | PRG ---
DATE OF SERVICE: 12/17/2018 SUBJECTIVE: Ms. Webb is a 68-year-old white female, seen by the Renal Service for her acute kidney injury on top of her chronic renal failure. Her diuretics and TALAT inhibitors have been placed on hold. Creatinine is now noted to be stabilizing and improving. No new complaints today. The patient denies any chest pain or shortness of breath. The patient has had also spontaneous bacterial peritonitis. She has received diagnostic paracentesis and GI is following. She has also been noted to be anemic and currently on Epogen. She has also been started on p.o. vancomycin for the C. diff colitis. OBJECTIVE: VITAL SIGNS: Blood pressure 163/79, heart rate 69, respiratory rate 18, temperature 98.1, and pulse ox 92%. GENERAL: Awake, alert, supine, comfortable, not in distress. SKIN: Adequate turgor. HEENT: Slightly pale conjunctivae. Anicteric sclerae. NECK: No neck mass. No carotid bruits. No JVD. CHEST: No deformities. LUNGS: Clear breath sounds. No wheezing. No crackles. HEART: Normal sinus rhythm. No murmurs. No gallops. No rubs. ABDOMEN: Globular, soft, and nontender. EXTREMITIES: No edema. MEDICATIONS: Medications of December 17, 2018, reviewed. LABORATORY DATA: Laboratories of December 17, 2018, white count 11.2 and hemoglobin 9.4. Sodium 137, potassium 4.4, chloride 110, carbon dioxide 20, BUN 55, creatinine 2.06, glucose 92, and calcium 8.8. ASSESSMENT AND PLAN: 1. Acute kidney injury/chronic renal failure, superimposed prerenal azotemia on top of her chronic renal failure. Creatinine is much improved at 2.06 from a peak of 2.54. Continuing to hold diuretics and angiotensin-converting enzyme inhibitors. No indication for any dialytic intervention. 2. Anemia, on weekly Epogen. 3. Clostridium difficile colitis. Currently, on oral vancomycin. Overall, agree with current management. Recheck CBC and basic metabolic in a.m. Job ID: [id number]
--- NOTE | 2018-12-17 15:18 | PDOC.HOSPP ---
- Subjective Subjective: Ms. Webb was seen today in follow-up of SBP, and CHF. She does not have any complaints today. She denies abdominal pain, and shortness of breath. - Objective Vital Signs & Weight: Vital Signs (12 hours) Temp Pulse Resp BP BP Pulse Ox 12/17/18 08:24 98.1 F 69 18 163/79 H 92 L 12/17/18 08:23 92 L 12/17/18 08:22 163/79 H 12/17/18 03:39 157/74 H Weight Admit Weight 198 lb 9.6 oz Weight 204 lb 4.8 oz I&O: 12/16/18 12/17/18 12/18/18 06:59 06:59 06:59 Intake Total 1490 550 Balance 1490 550 Result Diagrams: 12/17/18 05:49 12/17/18 05:49 ROS - Review of Systems All systems: All other ROS were reviewed and found negative. - Medication Medications: Active Medications Generic Name Dose Route Start Last Admin Trade Name Freq PRN Reason Stop Dose Admin Acetaminophen 650 mg 12/10/18 18:38 12/16/18 10:46 Tylenol PO 650 mg Q4H PRN Administration Headache/Fever/Mild Pain (1-3) Hydrocodone Bitart/Acetaminophen 1 tab 12/16/18 20:58 12/16/18 21:20 [place] 10/325 PO 1 tab Q4H PRN Administration Moderate Pain (4-6) Aspirin 81 mg 12/11/18 09:00 12/17/18 08:22 Aspirin Chewable PO 81 mg DAILY TAMMY Administration Atorvastatin Calcium 40 mg 12/11/18 09:00 12/17/18 08:22 Lipitor PO 40 mg DAILY TAMMY Administration Carvedilol 6.25 mg 12/10/18 21:00 12/17/18 08:22 Coreg PO 6.25 mg BID TAMMY Administration Enoxaparin Sodium 30 mg 12/11/18 09:00 12/17/18 08:23 Lovenox SC 30 mg 0900 TAMMY Administration Epoetin Arnulfo-epbx 7,500 unit 12/11/18 12:00 12/11/18 16:29 Retacrit SC 7,500 unit Q7D TAMMY Administration Gabapentin 300 mg 12/10/18 21:00 12/17/18 08:22 Neurontin PO 300 mg BID TAMMY Administration Glipizide 2.5 mg 12/11/18 08:00 12/17/18 08:21 Glucotrol Xl PO 2.5 mg QAM-WM TAMMY Administration Paroxetine HCl 30 mg 12/11/18 09:00 12/17/18 08:21 Paxil PO 30 mg DAILY TAMMY Administration Saccharomyces Boulardii 250 mg 12/16/18 09:00 12/17/18 08:22 Florastor PO 250 mg DAILY TAMMY Administration Sodium Bicarbonate 650 mg 12/11/18 09:00 12/17/18 14:45 Bicarbonate, Sodium PO 650 mg TID TAMMY Administration Sodium Chloride 10 ml 12/10/18 21:00 12/17/18 08:24 Flush - Normal Saline IVF 10 ml Q12HR TAMMY Administration Vancomycin HCl 125 mg 12/16/18 12:00 12/17/18 11:56 First Vancomycin PO 125 mg Q6HR TAMMY Administration - Exam Eye: PERRL, anicteric sclera Heart: RRR, no murmur, no gallops, no rubs, normal peripheral pulses Respiratory: CTAB, no wheezes, no ronchi, rales (+ rales bilaterally) Gastrointestinal: soft, non-tender, non-distended, normal bowel sounds, no palpable masses, no hepatomegaly Extremities: no cyanosis, no clubbing, 1+ LE edema Neurological: facial droop Hosp A/P (1) Spontaneous bacterial peritonitis Code(s): K65.2 - SPONTANEOUS BACTERIAL PERITONITIS Status: Acute (2) RUQ abdominal pain Code(s): R10.11 - RIGHT UPPER QUADRANT PAIN Status: Acute (3) Abnormal liver function test Code(s): R94.5 - ABNORMAL RESULTS OF LIVER FUNCTION STUDIES Status: Acute (4) DM type 2 (diabetes mellitus, type 2) Status: Chronic Qualifiers: Diabetes mellitus alf insulin use: without alf use Diabetes mellitus complication status: with kidney complications Diabetes mellitus complication detail: with chronic kidney disease Chronic kidney disease stage : stage 4 (severe) Qualified Code(s): E11.22 - Type 2 diabetes mellitus with diabetic chronic kidney disease; N18.4 - Chronic kidney disease, stage 4 (severe ) (5) Acute on chronic systolic (congestive) heart failure Code(s): I50.23 - ACUTE ON CHRONIC SYSTOLIC (CONGESTIVE) HEART FAILURE Status : Acute (6) HLD (hyperlipidemia) Code(s): E78.5 - HYPERLIPIDEMIA, UNSPECIFIED Status: Chronic (7) HTN (hypertension) Code(s): I10 - ESSENTIAL (PRIMARY) HYPERTENSION Status: Chronic Qualifiers: Hypertension type: essential hypertension Qualified Code(s): I10 - Essential (primary) hypertension (8) Normocytic anemia Code(s): D64.9 - ANEMIA, UNSPECIFIED Status: Acute - Plan * SBP- she has completed 5 days of antibiotic therapyand symptomatically she is improved * CHF- chronic systolic heart failure- she has some rales on exam- but she is not symptomatic. Lasix is on hold due to NEFTALI. Continue to monitor closely * HTN- blood pressure is beginning to creep up. Will observe- may need to titrate medications * DM- blood glucose is stable * Acute on Chronic kidney injury- improving
--- NOTE | 2018-12-17 17:14 | PDOC.CTH ---
Cardiology Progress Note - Subjective No new issues. Still having diarrhea but better overall. No new issues. - Objective Vital Signs Temp Pulse Resp BP BP Pulse Ox 12/17/18 08:24 98.1 F 69 18 163/79 H 92 L 12/17/18 08:23 92 L 12/17/18 08:22 163/79 H Admit Weight 198 lb 9.6 oz Weight 204 lb 4.8 oz 12/16/18 12/17/18 12/18/18 06:59 06:59 06:59 Intake Total 1490 550 Balance 1490 550 - Physical Examination General/Neuro: alert & oriented x3, NAD Neck: no JVD present Lungs: CTA, unlabored respirations Heart: RRR Abdomen: NT/ND Extremities: other: (no edema) - Labs Result Diagrams: 12/17/18 05:49 12/17/18 05:49 Troponin/CKMB Troponin I 0.018 ng/mL (< 0.028) 12/10/18 14:39 - Assessment/Plan 1. Acute on chronic systolic heart failure. 2. LVEF at 35-40% on most recent echo 3. Hx of CABG 4. NEFTALI on CKD. 5. Diarrhea 6. Cholelithiasis without cholecystitis. 7. C-DIff colitis. PLAN; - Continue to hold lasix until diarrhea resolved and then restart home dose. - CV stable - Placement. - Will sign off, please call with any questions. - Follow up in 6-8 wks.
[2018-12-17] MEDS: HYDROcodone/Acetaminophen 10/325 mg Tablet PO PRN (21:24)
[2018-12-18] MEDS: Vancomycin HCl 25 MG/ML Oral PO SCH ×2 (06:03→12:42)
[2018-12-18 06:36] LABS: #Basophils 0.1 thou/uL (0.0-0.2); #Eosinphils 0.3 thou/uL (0.0-0.7); #Lymphocytes 1.1 thou/uL (1.20-3.40); #Monocytes 1.4 thou/uL (0.11-0.59); #Neutrophils 7.7 thou/uL (1.40-6.50); %Basophils 0.5 % (0.0-1.0); %Eosinophils 3.1 % (0.0-10.0); %Lymphocytes 10.7 % (21.0-51.0); %Monocytes 12.7 % (0.0-10.0); %Neutrophils 72.9 % (42.0-75.0); Hemoglobin 9.2 g/dL (12.0-16.0); Mean Corpuscular HGB CONC 30.9 g/dL (32.0-36.0); Mean Corpuscular Hemoglobin 28.3 pg (27.0-31.0); Mean Corpuscular Volume 91.6 fL (78.0-98.0); Mean Platelet Volume 6.6 fL (7.4-10.4); Platelet Count 409 thou/uL (130-400); Red Blood Cell (RBC) Count 3.24 mill/uL (4.20-5.40); White Blood Cell (WBC) Count 10.6 thou/uL (4.8-10.8)
[2018-12-18 06:55] LABS: Anion Gap 12 mmol/L (10-20); BUN (Urea Nitrogen) 52 mg/dL (9.8-20.1); Calc. Creatinine Clearance 40 mL/min (70-130); Carbon Dioxide 21 mmol/L (23-31); Chloride 109 mmol/L (98-107); Estimated GFR-MDRD 25; Glucose 99 mg/dL (80-115); Potassium 4.4 mmol/L (3.5-5.1); Sodium 138 mmol/L (136-145)
[2018-12-18 08:57] VITALS: TEMP 98.1
[2018-12-18] MEDS: Enoxaparin Sodium 30 MG/0.3 ML SYRINGE SC SCH (09:06)
[2018-12-18] MEDS: PARoxetine 20 MG TAB PO SCH (09:07)
[2018-12-18] MEDS: Sodium Bicarbonate Tab 325 MG TAB PO SCH (09:07)
[2018-12-18] MEDS: Atorvastatin Calcium 40 MG TAB PO SCH (09:09)
[2018-12-18] MEDS: Aspirin Chewable 81 MG TAB PO SCH (09:09)
[2018-12-18] MEDS: Gabapentin 300 MG CAP PO SCH (09:09)
[2018-12-18] MEDS: Carvedilol 6.25 MG TAB PO SCH (09:09)
[2018-12-18] MEDS: Saccharomyces boulardii 250 MG CAP PO SCH (09:10)
--- NOTE | 2018-12-18 09:29 | PRG ---
DATE OF SERVICE: 12/18/2018 SUBJECTIVE: Ms. Webb is a 68-year-old white female, who was seen for her acute kidney injury on top of her chronic renal failure. Her diuretics and TALAT inhibitors have been discontinued. Renal function is slowly improving. She was also recently diagnosed with C. difficile colitis and being treated with oral vancomycin. She has no new complaints today. No chest pain or shortness of breath. OBJECTIVE: VITAL SIGNS: Blood pressure 175/78, heart rate 80, respiratory rate 18, temperature 98, and pulse ox 93%. GENERAL: Awake, alert, and comfortable, not in distress. SKIN: Adequate turgor. HEENT: She has a pinkish conjunctivae. Anicteric sclerae. NECK: No neck mass. No JVD. LUNGS: Clear breath sounds. No wheezing. No crackles. HEART: Normal sinus rhythm. No murmurs. No gallops. No rubs. ABDOMEN: Globular, soft, and nontender. No masses. EXTREMITIES: No edema. No deformities. MEDICATIONS: Medications of December 18, 2018, reviewed. LABORATORY DATA: Laboratories of December 18, 2018, white count 10.6 and hemoglobin 9.2. Sodium 138, potassium 4.4, chloride 109, carbon dioxide 21, BUN 52, creatinine 1.99, and calcium 9.0. ASSESSMENT AND PLAN: 1. Acute kidney injury on top of her chronic renal failure, superimposed prerenal azotemia, much improved with adjustment of her diuretics as well as discontinuation of the angiotensin-converting enzyme inhibitors. Continue supportive care. There is no indication for any dialytic intervention. Continue supportive care. 2. Clostridium difficile colitis. Currently, on oral vancomycin. 3. Anemia. The patient currently on Epogen. Agree with current management. Job ID: [id number]
--- NOTE | 2018-12-18 11:54 | PDOC.HOSPP ---
- Subjective Subjective: Patient seen and examined. No new complaints. No overnight events - Objective Vital Signs & Weight: Vital Signs (12 hours) Temp Pulse Resp BP BP BP Pulse Ox 12/18/18 09:09 173/79 H 12/18/18 08:00 98.1 F 75 16 173/79 H 94 L 12/18/18 04:00 98.0 F 80 18 175/78 H 93 L 12/18/18 00:00 98.3 F 70 20 138/77 94 L Weight Admit Weight 198 lb 9.6 oz Weight 204 lb 4.8 oz I&O: 12/17/18 12/18/18 12/19/18 06:59 06:59 06:59 Intake Total 550 1120 240 Balance 550 1120 240 Result Diagrams: 12/18/18 06:23 12/18/18 06:23 ROS - Review of Systems All systems: All other ROS were reviewed and found negative. ENT: denies: ear pain, ear discharge, nose pain, nose discharge, nose congestion , mouth pain, mouth swelling, throat pain, throat swelling, other Respiratory: denies: cough, dry, shortness of breath, hemoptysis, SOB with excertion, pleuritic pain, sputum, wheezing, other Cardiovascular: denies: chest pain, palpitations, orthopnea, paroxysmal noc. dyspnea, edema, light headedness, other Gastrointestinal: denies: nausea, vomitting, abdominal pain, diarrhea, constipation, melena, hematochezia, other Genitourinary: denies: dysuria, frequency, incontinence, hematuria, retention, other Musculoskeletal: denies: neck pain, shoulder pain, arm pain, back pain, hand pain, leg pain, foot pain, other Skin: denies: rash, lesions, [place], bruising, other - Medication Medications: Active Medications Generic Name Dose Route Start Last Admin Trade Name Freq PRN Reason Stop Dose Admin Acetaminophen 650 mg 12/10/18 18:38 12/16/18 10:46 Tylenol PO 650 mg Q4H PRN Administration Headache/Fever/Mild Pain (1-3) Hydrocodone Bitart/Acetaminophen 1 tab 12/16/18 20:58 12/17/18 21:24 [place] 10/325 PO 1 tab Q4H PRN Administration Moderate Pain (4-6) Aspirin 81 mg 12/11/18 09:00 12/18/18 09:09 Aspirin Chewable PO 81 mg DAILY TAMMY Administration Atorvastatin Calcium 40 mg 12/11/18 09:00 12/18/18 09:09 Lipitor PO 40 mg DAILY TAMMY Administration Carvedilol 6.25 mg 12/10/18 21:00 12/18/18 09:09 Coreg PO 6.25 mg BID TAMMY Administration Enoxaparin Sodium 30 mg 12/11/18 09:00 12/18/18 09:06 Lovenox SC 30 mg 0900 TAMMY Administration Epoetin Arnulfo-epbx 7,500 unit 12/11/18 12:00 12/11/18 16:29 Retacrit SC 7,500 unit Q7D TAMMY Administration Gabapentin 300 mg 12/10/18 21:00 12/18/18 09:09 Neurontin PO 300 mg BID TAMMY Administration Glipizide 2.5 mg 12/11/18 08:00 12/18/18 09:06 Glucotrol Xl PO 2.5 mg QAM-WM TAMMY Administration Paroxetine HCl 30 mg 12/11/18 09:00 12/18/18 09:07 Paxil PO 30 mg DAILY TAMMY Administration Saccharomyces Boulardii 250 mg 12/16/18 09:00 12/18/18 09:10 Florastor PO 250 mg DAILY TAMMY Administration Sodium Bicarbonate 650 mg 12/11/18 09:00 12/18/18 09:07 Bicarbonate, Sodium PO 650 mg TID TAMMY Administration Sodium Chloride 10 ml 12/10/18 21:00 12/18/18 09:10 Flush - Normal Saline IVF 10 ml Q12HR TAMMY Administration Vancomycin HCl 125 mg 12/16/18 12:00 12/18/18 06:03 First Vancomycin PO 125 mg Q6HR TAMMY Administration - Exam NAD, awake alert Eye: PERRL, anicteric sclera ENT: normocephalic atraumatic, no oropharyngeal lesions Neck: symmetric, no JVD, no Thyromegaly Heart: RRR, no murmur, no gallops Respiratory: CTAB, no wheezes, no rales, no ronchi Gastrointestinal: soft, non-tender, non-distended, normal bowel sounds Extremities: no cyanosis, no clubbing, no edema Skin: normal turgor, no lesions Neurological: no focal deficits Musculoskeletal: normal tone, normal strength Psychiatric: normal affect, normal behavior Hosp A/P (1) NEFTALI (acute kidney injury) Code(s): N17.9 - ACUTE KIDNEY FAILURE, UNSPECIFIED Status: Acute (2) Abnormal liver function test Code(s): R94.5 - ABNORMAL RESULTS OF LIVER FUNCTION STUDIES Status: Acute (3) Acute on chronic systolic (congestive) heart failure Code(s): I50.23 - ACUTE ON CHRONIC SYSTOLIC (CONGESTIVE) HEART FAILURE Status : Acute (4) Hypoalbuminemia Code(s): E88.09 - OTH DISORDERS OF PLASMA-PROTEIN METABOLISM, NEC Status: Acute (5) Metabolic acidosis Code(s): E87.2 - ACIDOSIS Status: Acute (6) Normocytic anemia Code(s): D64.9 - ANEMIA, UNSPECIFIED Status: Acute (7) RUQ abdominal pain Code(s): R10.11 - RIGHT UPPER QUADRANT PAIN Status: Acute (8) Spontaneous bacterial peritonitis Code(s): K65.2 - SPONTANEOUS BACTERIAL PERITONITIS Status: Acute (9) Anxiety and depression Code(s): F41.9 - ANXIETY DISORDER, UNSPECIFIED; F32.9 - MAJOR DEPRESSIVE DISORDER, SINGLE EPISODE, UNSPECIFIED Status: Chronic (10) CAD (coronary artery disease) Code(s): I25.10 - ATHSCL HEART DISEASE OF [place] CORONARY ARTERY W/O ANG PCTRS Status: Chronic Qualifiers: Coronary Disease-Associated Artery/Lesion type: bypass graft [place] vs. transplanted heart: [place] heart Associated angina: without angina Qualified Code(s): I25.810 - Atherosclerosis of coronary artery bypass graft(s) without angina pectoris (11) CKD (chronic kidney disease) stage 4, GFR 15-29 ml/min Code(s): N18.4 - CHRONIC KIDNEY DISEASE, STAGE 4 (SEVERE) Status: Chronic (12) Cholelithiasis Code(s): K80.20 - CALCULUS OF GALLBLADDER W/O CHOLECYSTITIS W/O OBSTRUCTION Status: Chronic Qualifiers: Cholelithiasis location: gallbladder Cholecystitis presence: without cholecystitis Biliary obstruction: without biliary obstruction Qualified Code(s): K80.20 - Calculus of gallbladder without cholecystitis without obstruction (13) DM type 2 (diabetes mellitus, type 2) Status: Chronic Qualifiers: Diabetes mellitus fdc insulin 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 Diabetes mellitus complication status: with kidney complications Diabetes mellitus complication detail: with chronic kidney disease Chronic kidney disease stage : stage 4 (severe) Qualified Code(s): E11.22 - Type 2 diabetes mellitus with diabetic chronic kidney disease; N18.4 - Chronic kidney disease, stage 4 (severe ) (14) HLD (hyperlipidemia) Code(s): E78.5 - HYPERLIPIDEMIA, UNSPECIFIED Status: Chronic (15) HTN (hypertension) Code(s): I10 - ESSENTIAL (PRIMARY) HYPERTENSION Status: Chronic Qualifiers: Hypertension type: essential hypertension Qualified Code(s): I10 - Essential (primary) hypertension - Plan old records reviewed/req, PT/OT, social media campaign manager medication reviewed as below symptomatic treatment see discharge juan pablo
[2018-12-18] MEDS: EPOETIN ALFA-EPBX (ESRD) 4,000 UNIT/ML VIAL SC SCH (12:43)
--- NOTE | 2018-12-18 13:03 | DIS ---
DATE OF ADMISSION: 12/10/2018 DATE OF DISCHARGE: 12/18/2018 PRIMARY CARE PHYSICIAN: [facility] Call Admission. DISCHARGE DISPOSITION: [facility] bed. PRIMARY DISCHARGE DIAGNOSES: 1. Qkedt-ln-rgmfyik systolic congestive heart failure. 2. Acute kidney injury. 3. Clostridium difficile infection. 4. Spontaneous bacterial peritonitis. SECONDARY DISCHARGE DIAGNOSES: 1. Hypertension. 2. Dyslipidemia. 3. Diabetes type 2. 4. Chronic kidney disease, stage 4. 5. Cholelithiasis. 6. Normocytic anemia. 7. Coronary artery disease. 8. Chronic systolic heart failure. PRIMARY PROCEDURE/OPERATION: Paracentesis, radiological investigation, chest x- ray, abdomen and pelvis CT scan, lumbar spine x-ray, thoracic spine x-ray, skull x- ray. SIGNIFICANT LABORATORY DATA: Hemoglobin 9.2. INR 1.2. Creatinine 1.99. Urine protein electrophoresis negative. Ascitic fluid . Autoimmune workup is negative. Hepatitis profile negative. C diff antigen positive. Toxin, negative. Blood culture, negative. Ascitic fluid culture, DISCHARGE MEDICATIONS: 1. Sodium bicarbonate 650 mg t.i.d. 2. Florastor 250 mg p.o. daily. 3. Lisinopril 5 mg daily. 4. Glucotrol 2.5 mg daily. 5. Lasix 40 mg daily. 6. Coreg 6.25 mg b.i.d. 7. Aspirin 81 mg daily. 8. Zantac 75 mg daily. 9. Paxil 30 mg daily. 10. Iron 65 mg b.i.d. 11. Gabapentin 300 mg b.i.d. 12. Lipitor 40 mg p.o. daily. 13. Oral vancomycin 125 mg q.6 hourly for 10 days. CONTRAINDICATION: None. CODE STATUS: Full code. INPATIENT EVENTS ADMINISTRATIVE ASSISTANT: Heat Treater. Dr. Magallanes was following while in hospital. Cardiology team, Dr. Hernández was following while in hospital. Nephrology Group, Dr. Berumen was following while in hospital. TEST RESULTS PENDING ON DISCHARGE: None. ALLERGIES: NO KNOWN DRUG ALLERGIES. DISCHARGE PLAN: Posthospital, the patient will follow up with primary care physician, Dr. Hernández, Dr. Magallanes, and Dr. Berumen as instructed. HOSPITAL COURSE: A 68-year-old female with above-mentioned medical problem, who was admitted by Dr. [facility] on December 10, 2018. Please see his H and P for further details. On admission, the patient was having CHF exacerbation. She was also complaining of abdominal pain predominantly in right upper quadrant as well as she was having acute kidney injury and her white count was elevated. She had metabolic acidosis, suspected urinary tract infection and hypoalbuminemia. This patient was admitted to Medicine Service. The patient required Nephrology consultation. This patient also required Cardiology consultation as well as Gastroenterology consultation. She was treated with empiric antibiotic therapy for spontaneous bacterial peritonitis, which was diagnosed after paracentesis of ascitic fluid. The patient has finished antibiotic course while in hospital. She had diarrhea and that is why stool for infection workup came back positive for C diff, antigen positive and toxin negative and which was treated with oral vancomycin. At this point, the patient has finished antibiotic therapy, but she will continue oral vancomycin for another 10 to 15 days while she had metabolic acidosis that was treated with sodium bicarbonate. Rest of her medication was continued while in the hospital. We adjusted cardiac medication as above. Upon discharge, we restarted her lisinopril because of chronic systolic heart failure. I have seen and examined the patient at bedside today. The patient will continue above-mentioned medication and she will follow up with primary care physician in one week. The patient will need repeat lab testing done within one week to see her potassium and renal function remained stable after starting TALAT inhibitor. Please see my progress note from today for further detail. Paperwork for discharge done and discharge medication reconciliation done. Job ID: [id number] MTDD
[2018-12-18 13:13] VITALS: BP 133/75
== END 2018-12-18 13:43 | disposition swing bed (61) | DRG 291 ==
LOC: ERS 12:12 → T4-B 18:17
PROVIDERS: ADMIT Internal Medicine; ATTEND Internal Medicine
PROC: 0W9G3ZZ Drainage of Peritoneal Cavity, Percutaneous Approach (ICD-10-PCS; principal; 2018-12-14)
DX: I13.0 Hypertensive heart and chronic kidney disease with heart failure and stage 1 through stage 4 chronic kidney disease, or unspecified chronic kidney disease (principal); K65.2 Spontaneous bacterial peritonitis; I50.23 Acute on chronic systolic (congestive) heart failure; N17.9 Acute kidney failure, unspecified; E87.2 Acidosis; A04.72 Enterocolitis due to Clostridium difficile, not specified as recurrent; N18.4 Chronic kidney disease, stage 4 (severe); N39.0 Urinary tract infection, site not specified; E88.09 Other disorders of plasma-protein metabolism, not elsewhere classified; I25.10 Atherosclerotic heart disease of native coronary artery without angina pectoris; E11.22 Type 2 diabetes mellitus with diabetic chronic kidney disease; K80.20 Calculus of gallbladder without cholecystitis without obstruction; E11.40 Type 2 diabetes mellitus with diabetic neuropathy, unspecified; F41.9 Anxiety disorder, unspecified; F32.9 Major depressive disorder, single episode, unspecified; G43.909 Migraine, unspecified, not intractable, without status migrainosus; I25.5 Ischemic cardiomyopathy; D63.1 Anemia in chronic kidney disease; Z90.710 Acquired absence of both cervix and uterus; Z79.899 Other long term (current) drug therapy; Z79.84 Long term (current) use of oral hypoglycemic drugs; Z79.82 Long term (current) use of aspirin
CPT/HCPCS: 36415; 36416; 49083; 70260; 71046; 72072; 72100; 74176; 76705; 80048; 80053; 80069; 80074; 80076; 81003; 81015; 82042; 82248; 82550; 82728; 82977; 83516; 83540; 83550; 83605; 83690; 83880; 83883; 84157; 84165; 84166; 84443; 84484; 85025; 85046; 85060; 85610; 85730; 86038; 86225; 87040; 87070; 87086; 87149; 87205; 87324; 87449; 87493; 89051; 93005; 93798; 96365; 96366; 96375; J0696; J1650; J1940; J1956; J2270; J2405; J3490; P9047; Q5105

== ENCOUNTER 2018-12-20 13:03 | Inpatient (IN) | payer MEDICARE ==
[2018-12-20] MEDS ORDERED: Lidocaine 1% PF 5 ML VIAL ONE (14:09)
[2018-12-20] MEDS ORDERED: EPINEPHrine 1 MG/10 ML Abboject SYRINGE ONE ×2 (14:09→18:56)
[2018-12-20] MEDS ORDERED: Succinylcholine Chloride 20 MG/ML 10 ml SYRINGE FS ONE (14:09)
[2018-12-20] MEDS ORDERED: PROPOFOL 200 MG/20 ML VIAL ONE (14:09)
[2018-12-20 14:50] VITALS: BMI 32.5
[2018-12-20] MEDS ORDERED: Ondansetron ODT 4 MG TAB PO PRN (14:59)
[2018-12-20] MEDS ORDERED: Dextrose 5% in Water 1,000 ML IV PRN (14:59)
[2018-12-20] MEDS ORDERED: Dextrose 50% Abboject 50 ML SYRINGE SLOW IVP PRN (14:59)
[2018-12-20] MEDS ORDERED: Pantoprazole 80 MG in Sodium Chloride 0.9% 100 ML IVP SCH (15:00)
[2018-12-20 15:01] LABS: Hemoglobin 7.6 g/dL (12.0-16.0)
[2018-12-20] MEDS: Sodium Chloride 0.9% 1,000 ML IV SCH (15:30)
[2018-12-20] MEDS: Pantoprazole 80 MG in Sodium Chloride 0.9% 100 ML IVPB SCH (16:45)
--- NOTE | 2018-12-20 17:12 | PDOC.EVN ---
Event Note - Event Note Event Note: Nsg reports hematemesis and more melena. Will place NGT now, NPO, transfusing 2u PRBC's, continue Protonix gtt. Transfer to IMCU for closer monitoring and GI aware of consult but pending evaluation.
--- NOTE | 2018-12-20 19:10 | RAD ---
KUB: 12/20/18 INDICATION: History of NG tube placement. FINDINGS: NG tube tip is seen at the level of the gastroesophageal junction. Would recommend advancement approx imately [address] the catheter within the region of the gastric body. Lung bases are clear. There is surgical clips along the left heart border. There are midline sternotomy changes. The visualized bowel gas pattern in the upper abdomen is within normal limits. IMPRESSION: NG tube as above. POS: BH
[2018-12-20] MEDS ORDERED: Fentanyl 100 MCG/2 ML VIAL ONE (19:18)
[2018-12-20] MEDS ORDERED: Promethazine HCl 25 MG/ML VIAL IM PRN (20:20)
[2018-12-20] MEDS ORDERED: Promethazine HCl 25 MG/ML VIAL SLOW IVP PRN (20:20)
[2018-12-20] MEDS ORDERED: Ondansetron HCl/PF 4 MG/2 ML Vial IVP PRN (20:20)
[2018-12-20] MEDS ORDERED: Labetalol HCl 100 MG/20 ML VIAL ONE (20:25)
[2018-12-20] MEDS ORDERED: Ondansetron PF 4 MG/2 ML Vial ONE (20:29)
[2018-12-20] MEDS ORDERED: Promethazine HCl 25 MG/ML VIAL ONE (20:42)
--- NOTE | 2018-12-20 21:48 | HP ---
PRIMARY CARE PROVIDER: Dr. López. CHIEF COMPLAINT: Blood in the stool. HISTORY OF PRESENT ILLNESS: This is a 68-year-old female, who presents to [facility] in direct admission from [facility], where the patient was currently transferred after a hospital stay from 12/10/2018 to 12/18/2018, diagnosed with oudlv-zw-suxdtta systolic congestive heart failure, acute kidney injury, and Clostridium difficile colitis. The patient was transferred to the [facility] for further evaluation, physical therapy, and continuation of treatment for C difficile including oral vancomycin. The patient was noted with melena as well as coffee-grounds emesis on 12/20/2018, by Dr. López. At which point, the patient received IV Protonix 40 mg x1 dose, IV fluids, and hemoglobin assessment showing a decrease to 7.9 from previous discharge level, the initial value of 9.2 on 12/18/2018 to a current level of 7.6 on 12/20/2018. The patient was given IV fluids en route, however, had not received packed red blood cell transfusion prior to arriving to the telemetry unit. The patient admits to feeling cold, lethargic, and generalized weakness. The patient also admits to multiple bowel movements due to the Clostridium difficile infection as well as the GI bleed. Nursing personnel noted maroon stool with some blood-tinged and coffee-grounds emesis. The patient does report taking a daily aspirin, but no anticoagulation. The patient is currently treated with vancomycin orally for Clostridium difficile antigen positive sample on 12/15/2018. PAST MEDICAL HISTORY: 1. Cohqt-vq-kywpmya systolic congestive heart failure. 2. Chronic kidney disease, stage 4. 3. Hypertension. 4. Dyslipidemia. 5. Diabetes mellitus, type 2. 6. Chronic normocytic anemia. 7. Coronary artery disease. 8. 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 PAST SURGICAL HISTORY: 1. Status post left carotid endarterectomy. 2. Status post hysterectomy. 3. Status post left elbow surgery. 4. Status post right forefoot amputation. 5. Status post coronary artery bypass grafting x1 vessel in 2013. CURRENT MEDICATIONS: Based on recent discharge on 12/18/2018, 1. Sodium bicarbonate 650 mg p.o. t.i.d. 2. Florastor 250 mg p.o. daily. 3. Lisinopril 5 mg p.o. daily. 4. Glucotrol 2.5 mg p.o. daily. 5. Lasix 40 mg p.o. daily. 6. Coreg 6.25 mg p.o. b.i.d. 7. Aspirin 81 mg p.o. daily. 8. Zantac 75 mg p.o. daily. 9. Paxil 30 mg p.o. daily. 10. Iron 65 mg p.o. b.i.d. 11. Gabapentin 300 mg p.o. b.i.d. 12. Lipitor 40 mg p.o. daily. 13. Vancomycin 125 mg p.o. q.6 hours. ALLERGIES: NO KNOWN DRUG ALLERGIES. FAMILY HISTORY: Mother at the age of 63. Father of complications of myocardial infarction at age of 62. SOCIAL HISTORY: No current alcohol, tobacco, or illicit drug use. Ambulatory with the use of a rolling walker. Currently [facility] bed after recent discharge from [facility] on 12/18/2018. REVIEW OF SYSTEMS: CONSTITUTIONAL: Negative for weight loss or gain, ability to conduct usual activities. SKIN: Negative for rash, itching. EYES: Negative for double vision, pain. ENT/MOUTH: Negative for nose bleeding, neck stiffness, pain, tenderness. CARDIOVASCULAR: Negative for palpitations, dyspnea on exertion, orthopnea. RESPIRATORY: Negative for shortness of breath, wheezing, cough, hemoptysis, fever or night sweats. GASTROINTESTINAL: Negative for poor appetite, abdominal pain, heartburn, nausea, vomiting, constipation, or diarrhea. GENITOURINARY: Negative for urgency, frequency, dysuria, nocturia. MUSCULOSKELETAL: Negative for pain, swelling. NEUROLOGIC/PSYCHIATRIC: Negative for anxiety, depression. ALLERGY/IMMUNOLOGIC: Negative for skin rash, bleeding tendency. Otherwise negative except as stated per HPI. PHYSICAL EXAMINATION: VITAL SIGNS: On admission, blood pressure 130/81, pulse 105, respiratory rate 22, temperature 98 degrees Fahrenheit, O2 saturation 92% on room air. GENERAL APPEARANCE: This is a 68-year-old female, lying on the hospital bed, alert, pale, responsive, in mild distress. HEENT: Pupils are equal, round, reactive to light and accommodation. Extraocular muscles are intact. No scleral icterus. No conjunctival injection. Nares patent. OP is clear. Oral mucosa dry. Pale lips noted. NECK: Supple. No cervical adenopathy. No thyromegaly. No carotid bruits. No JVD appreciated. Postsurgical changes noted in the left carotid artery distribution consistent with prior carotid endarterectomy. CHEST: Lungs are clear to auscultation bilaterally. CARDIOVASCULAR: S1 and S2 with tachycardia. No murmur, rub, or gallop appreciated. ABDOMEN: Obese with mild tenderness to palpation diffusely. Bowel sounds are positive in all 4 quadrants. No palpable mass. Landmarks are difficult to palpate due to patient's body habitus. EXTREMITIES: Warm and dry with fair turgor. Pale nailbeds noted. Pulses are palpable distally at the dorsalis pedis, posterior tibial, and popliteal arteries bilaterally. Capillary refill less than 2 seconds. Right forefoot amputation noted chronic. NEUROLOGIC: Cranial nerves 2 through 12 are grossly intact. Chronic left facial palsy noted. PERTINENT LAB AND X-RAY FINDINGS: Sodium 142, potassium 4.9, chloride 112, CO2 of 21, BUN 48, creatinine 1.73, estimated GFR 29, glucose 125, calcium 8.2, AST 86, ALT of 46, alkaline phosphatase 721, albumin 3.1. CBC showed a white blood cell count of 12.6, hemoglobin 7.6, previously noted 9.2 on 12/18/2018, hematocrit 23.4, platelet count 362 with 81% neutrophils. PT 14.5, INR 1.1, PTT 46.5. Telemetry monitoring shows sinus tachycardia with heart rates in the 105 to 110 range. ASSESSMENT AND PLAN: 1. Acute gastrointestinal bleed. Suspected upper tract source. We will initiate Protonix infusion. Type and cross for 2 units of packed red blood cells and transfuse when available. Consult GI Service for evaluation and consideration for endoscopy. Avoid anticoagulation and nonsteroidal anti-inflammatory drugs. Serial hemoglobin and hematocrit monitoring. Place second peripheral IV. Continue intravenous normal saline at 100 mL/h. 2. Acute blood loss anemia secondary to gastrointestinal bleed. See #1 above. Serial hemoglobin and hematocrit monitoring and repeat CBC in the a.m. 3. Chronic kidney disease, stage 4. Avoid nephrotoxic agents and limit contrast exposure. Serial creatinine monitoring. 4. Clostridium difficile antigen positive colitis. Continue vancomycin 125 mg p.o. q.6 hours. 5. Diabetes mellitus, type 2. Insulin sliding scale for reflexive coverage. ADA diet when tolerating p.o. intake. Serial Accu-Cheks before meals and at bedtime. 6. Prophylaxis. SCDs while in bed. Protonix infusion as stated previously. PT evaluation for functional assessment. Contact precautions. 7. Code status is full. 8. Surrogate medical decision maker is Sina Shalonda Nielson, patient's sister. Job ID: [id number]
[2018-12-20 21:57] LABS: Hemoglobin 8.8 g/dL (12.0-16.0)
[2018-12-20] MEDS: Labetalol HCl 100 MG/20 ML VIAL SLOW IVP PRN (23:36)
[2018-12-21] MEDS: hydrALAZINE 20 MG/ML VIAL SLOW IVP PRN ×2 (01:15→12:43)
[2018-12-21] MEDS: Sodium Chloride 0.9% 1,000 ML IV SCH ×3 (01:46→16:30)
--- NOTE | 2018-12-21 02:53 | OP ---
DATE OF PROCEDURE: 12/20/2018 PREPROCEDURE DIAGNOSES: 1. GI hemorrhage. 2. Heart failure. 3. Renal failure. 4. Hemodynamic instability. POSTPROCEDURE DIAGNOSES: 1. Mild gastritis with no active bleeding nodular, not biopsied secondary to recent Lovenox. 2. Duodenal bulb ulcers 3-4, extending to the second portion of the duodenum, most of white base, some with red markings with no bleeding along with visible vessel with adherent clot, likely bleeding source. This was injected with 1:10,000 epinephrine 3 mL and then cauterized. The visible vessels ablated with 10-[place] heater probe cautery. Attempts were made to place a clip over the ulcer, but this was not successful. There was no bleeding at the termination of the procedure. RECOMMENDATIONS: Continue Protonix drip. Continue ICU observation. H and H q.8 hours. DESCRIPTION OF PROCEDURE: After the patient was moved to the ICU and stabilized, transfusion of 2 units of blood for hemoglobin of 7.6. She was brought to endoscopy suite. She was still quite pale, but hemodynamically stable. She was given another unit of blood that was ordered at that time. She was intubated for airway protection. The NG tube was removed. The endoscope was advanced through the esophagus, stomach, and second and third portion of duodenum. The esophagus was notable for some NG tube trauma in the esophagus and in the proximal stomach, but no bleeding was identified. There was no evidence of [place] tear or varices. The stomach was entered. There was some fresh blood in the pyloric near the antrum. This was irrigated away and there was no vessels or ulcer seen in this area. The duodenal bulb was entered. There was multiple ulcers about a centimeter in size with some heme staining in the base either red or black, but no visible vessels. These were irrigated and evaluated closely, one with a slightly reddish black. Pigment spot was cauterized with 1:10,000 epinephrine. No bleeding. At the apex of the duodenal bulb, a clot was seen. This was suctioned away, but was found to be adherent to the underlying ulcer. This was injected with epinephrine 1:10,000, 3 mL. Then, the clot was removed, visible vessels seen, this was ablated with 10-[place] heater probe. Attempts were made to collect the clip over this area to bring the edge of the margin of the ulcer together but because of the positioning of the ulcer in relation to the angle of the scope, we were not able to get a clip on the ulcer. We were able to observe this area for a few minutes. There was no bleeding. I evaluated the remainder of the duodenum to the third portion and stomach again in the esophagus skin with no other bleeding sites identified. No reaccumulation of blood. We looked at the ulcer again and it was seen to be hemostatic. The scope was removed. NG tube was not replaced. The patient was extubated and brought to the ICU in stable condition. Job ID: [id number]
[2018-12-21] MEDS: Ondansetron PF 4 MG/2 ML Vial IVP PRN ×2 (04:23→09:55)
[2018-12-21] MEDS: Pantoprazole 80 MG in Sodium Chloride 0.9% 100 ML IVPB SCH ×2 (04:23→16:26)
[2018-12-21 05:32] LABS: ALT (SGPT) 30 U/L (8-55); AST (SGOT) 37 U/L (5-34); Albumin 3.1 g/dL (3.4-4.8); Alkaline Phosphatase 552 U/L (40-150); Anion Gap 19 mmol/L (10-20); BUN (Urea Nitrogen) 48 mg/dL (9.8-20.1); Bilirubin, Total 0.8 mg/dL (0.2-1.2); Calc. Creatinine Clearance 60 mL/min (70-130); Carbon Dioxide 16 mmol/L (23-31); Chloride 112 mmol/L (98-107); Estimated GFR-MDRD 40; Globulin 3.8 g/dL (2.4-3.5); Glucose 244 mg/dL (80-115); Potassium 4.8 mmol/L (3.5-5.1); Protein, Total 6.9 g/dL (6.0-8.3); Sodium 142 mmol/L (136-145)
[2018-12-21 05:34] LABS: Band 2 % (5-11); Hemoglobin 9.3 g/dL (12.0-16.0); Lymphocytes 12 % (21-51); MDiff Complete? YES; Mean Corpuscular HGB CONC 33.7 g/dL (32.0-36.0); Mean Corpuscular Hemoglobin 30.2 pg (27.0-31.0); Mean Corpuscular Volume 89.6 fL (78.0-98.0); Mean Platelet Volume 6.6 fL (7.4-10.4); Monocytes 6 % (0-10); Neutrophil 80 % (42-75); Platelet Count 394 thou/uL (130-400); Platelet Morphology Comment Appears Adequate; RBC Morphology Normal; Red Blood Cell (RBC) Count 3.09 mill/uL (4.20-5.40); White Blood Cell (WBC) Count 18.1 thou/uL (4.8-10.8)
[2018-12-21] MEDS ORDERED: Promethazine HCl 25 MG/ML VIAL IM/IV PRN (08:07)
[2018-12-21] MEDS: Labetalol HCl 100 MG/20 ML VIAL SLOW IVP PRN (08:49)
[2018-12-21] MEDS: Promethazine HCl 25 MG/ML VIAL IVPB PRN ×3 (08:50→21:06)
[2018-12-21] MEDS: Acetaminophen 500 MG TAB PO PRN (12:43)
--- NOTE | 2018-12-21 12:44 | PDOC.HOSPP ---
- Subjective Subjective: Reports nausea and dry heaving. Denies abdominal pain. - Objective Vital Signs & Weight: Vital Signs (12 hours) Temp Pulse BP Pulse Ox 12/21/18 11:00 98.7 F 12/21/18 08:49 94 191/88 H 12/21/18 08:00 96 12/21/18 07:00 98.7 F 12/21/18 04:00 98.8 F 12/21/18 01:15 94 191/88 H Weight Admit Weight 207 lb 9.6 oz Weight 207 lb 9.6 oz Most Recent Monitor Data Heart Rate from ECG 85 NIBP 186/95 NIBP BP-Mean 125 Respiration from ECG 20 SpO2 94 I&O: 12/20/18 12/21/18 12/22/18 06:59 06:59 06:59 Intake Total 1633 Output Total 100 500 Balance 1533 -500 Result Diagrams: 12/21/18 04:40 12/21/18 04:40 ROS - Review of Systems All systems: All other ROS were reviewed and found negative. - Medication Medications: Active Medications Generic Name Dose Route Start Last Admin Trade Name Freq PRN Reason Stop Dose Admin Hydralazine HCl 10 mg 12/20/18 14:59 12/21/18 01:15 Apresoline SLOW IVP 10 mg Q4H PRN Administration SBP > 180 and HR < 70 Sodium Chloride 1,000 mls @ 100 mls/hr 12/20/18 15:00 12/21/18 04:30 Normal Saline 0.9% IV 1,000 mls .Q10H TAMMY Administration Pantoprazole Sodium 80 mg/ 100 mls @ 10 mls/hr 12/20/18 16:15 12/21/18 04:23 Sodium Chloride IVPB 100 mls INF TAMMY Administration Labetalol HCl 10 mg 12/20/18 23:18 12/21/18 08:49 Normodyne SLOW IVP 10 mg Q4H PRN Administration Systolic BP > 180 Ondansetron HCl 4 mg 12/20/18 14:59 12/21/18 09:55 Zofran IVP 4 mg Q6H PRN Administration Nausea/Vomiting Promethazine HCl 12.5 mg 12/21/18 08:42 12/21/18 08:50 Phenergan IVPB 12.5 mg Q6H PRN Administration Nausea - Exam NAD (Making prolonged, loud grunting type noises that she says is due to her dry heaving.) Neck: supple, symmetric Heart: RRR, no murmur, no gallops, no rubs Respiratory: CTAB, no wheezes, no rales, no ronchi Gastrointestinal: soft, non-tender, non-distended, normal bowel sounds, no palpable masses, no hepatomegaly, no splenomegaly Skin: normal turgor Neurological: CN's grossly intact Psychiatric: normal affect (Slightly off.) Hosp A/P (1) Duodenal ulcer disease Status: Acute (2) Upper GI bleed Code(s): K92.2 - GASTROINTESTINAL HEMORRHAGE, UNSPECIFIED Status: Acute (3) Clostridioides difficile infection Code(s): A49.8 - OTHER BACTERIAL INFECTIONS OF UNSPECIFIED SITE Status: Acute (4) CAD (coronary artery disease) Code(s): I25.10 - ATHSCL HEART DISEASE OF [place] CORONARY ARTERY W/O ANG PCTRS Status: Chronic Qualifiers: Coronary Disease-Associated Artery/Lesion type: bypass graft [place] vs. transplanted heart: [place] heart Associated angina: without angina Qualified Code(s): I25.810 - Atherosclerosis of coronary artery bypass graft(s) without angina pectoris (5) DM type 2 (diabetes mellitus, type 2) Status: Chronic Qualifiers: Diabetes mellitus custodial insulin use: without custodial use Diabetes mellitus complication status: with kidney complications Diabetes mellitus complication detail: with chronic kidney disease Chronic kidney disease stage : stage 4 (severe) Qualified Code(s): E11.22 - Type 2 diabetes mellitus with diabetic chronic kidney disease; N18.4 - Chronic kidney disease, stage 4 (severe ) (6) HLD (hyperlipidemia) Code(s): E78.5 - HYPERLIPIDEMIA, UNSPECIFIED Status: Chronic (7) HTN (hypertension) Code(s): I10 - ESSENTIAL (PRIMARY) HYPERTENSION Status: Chronic Qualifiers: Hypertension type: essential hypertension Qualified Code(s): I10 - Essential (primary) hypertension (8) Nausea Code(s): R11.0 - NAUSEA Status: Acute (9) CKD (chronic kidney disease), stage IV Code(s): N18.4 - CHRONIC KIDNEY DISEASE, STAGE 4 (SEVERE) Status: Acute (10) Acute blood loss anemia Code(s): D62 - ACUTE POSTHEMORRHAGIC ANEMIA Status: Acute - Plan Had UGIB. Had endoscopy with cauterization yesterday. Now reporting nausea. Phenergan ordered. Has not helped yet. Zofran was not effective. Trying some sips of water. If she can keep that down, will resume her Vanc and other home meds. BP still high. PRN's available. Hemoglobin improving.
[2018-12-21] MEDS: HumaLOG 300 UNITS/3 ML VIAL SC PRN ×2 (13:24→16:39)
--- NOTE | 2018-12-21 14:14 | PRG ---
DATE OF SERVICE: 12/21/2018 SUBJECTIVE: Ms. Webb is doing well. She has had no further bleeding since last night's endoscopy. She is without complaints. OBJECTIVE: VITAL SIGNS: Temperature is 98.7, T-max 99.4 at 1600 hours yesterday, pulse 94, and blood pressure 186/95. GENERAL: She is mildly pale and somewhat confused. LUNGS: Clear. HEART: Regular rate and rhythm. ABDOMEN: Protuberant with shifting dullness, fluid wave. EXTREMITIES: No clubbing, cyanosis, or edema. LABORATORY DATA: White count 18,000 from 12,000 yesterday, hemoglobin is 9.3, and platelet count 394. INR 1.1 yesterday. Sodium 142, potassium 4.8, BUN and creatinine are 48 and 1.3. AST 37, ALT is 30, alkaline phosphatase is 552, albumin 3.1, protein 6.9, bilirubin is 0.8. ASSESSMENT: 1. Gastrointestinal hemorrhage from duodenal ulcer, treated endoscopically. She is on a Protonix drip. This can stop tomorrow she can go to IV Protonix q.12. 2. Recent Clostridium difficile infection. She is being treated for this. She has been on treatment for over 7 days. It is unclear if she had truly had Clostridium difficile. She had an antigen positive, toxin negative, but the decision finished. 3. Diabetes. 4. Coronary artery disease. 5. Congestive heart failure. 6. Gastrointestinal bleed with anemia, stable now. 7. Nausea, agree with Phenergan. We will follow along with you during this hospitalization. Job ID: [id number]
[2018-12-22] MEDS: Sodium Chloride 0.9% 1,000 ML IV SCH ×2 (02:24→16:03)
[2018-12-22] MEDS: Pantoprazole 80 MG in Sodium Chloride 0.9% 100 ML IVPB SCH (03:23)
[2018-12-22] MEDS: hydrALAZINE 20 MG/ML VIAL SLOW IVP PRN ×3 (04:07→15:06)
--- NOTE | 2018-12-22 08:13 | PRG ---
DATE OF SERVICE: 12/22/2018 SUBJECTIVE: This morning, awake, alert, and responsive. She remains in the ICU. OBJECTIVE: VITAL SIGNS: Sats are 94%_ on room air, temperature 97, blood pressure 160/93, and pulse 96. She denies any pain, discomfort, or shortness of breath. CHEST: No crackles, rubs, or wheezing. CARDIAC: Normal S1 and S2. No gallops. ABDOMEN: No masses. LABORATORY DATA: Glucose is 215. Last H and H are stable at 9 and 27. IMPRESSION: Gastrointestinal bleed, renal failure, and hypotension_ resolved. PLAN: Pulmonary guerrier, to transfer her out of the ICU. Pulmonary will follow at a distance when she leaves the ICU. Job ID: [id number] MTDD
[2018-12-22] MEDS: PARoxetine 20 MG TAB PO SCH (08:46)
[2018-12-22] MEDS: Atorvastatin Calcium 40 MG TAB PO SCH (08:47)
[2018-12-22] MEDS: Gabapentin 300 MG CAP PO SCH ×2 (08:47→20:41)
[2018-12-22] MEDS: Lisinopril 5 MG TAB PO SCH (08:47)
[2018-12-22] MEDS: Sodium Bicarbonate Tab 325 MG TAB PO SCH ×3 (08:47→20:41)
[2018-12-22] MEDS: Saccharomyces boulardii 250 MG CAP PO SCH (08:47)
[2018-12-22] MEDS: Carvedilol 6.25 MG TAB PO SCH ×2 (08:47→20:41)
[2018-12-22] MEDS: Vancomycin HCl 25 MG/ML Oral PO SCH ×3 (09:29→19:35)
--- NOTE | 2018-12-22 09:31 | PDOC.HOSPP ---
- Subjective Subjective: Still has some nausea and dry heaves. She had some vomiting yesterday, but none today so far. Was able to take her pills, but still feels nauseated. - Objective Vital Signs & Weight: Vital Signs (12 hours) Temp Pulse BP Pulse Ox 12/22/18 08:47 98 189/104 H 12/22/18 08:22 98 189/104 H 12/22/18 07:18 93 L 12/22/18 07:00 97.9 F 12/22/18 04:07 93 193/108 H Weight Admit Weight 207 lb 9.6 oz Weight 207 lb 9.6 oz Most Recent Monitor Data Heart Rate from ECG 98 NIBP 146/72 NIBP BP-Mean 96 Respiration from ECG 22 SpO2 96 I&O: 12/21/18 12/22/18 12/23/18 06:59 06:59 06:59 Intake Total 1633 2736 Output Total 100 1900 200 Balance 1533 836 -200 Result Diagrams: 12/21/18 04:40 12/21/18 04:40 Additional Labs: Accuchecks 12/22/18 12/21/18 12/21/18 06:25 16:39 13:04 POC Glucose 215 H 274 H 271 H ROS - Review of Systems All systems: All other ROS were reviewed and found negative. - Medication Medications: Active Medications Generic Name Dose Route Start Last Admin Trade Name Freq PRN Reason Stop Dose Admin Acetaminophen 1,000 mg 12/20/18 14:59 12/21/18 12:43 Tylenol PO 1,000 mg Q6H PRN Administration Mild Pain (1-3) Atorvastatin Calcium 40 mg 12/22/18 09:00 12/22/18 08:47 Lipitor PO 40 mg DAILY TAMMY Administration Carvedilol 6.25 mg 12/22/18 09:00 12/22/18 08:47 Coreg PO 6.25 mg BID TAMMY Administration Gabapentin 300 mg 12/22/18 09:00 12/22/18 08:47 Neurontin PO 300 mg BID TAMMY Administration Hydralazine HCl 10 mg 12/20/18 14:59 12/22/18 08:22 Apresoline SLOW IVP 10 mg Q4H PRN Administration SBP > 180 and HR < 70 Sodium Chloride 1,000 mls @ 100 mls/hr 12/20/18 15:00 12/22/18 02:24 Normal Saline 0.9% IV 1,000 mls .Q10H TAMMY Administration Pantoprazole Sodium 80 mg/ 100 mls @ 10 mls/hr 12/20/18 16:15 12/22/18 03:23 Sodium Chloride IVPB 100 mls INF TAMMY Administration Insulin Human Lispro 0 units 12/20/18 14:59 12/21/18 16:39 Humalog SC 4 unit .MILD SLIDING SCALE PRN Administration Mild Correctional Scale Labetalol HCl 10 mg 12/20/18 23:18 12/21/18 08:49 Normodyne SLOW IVP 10 mg Q4H PRN Administration Systolic BP > 180 Lisinopril 5 mg 12/22/18 09:00 12/22/18 08:47 Zestril PO 5 mg DAILY TAMMY Administration Ondansetron HCl 4 mg 12/20/18 14:59 12/21/18 09:55 Zofran IVP 4 mg Q6H PRN Administration Nausea/Vomiting Paroxetine HCl 30 mg 12/22/18 09:00 12/22/18 08:46 Paxil PO 30 mg DAILY TAMMY Administration Promethazine HCl 12.5 mg 12/21/18 08:42 12/21/18 21:06 Phenergan IVPB 12.5 mg Q6H PRN Administration Nausea Saccharomyces Boulardii 250 mg 12/22/18 09:00 12/22/18 08:47 Florastor PO 250 mg DAILY TAMMY Administration Sodium Bicarbonate 650 mg 12/22/18 09:00 12/22/18 08:47 Bicarbonate, Sodium PO 650 mg TID TAMMY Administration - Exam awake alert (Still makes some occasional wretching sounds.) Neck: supple, symmetric, no JVD, no Thyromegaly, no lymphadenopathy, no carotid bruit Heart: RRR, no murmur, no gallops, no rubs, normal peripheral pulses Respiratory: rales (Left base.) Gastrointestinal: soft, non-distended, normal bowel sounds, no palpable masses, tender to palpation (Says it is mild and she cannot localize it.) Extremities: no cyanosis, no clubbing, no edema Musculoskeletal: normal tone Psychiatric: normal affect Hosp A/P (1) Duodenal ulcer disease Status: Acute (2) Upper GI bleed Code(s): K92.2 - GASTROINTESTINAL HEMORRHAGE, UNSPECIFIED Status: Acute (3) Clostridioides difficile infection Code(s): A49.8 - OTHER BACTERIAL INFECTIONS OF UNSPECIFIED SITE Status: Acute (4) CAD (coronary artery disease) Code(s): I25.10 - ATHSCL HEART DISEASE OF [place] CORONARY ARTERY W/O ANG PCTRS Status: Chronic Qualifiers: Coronary Disease-Associated Artery/Lesion type: bypass graft [place] vs. transplanted heart: [place] heart Associated angina: without angina Qualified Code(s): I25.810 - Atherosclerosis of coronary artery bypass graft(s) without angina pectoris (5) DM type 2 (diabetes mellitus, type 2) Status: Chronic Qualifiers: Diabetes mellitus truck terminal manager insulin use: without truck terminal manager use Diabetes mellitus complication status: with kidney complications Diabetes mellitus complication detail: with chronic kidney disease Chronic kidney disease stage : stage 4 (severe) Qualified Code(s): E11.22 - Type 2 diabetes mellitus with diabetic chronic kidney disease; N18.4 - Chronic kidney disease, stage 4 (severe ) (6) HLD (hyperlipidemia) Code(s): E78.5 - HYPERLIPIDEMIA, UNSPECIFIED Status: Chronic (7) HTN (hypertension) Code(s): I10 - ESSENTIAL (PRIMARY) HYPERTENSION Status: Chronic Qualifiers: Hypertension type: essential hypertension Qualified Code(s): I10 - Essential (primary) hypertension (8) Nausea Code(s): R11.0 - NAUSEA Status: Acute (9) CKD (chronic kidney disease), stage IV Code(s): N18.4 - CHRONIC KIDNEY DISEASE, STAGE 4 (SEVERE) Status: Acute (10) Acute blood loss anemia Code(s): D62 - ACUTE POSTHEMORRHAGIC ANEMIA Status: Acute - Plan Still has some nausea. Still passing some liquid greenish-brown stools. Resuming home meds. Includes Vancomycin for C diff. Hold glipizide until taking po's better. Continue Sliding scale. Clears. CXR for left basilar rales. IS. CBC.
[2018-12-22 10:12] LABS: #Eosinphils 0.1 thou/uL (0.0-0.7); #Lymphocytes 0.8 thou/uL (1.20-3.40); #Monocytes 0.9 thou/uL (0.11-0.59); #Neutrophils 16.8 thou/uL (1.40-6.50); %Basophils 0.1 % (0.0-1.0); %Eosinophils 0.4 % (0.0-10.0); %Lymphocytes 4.3 % (21.0-51.0); %Monocytes 4.8 % (0.0-10.0); %Neutrophils 90.4 % (42.0-75.0); Hemoglobin 8.1 g/dL (12.0-16.0); Mean Corpuscular HGB CONC 32.7 g/dL (32.0-36.0); Mean Corpuscular Hemoglobin 29.2 pg (27.0-31.0); Mean Corpuscular Volume 89.2 fL (78.0-98.0); Mean Platelet Volume 6.4 fL (7.4-10.4); Platelet Count 397 thou/uL (130-400); RBC Distribution Width 14.3 % (11.5-14.5); Red Blood Cell (RBC) Count 2.76 mill/uL (4.20-5.40); White Blood Cell (WBC) Count 18.5 thou/uL (4.8-10.8)
[2018-12-22 10:31] LABS: Anion Gap 16 mmol/L (10-20); BUN (Urea Nitrogen) 47 mg/dL (9.8-20.1); Calc. Creatinine Clearance 48 mL/min (70-130); Calcium 8.7 mg/dL (7.8-10.44); Carbon Dioxide 16 mmol/L (23-31); Chloride 115 mmol/L (98-107); Estimated GFR-MDRD 31; Glucose 232 mg/dL (80-115); Potassium 4.2 mmol/L (3.5-5.1); Sodium 143 mmol/L (136-145)
[2018-12-22] MEDS: HumaLOG 300 UNITS/3 ML VIAL SC PRN ×2 (10:40→16:01)
--- NOTE | 2018-12-22 13:36 | RAD ---
PORTABLE CHEST 1 VIEW: Date: 12/22/18 Time: 1256 hours HISTORY: Left basilar rales. FINDINGS: Comparison made with exam of 12/10/18. There are changes of median sternotomy. The heart size is normal. The aorta is tortuous. No lobar con solidation, pneumothoraces, or pleural effusions are seen. Chronic changes are again noted. IMPRESSION: No acute process. POS: [facility]
[2018-12-22] MEDS ORDERED: Sodium Chloride 0.9% (PF) 10 ML VIAL FS PRN (16:29)
[2018-12-22] MEDS: Pantoprazole 40 MG VIAL IVP SCH (20:41)
[2018-12-23] MEDS: Sodium Chloride 0.9% 1,000 ML IV SCH ×3 (00:01→21:12)
[2018-12-23] MEDS: Vancomycin HCl 25 MG/ML Oral PO SCH ×4 (01:58→20:25)
[2018-12-23 03:21] LABS: #Eosinphils 0.1 thou/uL (0.0-0.7); #Lymphocytes 1.2 thou/uL (1.20-3.40); #Monocytes 1.3 thou/uL (0.11-0.59); #Neutrophils 14.6 thou/uL (1.40-6.50); %Basophils 0.1 % (0.0-1.0); %Eosinophils 0.6 % (0.0-10.0); %Monocytes 7.3 % (0.0-10.0); %Neutrophils 85.1 % (42.0-75.0); Hemoglobin 8.2 g/dL (12.0-16.0); Mean Corpuscular Hemoglobin 30.7 pg (27.0-31.0); Mean Corpuscular Volume 90.2 fL (78.0-98.0); Mean Platelet Volume 6.3 fL (7.4-10.4); Platelet Count 393 thou/uL (130-400); RBC Distribution Width 14.7 % (11.5-14.5); Red Blood Cell (RBC) Count 2.67 mill/uL (4.20-5.40); White Blood Cell (WBC) Count 17.2 thou/uL (4.8-10.8)
[2018-12-23 03:45] LABS: ALT (SGPT) 17 U/L (8-55); AST (SGOT) 17 U/L (5-34); Alkaline Phosphatase 365 U/L (40-150); Anion Gap 13 mmol/L (10-20); BUN (Urea Nitrogen) 46 mg/dL (9.8-20.1); Bilirubin, Direct 0.5 mg/dL (0.1-0.3); Bilirubin, Total 0.6 mg/dL (0.2-1.2); Calc. Creatinine Clearance 47 mL/min (70-130); Calcium 8.5 mg/dL (7.8-10.44); Carbon Dioxide 18 mmol/L (23-31); Chloride 114 mmol/L (98-107); Estimated GFR-MDRD 30; Glucose 175 mg/dL (80-115); Potassium 4.1 mmol/L (3.5-5.1); Protein, Total 6.5 g/dL (6.0-8.3); Sodium 141 mmol/L (136-145)
[2018-12-23] MEDS: HumaLOG 300 UNITS/3 ML VIAL SC PRN ×2 (06:06→11:17)
[2018-12-23] MEDS: PARoxetine 20 MG TAB PO SCH (08:40)
[2018-12-23] MEDS: Carvedilol 6.25 MG TAB PO SCH ×2 (08:40→20:25)
[2018-12-23] MEDS: Sodium Bicarbonate Tab 325 MG TAB PO SCH ×3 (08:40→20:25)
[2018-12-23] MEDS: Atorvastatin Calcium 40 MG TAB PO SCH (08:41)
[2018-12-23] MEDS: Gabapentin 300 MG CAP PO SCH ×2 (08:41→20:26)
[2018-12-23] MEDS: Pantoprazole 40 MG VIAL IVP SCH ×2 (08:41→20:26)
[2018-12-23] MEDS: Lisinopril 5 MG TAB PO SCH (08:41)
[2018-12-23] MEDS: Saccharomyces boulardii 250 MG CAP PO SCH (09:16)
[2018-12-23] MEDS: Ondansetron PF 4 MG/2 ML Vial IVP PRN (09:16)
--- NOTE | 2018-12-23 09:53 | CON ---
DATE OF CONSULTATION: REASON FOR CONSULT: GI hemorrhage. HISTORY OF PRESENT ILLNESS: I was called by the nurse about 30 minutes ago that Ms. Webb was having GI hemorrhage in the floor ongoing. Apparently, a consult had been put in for me around 3 o'clock this afternoon, but no one had called to me. The patient was here in the hospital recently from 12/10 to 12/18 with acute on chronic CHF. She had acute kidney injury and also had development of ascites, which was tapped. She was seen by partner, Dr. Bruce Magallanes. They felt that the ascites was probably from right heart failure and passive congestion. This ascitic fluid did have some white blood cells, and she was treated empirically for SBP. She had some diarrhea and had a stool for C difficile antigen, but negative for toxin and was treated empirically anyway. Ultimately, she was discharged back to rehab or swing bed in [place] and was there for only 2 days. There, she was noted to have bleeding, but Dr. López reported bright red blood per rectum about 100 mL and she was sent back to this facility. She was never hypotensive there. Reviewing Dr. López's note, she has been having black tarry stools and had some coffee-grounds emesis as well. She had a drop in hemoglobin from 8.9 to 7.9. Here, the nurse reports she had about 3 episodes of emesis about 200 mL a piece and then after an NG tube was placed, there was 400 mL of maroon blood gastric return. She has also had maroon blood per rectum. Here, on arrival, her hemoglobin was 7.6. She has received her first unit of blood. Her platelet count was 326, white count was 12.6. In talking to the patient, she does not really understand what is going on. She states she has been having diarrhea, but does not understand that there has been blood in it. She states that she does not have any abdominal pain. She does not know how much vomiting she has had or how much bleeding she has had. She denies any shortness of breath. PAST MEDICAL HISTORY: CHF, ejection fraction about 30%; severe calcified mitral valve; coronary artery disease with previous bypass; diabetes; previous left carotid endarterectomy; hysterectomy; left elbow surgery; right forefoot amputation; recent positive stool for C difficile antigen, negative for toxin, recent ascitic fluid positive for SBP. MEDICATIONS: 1. Tylenol. 2. D5 normal saline at 100 mL an hour. 3. Protonix drip. 4. Zofran p.r.n. 5. Insulin sliding scale. 6. Dextrose. Home medications: 1. Glipizide. 2. Vancomycin. 3. Sodium bicarbonate. 4. Saccharomyces boulardii. 5. Protonix. 6. Paroxetine. 7. Ondansetron. 8. Lisinopril. 9. Gabapentin. 10. Furosemide. 11. Famotidine. 12. Carvedilol. 13. Atorvastatin. Apparently, she was on some Lovenox at the other facility. PHYSICAL EXAMINATION: GENERAL: The patient is in bed. She is pale. She is stable. She is in no distress. She is very pale. VITAL SIGNS: Pulse 105, temperature 99.4, blood pressure 150/61, . HEENT: She is nonicteric. LUNGS: Clear. HEART: Regular rate and rhythm without clicks or murmurs. ABDOMEN: Soft. It is protuberant. There is fluid wave. There is no shifting dullness. There is no rebound or guarding. EXTREMITIES: No clubbing, cyanosis, or edema. RECTAL: Reveals maroon to melenic stool. NG tube shows red stool. LABORATORY DATA: White count 12.6, hemoglobin 7.9, and platelet count 362. INR is 1.5. Sodium 142, potassium 4.9, BUN and creatinine are 48 and 1.73. This is very similar to what they were at her previous admission. AST is 88, ALT is 46, alkaline phosphatase is 721, albumin 3.1, and protein 6.9. Hepatitis A, B, and C are negative. IMAGING DATA: Abdominal ultrasound earlier this month revealed cholelithiasis with contracted gallbladder. No signs of acute cholecystitis. No ductal dilatations, moderate volume ascites, coarsened liver. CT at that time showed the same. ASSESSMENT: This is a chronically-ill 68-year-old female, who was recently in the hospital with Clostridium difficile, ascites, and decompensation of her heart failure, who now is having gastrointestinal hemorrhage, etiology of which is unclear. It seems to be more pronounced here since arrival back from the swing bed at [place]. RECOMMENDATIONS: IV Protonix. Emergent endoscopy. I discussed with the patient and the patient's daughter the risks, benefits, and possible complications of endoscopy including perforation, bleeding, reaction to medication, aspiration, and possibility of as she is very ill and is bleeding rapidly and has poor reserve. Job ID: [id number]
--- NOTE | 2018-12-23 09:58 | CON ---
DATE OF CONSULTATION: HISTORY OF PRESENT ILLNESS: Carole Webb is a 68-year-old, [place] female patient, who was transferred from [place] with GI bleed. She apparently had history of Clostridium difficile colitis and GI bleed. She underwent an endoscopy last night and the bleeding ulcer was cauterized. She remains in the ICU. Except for nausea, she denies any difficulty breathing, pain, or discomfort. She is a nonsmoker. PAST MEDICAL HISTORY: Previous extensive history has included renal failure, hypertension, lipidemia, diabetes, colitis, apparently CHF. PAST SURGICAL HISTORY: Left carotid surgery, hysterectomy, elbow surgery. She is from [place] and sees Dr. López there. Additionally, she has elbow surgery, amputation for gangrenous midfoot, previous . HOME MEDICATIONS: Include; 1. Florastor 250. 2. Lisinopril 5. 3. Glucotrol 2.5. 4. Lasix 40. 5. Coreg 6.25. 6. Zantac. 7. Paxil 30. 8. Iron. 9. Gabapentin 300. 10. Vancomycin 125 mg four times a day. SOCIAL HISTORY: Alcohol, none. Tobacco, none. REVIEW OF SYSTEMS: Otherwise unremarkable. PHYSICAL EXAMINATION: VITAL SIGNS: Pulse 92, saturations 100% on room air, blood pressure 130/70, respirations 10. I's and O's have been good. CHEST: Reveals decreased breath sounds. No wheezing. CARDIAC: Normal S1 and S2. No gallops. ABDOMEN: No masses. LABORATORY DATA: Creatinine 1.3. GFR is 40. Hemoglobin and hematocrit are stable at 9 and 27, platelet count is normal. IMPRESSION: 1. Gastrointestinal bleed, status post endoscopy. 2. Clostridium difficile colitis. 3. Renal failure. PLAN: She is stable at this stage. We will continue present supportive care. We will transfer out of ICU when stable. Consultation note 70 minutes, 50% direct patient care. Job ID: [id number]
--- NOTE | 2018-12-23 11:50 | ULT ---
PREPROCEDURE DIAGNOSIS: Ascites POST PROCEDURE DIAGNOSIS: Same PROCEDURE: Ultrasound-guided paracentesis TRAINING ENGINEER: Vaishali ANESTHESIA: 8 mL of buffered 1% lidocaine. SPECIMEN: 4 L of straw-colored fluid TECHNIQUE: Prior to the procedure, the risks and benefits of an ultrasound guided paracentesis were explained to the patient which consented fully to the procedure. The area of the largest fluid collection was seen in the right lower quadrant of the abdomen. This a claudy was prepped and draped in the usual sterile fashion. Lidocaine was used to anesthetize the skin and soft tissues down towards the peritoneal cavity. The p eritoneum was anesthetized. A small skin incision was made for passage of the Spare to [place] needle and catheter. This device was then placed using ultrasound guidance into the peritoneal cavity. The needle was removed after return of fluid. The catheter was then connected to multiple Vacutainer bottles. A total of 4 L was removed. No residual fluid is seen in this region of the peritoneal cavity. IMPRESSION: Status post successful ultrasound-guided paracentesis
[2018-12-23 13:00] LABS: Body Fluid Source Paracentesis Fluid
[2018-12-23 13:01] LABS: BF Color Yellow; Clarity Hazy (Clear); RBC Background Count 0.001; Tube # EDTA; WBC/NonHematic-Auto 398 /cumm
--- NOTE | 2018-12-23 13:08 | PRG ---
DATE OF SERVICE: 12/20/2018 ADDENDUM: I contacted Anesthesia services about the emergent nature of endoscopy for GI hemorrhage for Ms. Webb and cleared of medical emergency at 6 p.m. Job ID: [id number]
[2018-12-23 13:31] LABS: BF RBC Count - Manual 5250 /cumm
[2018-12-23 13:34] LABS: BF Segmented Neutrophils 54 %; Cell Count Non Hematic 40 %; Lymphocytes 6 %
--- NOTE | 2018-12-23 15:41 | PRG ---
DATE OF SERVICE: 12/22/2018 SUBJECTIVE: Ms. Webb has a lot of gagging and a little retching overnight and less so this morning. She is pretty somnolent, mildly confused. She has had no further bleeding. OBJECTIVE: VITAL SIGNS: temperature is 98.1. Urine output 1900 mL as of 7:00 this morning, 400 mL so far today. LUNGS: Clear. HEART: Regular rate and rhythm. ABDOMEN: Slightly protuberant. There is shifting dullness in her abdomen. EXTREMITIES: Reveal some edema. LABORATORY DATA: Sodium 143, potassium 4.2, BUN and creatinine are 47 and 1.66, glucose 232. Albumin was 3.1 yesterday, hemoglobin 8.1, today white count 18,000, and platelet count 397. ASSESSMENT: 1. Gastrointestinal bleed, duodenal ulcers, likely exacerbated by Lovenox, off that now. No active bleeding now. 2. Ascites, seemingly non-portal hypertensive based on tap from 12/14 with fluid albumin of 2.7, serum to ascitic albumin gradient of 0.6, and a total protein in the fluid of 4.8 . She had a white count of at that time as well. cardiac ascites, I am not sure if she is in portal hypertensive ascites. 3. Gagging, unclear etiology. 4. Heart failure. RECOMMENDATIONS: 1. We can change Protonix back to IV as I am not sure how reliable she is taking her medicine. 2. I have talked with Dr. Alvarez, agree with getting her started on maintenance medications. 3. Avoid all anticoagulation. 4. We will set her up for repeat paracentesis tomorrow to evaluate for SBP again and to get some cytology on that fluid. 5. We will repeat stool for C diff. Job ID: [id number]
[2018-12-23] MEDS: Labetalol HCl 100 MG/20 ML VIAL SLOW IVP PRN (16:36)
--- NOTE | 2018-12-23 19:23 | PDOC.HOSPP ---
- Subjective Subjective: Feeling a little better today. Nausea has resolved. No abdominal pain. - Objective Vital Signs & Weight: Vital Signs (12 hours) Temp Pulse Pulse Pulse BP BP BP 12/23/18 16:36 79 185/87 H 12/23/18 12:00 97.9 F 12/23/18 09:10 82 78 177/84 H 177/86 H 12/23/18 08:41 79 172/67 H 12/23/18 08:40 177/86 H 12/23/18 08:00 Pulse Ox 12/23/18 16:36 12/23/18 12:00 12/23/18 09:10 12/23/18 08:41 12/23/18 08:40 12/23/18 08:00 93 L Weight Admit Weight 207 lb 9.6 oz Weight 207 lb 9.6 oz Most Recent Monitor Data Heart Rate from ECG 66 NIBP 160/77 NIBP BP-Mean 104 Respiration from ECG 20 SpO2 92 I&O: 12/22/18 12/23/18 12/24/18 06:59 06:59 06:59 Intake Total 2736 3755 370 Output Total 1900 1300 200 Balance 836 2455 170 Result Diagrams: 12/23/18 03:12 12/23/18 03:12 Additional Labs: Accuchecks 12/23/18 12/23/18 12/23/18 16:32 11:18 06:06 POC Glucose 136 H 185 H 174 H 12/22/18 20:46 POC Glucose 197 H ROS - Review of Systems All systems: All other ROS were reviewed and found negative. - Medication Medications: Active Medications Generic Name Dose Route Start Last Admin Trade Name Rojelio PRN Reason Stop Dose Admin Acetaminophen 1,000 mg 12/20/18 14:59 12/21/18 12:43 Tylenol PO 1,000 mg Q6H PRN Administration Mild Pain (1-3) Atorvastatin Calcium 40 mg 12/22/18 09:00 12/23/18 08:41 Lipitor PO 40 mg DAILY TAMMY Administration Carvedilol 6.25 mg 12/22/18 09:00 12/23/18 08:40 Coreg PO 6.25 mg BID TAMMY Administration Gabapentin 300 mg 12/22/18 09:00 12/23/18 08:41 Neurontin PO 300 mg BID TAMMY Administration Hydralazine HCl 10 mg 12/20/18 14:59 12/22/18 15:06 Apresoline SLOW IVP 10 mg Q4H PRN Administration SBP > 180 and HR < 70 Sodium Chloride 1,000 mls @ 100 mls/hr 12/20/18 15:00 12/23/18 14:30 Normal Saline 0.9% IV Not Given .Q10H TAMMY Insulin Human Lispro 0 units 12/20/18 14:59 12/23/18 11:17 Humalog SC 2 unit .MILD SLIDING SCALE PRN Administration Mild Correctional Scale Labetalol HCl 10 mg 12/20/18 23:18 12/23/18 16:36 Normodyne SLOW IVP 10 mg Q4H PRN Administration Systolic BP > 180 Lisinopril 5 mg 12/22/18 09:00 12/23/18 08:41 Zestril PO 5 mg DAILY TAMMY Administration Ondansetron HCl 4 mg 12/20/18 14:59 12/23/18 09:16 Zofran IVP 4 mg Q6H PRN Administration Nausea/Vomiting Pantoprazole Sodium 40 mg 12/22/18 21:00 12/23/18 08:41 Protonix IVP 40 mg Q12HR TAMMY Administration Paroxetine HCl 30 mg 12/22/18 09:00 12/23/18 08:40 Paxil PO 30 mg DAILY TAMMY Administration Promethazine HCl 12.5 mg 12/21/18 08:42 12/21/18 21:06 Phenergan IVPB 12.5 mg Q6H PRN Administration Nausea Sodium Bicarbonate 650 mg 12/22/18 09:00 12/23/18 14:29 Bicarbonate, Sodium PO 650 mg TID TAMMY Administration Vancomycin HCl 125 mg 12/22/18 08:00 12/23/18 14:29 First Vancomycin PO 125 mg 0200,0800,1400,2000 TAMMY Administration - Exam Heart: RRR, no murmur, no gallops, no rubs, normal peripheral pulses Respiratory: CTAB, no wheezes, no rales, no ronchi, normal chest expansion, no tachypnea, normal percussion Gastrointestinal: soft, non-tender, non-distended, normal bowel sounds, no palpable masses, no hepatomegaly, no splenomegaly, no bruit Skin: normal turgor, no lesions, no rashes Neurological: no focal deficits Musculoskeletal: normal tone Psychiatric: normal affect, normal behavior, A&O x 3 Hosp A/P (1) Duodenal ulcer disease Status: Acute (2) Upper GI bleed Code(s): K92.2 - GASTROINTESTINAL HEMORRHAGE, UNSPECIFIED Status: Acute (3) Clostridioides difficile infection Code(s): A49.8 - OTHER BACTERIAL INFECTIONS OF UNSPECIFIED SITE Status: Acute (4) CAD (coronary artery disease) Code(s): I25.10 - ATHSCL HEART DISEASE OF [place] CORONARY ARTERY W/O ANG PCTRS Status: Chronic Qualifiers: Coronary Disease-Associated Artery/Lesion type: bypass graft [place] vs. transplanted heart: [place] heart Associated angina: without angina Qualified Code(s): I25.810 - Atherosclerosis of coronary artery bypass graft(s) without angina pectoris (5) DM type 2 (diabetes mellitus, type 2) Status: Chronic Qualifiers: Diabetes mellitus jail insulin 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 Diabetes mellitus complication status: with kidney complications Diabetes mellitus complication detail: with chronic kidney disease Chronic kidney disease stage : stage 4 (severe) Qualified Code(s): E11.22 - Type 2 diabetes mellitus with diabetic chronic kidney disease; N18.4 - Chronic kidney disease, stage 4 (severe ) (6) HLD (hyperlipidemia) Code(s): E78.5 - HYPERLIPIDEMIA, UNSPECIFIED Status: Chronic (7) HTN (hypertension) Code(s): I10 - ESSENTIAL (PRIMARY) HYPERTENSION Status: Chronic Qualifiers: Hypertension type: essential hypertension Qualified Code(s): I10 - Essential (primary) hypertension (8) Nausea Code(s): R11.0 - NAUSEA Status: Acute (9) CKD (chronic kidney disease), stage IV Code(s): N18.4 - CHRONIC KIDNEY DISEASE, STAGE 4 (SEVERE) Status: Acute (10) Acute blood loss anemia Code(s): D62 - ACUTE POSTHEMORRHAGIC ANEMIA Status: Acute (11) Leukocytosis Code(s): D72.829 - ELEVATED WHITE BLOOD CELL COUNT, UNSPECIFIED Status: Acute - Plan Had paracentesis today. Fluid studies pending. Looking better overall. Can move to [facility] anytime. Persistent leukocytosis without clear source. GI bleed appears stable. Increase activity. Continue treatment for antigen positive, toxin negative C diff.
--- NOTE | 2018-12-23 22:52 | PRG ---
DATE OF SERVICE: 12/23/2018 SUBJECTIVE: Ms. Webb is sleepy earlier today when fall asleep when not stimulated, but she would wake up and answer her name and nursing reports that she participated well with physical therapy. OBJECTIVE: VITAL SIGNS: Temperature 98.0, blood pressure 145/69, pulse 77. GENERAL: She was in no acute distress. Again, drowsy and would fall asleep when not stimulated. HEENT: Eyes, no scleral icterus. LUNGS: Clear to auscultation bilaterally. HEART: Regular rate and rhythm without murmur. ABDOMEN: Soft, nontender, nondistended. Bowel sounds are present. Nontender and soft after paracentesis today. EXTREMITIES: Trace lower extremity edema. LABORATORY DATA: Hemoglobin is 8.2, white blood cell count 17.2. Bilirubin 0.6, AST 17, ALT 17, alkaline phosphatase 365, creatinine 1.71 with BUN of 46, ammonia was 24, albumin 3.0. Her fluid white blood cell count was 398 with 54% neutrophils. Fluid total protein point as 4.0, fluid albumin is pending. IMPRESSION: 1. Anemia of acute blood loss, stable. 2. Gastrointestinal bleed secondary to duodenal ulcer, status post electrocautery. This is clinically resolved for now. 3. Ascites. I still suspect this is primarily secondary to congestive hepatopathy. Her serum ascites albumin gradient was less than 1.1 when she underwent paracentesis during last hospital stay. The fact that she had spontaneous bacterial peritonitis at that time could have altered the protein concentration such that from a diagnostic algorithm standpoint, I am not sure that was fully high school admissions representative of the etiology. Paracentesis was repeated today and a new SAAG will be calculated. 4. Encephalopathy. Her ammonia is not elevated. 5. Cardiomyopathy. 6. Clostridium difficile positive stool with previous hospitalization. She was antigen positive, but toxin negative. Repeat Clostridium difficile today is negative. RECOMMENDATIONS: 1. Her current fluid studies are negative for SBP now. We will await her fluid albumin to calculate the serum-ascites albumin gradient. 2. Await fluid cytology. 3. Once she completes a complete 10 day course of vancomycin started during the previous hospital stay, then the oral vancomycin can be discontinued. 4. Proton pump inhibitor twice daily. Job ID: [id number]
[2018-12-24] MEDS: Vancomycin HCl 25 MG/ML Oral PO SCH ×4 (03:01→20:14)
[2018-12-24 04:09] LABS: #Basophils 0.1 thou/uL (0.0-0.2); #Eosinphils 0.5 thou/uL (0.0-0.7); #Lymphocytes 1.2 thou/uL (1.20-3.40); #Monocytes 1.1 thou/uL (0.11-0.59); #Neutrophils 10.5 thou/uL (1.40-6.50); %Basophils 0.5 % (0.0-1.0); %Eosinophils 3.9 % (0.0-10.0); %Lymphocytes 9.1 % (21.0-51.0); %Monocytes 8.5 % (0.0-10.0); %Neutrophils 78.1 % (42.0-75.0); Hemoglobin 8.6 g/dL (12.0-16.0); Mean Corpuscular HGB CONC 32.8 g/dL (32.0-36.0); Mean Corpuscular Hemoglobin 29.3 pg (27.0-31.0); Mean Corpuscular Volume 89.5 fL (78.0-98.0); Mean Platelet Volume 6.7 fL (7.4-10.4); Platelet Count 321 thou/uL (130-400); RBC Distribution Width 15.3 % (11.5-14.5); Red Blood Cell (RBC) Count 2.92 mill/uL (4.20-5.40); White Blood Cell (WBC) Count 13.5 thou/uL (4.8-10.8)
[2018-12-24 04:45] LABS: Anion Gap 15 mmol/L (10-20); BUN (Urea Nitrogen) 44 mg/dL (9.8-20.1); Calc. Creatinine Clearance 45 mL/min (70-130); Calcium 8.2 mg/dL (7.8-10.44); Carbon Dioxide 17 mmol/L (23-31); Chloride 114 mmol/L (98-107); Estimated GFR-MDRD 29; Glucose 144 mg/dL (80-115); Potassium 4.1 mmol/L (3.5-5.1); Sodium 140 mmol/L (136-145)
[2018-12-24] MEDS: Sodium Bicarbonate Tab 325 MG TAB PO SCH ×3 (08:31→20:14)
[2018-12-24] MEDS: Gabapentin 300 MG CAP PO SCH ×2 (08:31→20:14)
[2018-12-24] MEDS: PARoxetine 20 MG TAB PO SCH (08:31)
[2018-12-24] MEDS: Atorvastatin Calcium 40 MG TAB PO SCH (08:31)
[2018-12-24] MEDS: Pantoprazole 40 MG VIAL IVP SCH ×2 (08:31→20:14)
[2018-12-24] MEDS: Carvedilol 6.25 MG TAB PO SCH ×2 (08:31→20:14)
[2018-12-24] MEDS: Lisinopril 5 MG TAB PO SCH (08:32)
[2018-12-24] MEDS: Saccharomyces boulardii 250 MG CAP PO SCH (08:32)
[2018-12-24] MEDS: Sodium Chloride 0.9% 1,000 ML IV SCH (08:36)
[2018-12-24] MEDS: Ondansetron PF 4 MG/2 ML Vial IVP PRN (10:02)
[2018-12-24] MEDS: HumaLOG 300 UNITS/3 ML VIAL SC PRN ×2 (11:13→16:17)
[2018-12-24] MEDS: Acetaminophen 500 MG TAB PO PRN (15:13)
--- NOTE | 2018-12-24 21:41 | PRG ---
DATE OF SERVICE: 12/24/2018 SUBJECTIVE: Ms. Webb has had no bowel movements today. She had 3 small black stools last night. OBJECTIVE: VITAL SIGNS: Temperature 98.3, blood pressure 107/52, and pulse 71. GENERAL: She is in no acute distress. She is alert and oriented x3. She is much more alert and definitely more oriented today compared to yesterday. She has had no nausea, vomiting or abdominal pain today. LUNGS: Clear to auscultation bilaterally. HEART: Regular rate and rhythm. ABDOMEN: Soft, nontender, and nondistended. Bowel sounds are present. EXTREMITIES: No lower extremity edema. LABORATORY DATA: Hemoglobin is 8.6. IMPRESSION: 1. Gastrointestinal bleed secondary to duodenal ulcer. 2. Anemia of acute blood loss, which is stabilized. 3. Ascites. Suspect this is primarily secondary to congestive hepatopathy. Fluid studies have been repeated and are negative for SBP. We will recalculate her serum albumin ascites gradient when we get these labs back. 4. Cardiomyopathy. 5. Encephalopathy, improved. RECOMMENDATIONS: 1. Continue proton pump inhibitor twice daily. 2. Await fluid cytology and albumin. The cytology is actually back and is negative for malignant cells. 3. Anticipate possible transfer to shelter tomorrow. Job ID: [id number]
[2018-12-25] MEDS: Sodium Chloride 0.9% 1,000 ML IV SCH ×2 (01:47→08:54)
[2018-12-25] MEDS: Vancomycin HCl 25 MG/ML Oral PO SCH ×4 (02:27→20:44)
[2018-12-25] MEDS: PARoxetine 20 MG TAB PO SCH (08:48)
[2018-12-25] MEDS: Gabapentin 300 MG CAP PO SCH ×2 (08:48→20:44)
[2018-12-25] MEDS: Sodium Bicarbonate Tab 325 MG TAB PO SCH ×3 (08:48→20:43)
[2018-12-25] MEDS: Atorvastatin Calcium 40 MG TAB PO SCH (08:49)
[2018-12-25] MEDS: Carvedilol 6.25 MG TAB PO SCH ×2 (08:49→20:43)
[2018-12-25] MEDS: Saccharomyces boulardii 250 MG CAP PO SCH (08:49)
[2018-12-25] MEDS: Lisinopril 5 MG TAB PO SCH (08:49)
[2018-12-25] MEDS: Pantoprazole 40 MG VIAL IVP SCH ×3 (08:50→20:50)
[2018-12-25] MEDS: HumaLOG 300 UNITS/3 ML VIAL SC PRN ×3 (11:58→20:45)
--- NOTE | 2018-12-25 15:10 | PDOC.HOSPP ---
- Subjective Subjective: Feeling better in general. Nausea has resolved. No new complaints. - Objective Vital Signs & Weight: Vital Signs (12 hours) Temp Pulse Resp BP BP Pulse Ox 12/25/18 11:51 97.9 F 68 18 139/60 95 12/25/18 10:00 98.0 F 81 17 149/75 H 97 12/25/18 08:49 77 122/53 L 12/25/18 08:00 98.6 F 98 12/25/18 04:00 98.0 F Weight Admit Weight 207 lb 7.28 oz Weight 207 lb 9.6 oz Most Recent Monitor Data Heart Rate from ECG 79 NIBP 122/53 NIBP BP-Mean 76 Respiration from ECG 22 SpO2 94 I&O: 12/24/18 12/25/18 12/26/18 06:59 06:59 06:59 Intake Total 1213 2670 300 Output Total 200 895 635 Balance 1013 1772 -250 Result Diagrams: 12/24/18 03:27 12/24/18 03:27 Additional Labs: Accuchecks 12/25/18 12/25/18 12/25/18 11:56 07:50 06:22 POC Glucose 252 H 142 H 138 H 12/24/18 12/24/18 21:23 16:17 POC Glucose 177 H 179 H ROS - Review of Systems All systems: All other ROS were reviewed and found negative. - Medication Medications: Active Medications Generic Name Dose Route Start Last Admin Trade Name Freq PRN Reason Stop Dose Admin Acetaminophen 1,000 mg 12/20/18 14:59 12/24/18 15:13 Tylenol PO 1,000 mg Q6H PRN Administration Mild Pain (1-3) Atorvastatin Calcium 40 mg 12/22/18 09:00 12/25/18 08:49 Lipitor PO 40 mg DAILY TAMMY Administration Carvedilol 6.25 mg 12/22/18 09:00 12/25/18 08:49 Coreg PO 6.25 mg BID TAMMY Administration Gabapentin 300 mg 12/22/18 09:00 12/25/18 08:48 Neurontin PO 300 mg BID TAMMY Administration Hydralazine HCl 10 mg 12/20/18 14:59 12/22/18 15:06 Apresoline SLOW IVP 10 mg Q4H PRN Administration SBP > 180 and HR < 70 Insulin Human Lispro 0 units 12/20/18 14:59 12/25/18 11:58 Humalog SC 4 unit .MILD SLIDING SCALE PRN Administration Mild Correctional Scale Labetalol HCl 10 mg 12/20/18 23:18 12/23/18 16:36 Normodyne SLOW IVP 10 mg Q4H PRN Administration Systolic BP > 180 Lisinopril 5 mg 12/22/18 09:00 12/25/18 08:49 Zestril PO 5 mg DAILY TAMMY Administration Ondansetron HCl 4 mg 12/20/18 14:59 12/24/18 10:02 Zofran IVP 4 mg Q6H PRN Administration Nausea/Vomiting Pantoprazole Sodium 40 mg 12/22/18 21:00 12/25/18 08:50 Protonix IVP 40 mg Q12HR TAMMY Administration Paroxetine HCl 30 mg 12/22/18 09:00 12/25/18 08:48 Paxil PO 30 mg DAILY TAMMY Administration Promethazine HCl 12.5 mg 12/21/18 08:42 12/21/18 21:06 Phenergan IVPB 12.5 mg Q6H PRN Administration Nausea Saccharomyces Boulardii 250 mg 12/24/18 09:00 12/25/18 08:49 Florastor PO 250 mg DAILY TAMMY Administration Sodium Bicarbonate 650 mg 12/22/18 09:00 12/25/18 14:21 Bicarbonate, Sodium PO 650 mg TID TAMMY Administration Sodium Chloride 10 ml 12/22/18 16:29 12/25/18 08:50 Normal Saline Pf FS 10 ml PRN PRN Administration RECONSTITUTION Vancomycin HCl 125 mg 12/22/18 08:00 12/25/18 14:21 First Vancomycin PO 125 mg 0200,0800,1400,2000 TAMMY Administration - Exam NAD, awake alert Heart: RRR, no murmur, no gallops, no rubs, normal peripheral pulses Respiratory: CTAB, no wheezes, no rales, no ronchi, normal chest expansion, no tachypnea, normal percussion Gastrointestinal: soft, non-tender, non-distended, normal bowel sounds, no palpable masses, no hepatomegaly, no splenomegaly, no bruit Extremities: no cyanosis, no clubbing, no edema Skin: normal turgor Neurological: no focal deficits Musculoskeletal: normal tone Psychiatric: normal affect, normal behavior, A&O x 3 Hosp A/P (1) Duodenal ulcer disease Status: Acute (2) Upper GI bleed Code(s): K92.2 - GASTROINTESTINAL HEMORRHAGE, UNSPECIFIED Status: Acute (3) Clostridioides difficile infection Code(s): A49.8 - OTHER BACTERIAL INFECTIONS OF UNSPECIFIED SITE Status: Acute (4) CAD (coronary artery disease) Code(s): I25.10 - ATHSCL HEART DISEASE OF [place] CORONARY ARTERY W/O ANG PCTRS Status: Chronic Qualifiers: Coronary Disease-Associated Artery/Lesion type: bypass graft [place] vs. transplanted heart: [place] heart Associated angina: without angina Qualified Code(s): I25.810 - Atherosclerosis of coronary artery bypass graft(s) without angina pectoris (5) DM type 2 (diabetes mellitus, type 2) Status: Chronic Qualifiers: Diabetes mellitus intermodal truck driver insulin 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 Diabetes mellitus complication status: with kidney complications Diabetes mellitus complication detail: with chronic kidney disease Chronic kidney disease stage : stage 4 (severe) Qualified Code(s): E11.22 - Type 2 diabetes mellitus with diabetic chronic kidney disease; N18.4 - Chronic kidney disease, stage 4 (severe ) (6) HLD (hyperlipidemia) Code(s): E78.5 - HYPERLIPIDEMIA, UNSPECIFIED Status: Chronic (7) HTN (hypertension) Code(s): I10 - ESSENTIAL (PRIMARY) HYPERTENSION Status: Chronic Qualifiers: Hypertension type: essential hypertension Qualified Code(s): I10 - Essential (primary) hypertension (8) Nausea Code(s): R11.0 - NAUSEA Status: Acute (9) CKD (chronic kidney disease), stage IV Code(s): N18.4 - CHRONIC KIDNEY DISEASE, STAGE 4 (SEVERE) Status: Acute (10) Acute blood loss anemia Code(s): D62 - ACUTE POSTHEMORRHAGIC ANEMIA Status: Acute (11) Leukocytosis Code(s): D72.829 - ELEVATED WHITE BLOOD CELL COUNT, UNSPECIFIED Status: Acute - Plan Leukocytosis slightly improved. Afeb. No signs or symptoms of infection. Hgb stable. Paracentesis fluid not infected. Transfer out of unit when bed avail. Continue PPI. GI following.
--- NOTE | 2018-12-25 15:19 | PDOC.HOSPP ---
- Subjective Subjective: Feels better. Minimal nausea. Tolerating po's. - Objective Vital Signs & Weight: Vital Signs (12 hours) Temp Pulse Resp BP BP Pulse Ox 12/25/18 11:51 97.9 F 68 18 139/60 95 12/25/18 10:00 98.0 F 81 17 149/75 H 97 12/25/18 08:49 77 122/53 L 12/25/18 08:00 98.6 F 98 12/25/18 04:00 98.0 F Weight Admit Weight 207 lb 7.28 oz Weight 207 lb 9.6 oz Most Recent Monitor Data Heart Rate from ECG 79 NIBP 122/53 NIBP BP-Mean 76 Respiration from ECG 22 SpO2 94 I&O: 12/24/18 12/25/18 12/26/18 06:59 06:59 06:59 Intake Total 1213 2670 300 Output Total 200 895 635 Balance 1013 6281 -290 Result Diagrams: 12/24/18 03:27 12/24/18 03:27 Additional Labs: Accuchecks 12/25/18 12/25/18 12/25/18 11:56 07:50 06:22 POC Glucose 252 H 142 H 138 H 12/24/18 12/24/18 21:23 16:17 POC Glucose 177 H 179 H ROS - Review of Systems All systems: All other ROS were reviewed and found negative. - Medication Medications: Active Medications Generic Name Dose Route Start Last Admin Trade Name Freq PRN Reason Stop Dose Admin Acetaminophen 1,000 mg 12/20/18 14:59 12/24/18 15:13 Tylenol PO 1,000 mg Q6H PRN Administration Mild Pain (1-3) Atorvastatin Calcium 40 mg 12/22/18 09:00 12/25/18 08:49 Lipitor PO 40 mg DAILY TAMMY Administration Carvedilol 6.25 mg 12/22/18 09:00 12/25/18 08:49 Coreg PO 6.25 mg BID TAMMY Administration Gabapentin 300 mg 12/22/18 09:00 12/25/18 08:48 Neurontin PO 300 mg BID TAMMY Administration Hydralazine HCl 10 mg 12/20/18 14:59 12/22/18 15:06 Apresoline SLOW IVP 10 mg Q4H PRN Administration SBP > 180 and HR < 70 Insulin Human Lispro 0 units 12/20/18 14:59 12/25/18 11:58 Humalog SC 4 unit .MILD SLIDING SCALE PRN Administration Mild Correctional Scale Labetalol HCl 10 mg 12/20/18 23:18 12/23/18 16:36 Normodyne SLOW IVP 10 mg Q4H PRN Administration Systolic BP > 180 Lisinopril 5 mg 12/22/18 09:00 12/25/18 08:49 Zestril PO 5 mg DAILY TAMMY Administration Ondansetron HCl 4 mg 12/20/18 14:59 12/24/18 10:02 Zofran IVP 4 mg Q6H PRN Administration Nausea/Vomiting Pantoprazole Sodium 40 mg 12/22/18 21:00 12/25/18 08:50 Protonix IVP 40 mg Q12HR TAMMY Administration Paroxetine HCl 30 mg 12/22/18 09:00 12/25/18 08:48 Paxil PO 30 mg DAILY TAMMY Administration Promethazine HCl 12.5 mg 12/21/18 08:42 12/21/18 21:06 Phenergan IVPB 12.5 mg Q6H PRN Administration Nausea Saccharomyces Boulardii 250 mg 12/24/18 09:00 12/25/18 08:49 Florastor PO 250 mg DAILY TAMMY Administration Sodium Bicarbonate 650 mg 12/22/18 09:00 12/25/18 14:21 Bicarbonate, Sodium PO 650 mg TID TAMMY Administration Sodium Chloride 10 ml 12/22/18 16:29 12/25/18 08:50 Normal Saline Pf FS 10 ml PRN PRN Administration RECONSTITUTION Vancomycin HCl 125 mg 12/22/18 08:00 12/25/18 14:21 First Vancomycin PO 125 mg 0200,0800,1400,2000 TAMMY Administration - Exam NAD Neck: supple, symmetric, no JVD, no Thyromegaly, no lymphadenopathy, no carotid bruit Heart: RRR, no murmur, no gallops, no rubs, normal peripheral pulses Respiratory: CTAB, no wheezes, no rales, no ronchi, normal chest expansion, no tachypnea, normal percussion Gastrointestinal: soft, non-tender, non-distended, normal bowel sounds, no palpable masses, no hepatomegaly, no splenomegaly, no bruit Extremities: no cyanosis, no clubbing, no edema Skin: normal turgor Neurological: no focal deficits Musculoskeletal: normal tone Psychiatric: normal affect, normal behavior, A&O x 3 Hosp A/P (1) Duodenal ulcer disease Status: Acute (2) Upper GI bleed Code(s): K92.2 - GASTROINTESTINAL HEMORRHAGE, UNSPECIFIED Status: Acute (3) Clostridioides difficile infection Code(s): A49.8 - OTHER BACTERIAL INFECTIONS OF UNSPECIFIED SITE Status: Acute (4) CAD (coronary artery disease) Code(s): I25.10 - ATHSCL HEART DISEASE OF [place] CORONARY ARTERY W/O ANG PCTRS Status: Chronic Qualifiers: Coronary Disease-Associated Artery/Lesion type: bypass graft [place] vs. transplanted heart: [place] heart Associated angina: without angina Qualified Code(s): I25.810 - Atherosclerosis of coronary artery bypass graft(s) without angina pectoris (5) DM type 2 (diabetes mellitus, type 2) Status: Chronic Qualifiers: Diabetes mellitus [facility] insulin use: without [facility] use Diabetes mellitus complication status: with kidney complications Diabetes mellitus complication detail: with chronic kidney disease Chronic kidney disease stage : stage 4 (severe) Qualified Code(s): E11.22 - Type 2 diabetes mellitus with diabetic chronic kidney disease; N18.4 - Chronic kidney disease, stage 4 (severe ) (6) HLD (hyperlipidemia) Code(s): E78.5 - HYPERLIPIDEMIA, UNSPECIFIED Status: Chronic (7) HTN (hypertension) Code(s): I10 - ESSENTIAL (PRIMARY) HYPERTENSION Status: Chronic Qualifiers: Hypertension type: essential hypertension Qualified Code(s): I10 - Essential (primary) hypertension (8) Nausea Code(s): R11.0 - NAUSEA Status: Acute (9) CKD (chronic kidney disease), stage IV Code(s): N18.4 - CHRONIC KIDNEY DISEASE, STAGE 4 (SEVERE) Status: Acute (10) Acute blood loss anemia Code(s): D62 - ACUTE POSTHEMORRHAGIC ANEMIA Status: Acute (11) Leukocytosis Code(s): D72.829 - ELEVATED WHITE BLOOD CELL COUNT, UNSPECIFIED Status: Acute - Plan Move out of unit. Increase po intake. PT. Monitor hgb.
--- NOTE | 2018-12-25 16:37 | PRG ---
DATE OF SERVICE: 12/25/2018 SUBJECTIVE: Ms. Webb has no acute complaints today. Her last bowel movement was yesterday. She has had no nausea, vomiting, or abdominal pain. OBJECTIVE: VITAL SIGNS: Temperature 97.9, pulse 68, blood pressure 139/60. GENERAL: She is alert and oriented x3. LUNGS: Clear to auscultation bilaterally. HEART: Regular rate and rhythm without murmur. ABDOMEN: Soft, nontender, nondistended. Bowel sounds are present. EXTREMITIES: No lower extremity edema. LABORATORY DATA: Hemoglobin is stable at 8.6. Creatinine 1.77. IMPRESSION: 1. Ascites. She did have spontaneous bacterial peritonitis, which was recently treated and followup paracentesis this hospital stay shows no evidence of spontaneous bacterial peritonitis. At this point, the fluid studies do not fit neatly into diagnostic algorithm and that the serum ascites, albumin gradient is 1.0. The total protein in the fluid is 4.0. Clinically, I think this is a congestive hepatopathy with resulting ascites. Treatment then is just low-salt diet and optimization of cardiac output and diuretics as necessary with spironolactone and furosemide. For now, she has been having no significant symptoms associated with the ascites. 2. Gastrointestinal bleed secondary to duodenal ulcer status post cautery. Her hemoglobin remained stable. She should maintain proton pump inhibitor. 3. Recent Clostridium difficile colitis, which was really just a PCR positive and toxin negative. She might have just had colonization to begin with. Either way she should finish out the 10-day course of oral vancomycin and stool is clear on this hospitalization. C. diff antigen and toxin are negative. RECOMMENDATIONS: 1. Anticipate discharge to the [facility]. She is stable from a GI perspective and should continue her proton pump inhibitor. 2. Low-salt diet. For now, she can remain off diuretics from a GI standpoint as long as the ascites remains with minimal symptoms. 3. I will sign off for now. Please call if GI can be of assistance. Job ID: [id number]
[2018-12-26] MEDS: Acetaminophen 500 MG TAB PO PRN (00:09)
[2018-12-26] MEDS: Vancomycin HCl 25 MG/ML Oral PO SCH ×4 (01:52→20:49)
[2018-12-26] MEDS: Atorvastatin Calcium 40 MG TAB PO SCH (08:51)
[2018-12-26] MEDS: Carvedilol 6.25 MG TAB PO SCH ×2 (08:52→20:49)
[2018-12-26] MEDS: Gabapentin 300 MG CAP PO SCH ×2 (08:52→20:49)
[2018-12-26] MEDS: PARoxetine 20 MG TAB PO SCH (08:53)
[2018-12-26] MEDS: Lisinopril 5 MG TAB PO SCH (08:53)
[2018-12-26] MEDS: Saccharomyces boulardii 250 MG CAP PO SCH (08:54)
[2018-12-26] MEDS: HumaLOG 300 UNITS/3 ML VIAL SC PRN ×3 (08:54→20:52)
[2018-12-26] MEDS: Sodium Bicarbonate Tab 325 MG TAB PO SCH ×3 (08:54→20:48)
[2018-12-26] MEDS: Pantoprazole 40 MG VIAL IVP SCH (08:59)
--- NOTE | 2018-12-26 16:32 | PDOC.HOSPP ---
- Objective Vital Signs & Weight: Vital Signs (12 hours) Temp Pulse Pulse Resp BP BP Pulse Ox 12/26/18 15:03 98.5 F 75 17 135/63 94 L 12/26/18 11:32 98.7 F 71 17 132/62 94 L 12/26/18 11:21 71 132/67 12/26/18 07:12 98.1 F 72 17 134/62 95 Weight Admit Weight 207 lb 7.28 oz Weight 234 lb 9.149 oz Most Recent Monitor Data Heart Rate from ECG 79 NIBP 122/53 NIBP BP-Mean 76 Respiration from ECG 22 SpO2 94 I&O: 12/25/18 12/26/18 12/27/18 06:59 06:59 06:59 Intake Total 2670 1020 Output Total 895 1535 Balance 1775 -750 Result Diagrams: 12/24/18 03:27 12/24/18 03:27 Additional Labs: Accuchecks 12/26/18 12/26/18 12/25/18 10:43 05:20 20:15 POC Glucose 256 H 200 H 202 H 12/25/18 16:59 POC Glucose 227 H ROS - Review of Systems All systems: All other ROS were reviewed and found negative. - Medication Medications: Active Medications Generic Name Dose Route Start Last Admin Trade Name Freq PRN Reason Stop Dose Admin Acetaminophen 1,000 mg 12/20/18 14:59 12/26/18 00:09 Tylenol PO 1,000 mg Q6H PRN Administration Mild Pain (1-3) Atorvastatin Calcium 40 mg 12/22/18 09:00 12/26/18 08:51 Lipitor PO 40 mg DAILY TAMMY Administration Carvedilol 6.25 mg 12/22/18 09:00 12/26/18 08:52 Coreg PO 6.25 mg BID TAMMY Administration Gabapentin 300 mg 12/22/18 09:00 12/26/18 08:52 Neurontin PO 300 mg BID TAMMY Administration Hydralazine HCl 10 mg 12/20/18 14:59 12/22/18 15:06 Apresoline SLOW IVP 10 mg Q4H PRN Administration SBP > 180 and HR < 70 Insulin Human Lispro 0 units 12/20/18 14:59 12/26/18 11:35 Humalog SC 4 unit .MILD SLIDING SCALE PRN Administration Mild Correctional Scale Insulin Human Lispro 0 units 12/20/18 14:59 12/25/18 20:45 Humalog SC 2 unit .BEDTIME SLIDING SC PRN Administration Bedtime Correctional Scale Labetalol HCl 10 mg 12/20/18 23:18 12/23/18 16:36 Normodyne SLOW IVP 10 mg Q4H PRN Administration Systolic BP > 180 Lisinopril 5 mg 12/22/18 09:00 12/26/18 08:53 Zestril PO 5 mg DAILY TAMMY Administration Ondansetron HCl 4 mg 12/20/18 14:59 12/24/18 10:02 Zofran IVP 4 mg Q6H PRN Administration Nausea/Vomiting Paroxetine HCl 30 mg 12/22/18 09:00 12/26/18 08:53 Paxil PO 30 mg DAILY TAMMY Administration Promethazine HCl 12.5 mg 12/21/18 08:42 12/21/18 21:06 Phenergan IVPB 12.5 mg Q6H PRN Administration Nausea Saccharomyces Boulardii 250 mg 12/24/18 09:00 12/26/18 08:54 Florastor PO 250 mg DAILY TAMMY Administration Sodium Bicarbonate 650 mg 12/22/18 09:00 12/26/18 15:01 Bicarbonate, Sodium PO 650 mg TID TAMMY Administration Sodium Chloride 10 ml 12/22/18 16:29 12/25/18 08:50 Normal Saline Pf FS 10 ml PRN PRN Administration RECONSTITUTION Vancomycin HCl 125 mg 12/22/18 08:00 12/26/18 15:01 First Vancomycin PO 125 mg 0200,0800,1400,2000 TAMMY Administration
--- NOTE | 2018-12-26 16:43 | PDOC.HOSPP ---
- Subjective Subjective: was feeling better this morning but started to have diarrhea no abd pain, nausea or vomiting is tolerating oral diet - Objective Vital Signs & Weight: Vital Signs (12 hours) Temp Pulse Pulse Resp BP BP Pulse Ox 12/26/18 15:03 98.5 F 75 17 135/63 94 L 12/26/18 11:32 98.7 F 71 17 132/62 94 L 12/26/18 11:21 71 132/67 12/26/18 07:12 98.1 F 72 17 134/62 95 Weight Admit Weight 207 lb 7.28 oz Weight 234 lb 9.149 oz Most Recent Monitor Data Heart Rate from ECG 79 NIBP 122/53 NIBP BP-Mean 76 Respiration from ECG 22 SpO2 94 I&O: 12/25/18 12/26/18 12/27/18 06:59 06:59 06:59 Intake Total 2670 1020 Output Total 895 1535 Balance 1775 -515 Result Diagrams: 12/24/18 03:27 12/24/18 03:27 Additional Labs: Accuchecks 12/26/18 12/26/18 12/25/18 10:43 05:20 20:15 POC Glucose 256 H 200 H 202 H 12/25/18 16:59 POC Glucose 227 H ROS - Review of Systems All systems: All other ROS were reviewed and found negative. - Medication Medications: Active Medications Generic Name Dose Route Start Last Admin Trade Name Freq PRN Reason Stop Dose Admin Acetaminophen 1,000 mg 12/20/18 14:59 12/26/18 00:09 Tylenol PO 1,000 mg Q6H PRN Administration Mild Pain (1-3) Atorvastatin Calcium 40 mg 12/22/18 09:00 12/26/18 08:51 Lipitor PO 40 mg DAILY TAMMY Administration Carvedilol 6.25 mg 12/22/18 09:00 12/26/18 08:52 Coreg PO 6.25 mg BID TAMMY Administration Gabapentin 300 mg 12/22/18 09:00 12/26/18 08:52 Neurontin PO 300 mg BID TAMMY Administration Hydralazine HCl 10 mg 12/20/18 14:59 12/22/18 15:06 Apresoline SLOW IVP 10 mg Q4H PRN Administration SBP > 180 and HR < 70 Insulin Human Lispro 0 units 12/20/18 14:59 12/26/18 11:35 Humalog SC 4 unit .MILD SLIDING SCALE PRN Administration Mild Correctional Scale Insulin Human Lispro 0 units 12/20/18 14:59 12/25/18 20:45 Humalog SC 2 unit .BEDTIME SLIDING SC PRN Administration Bedtime Correctional Scale Labetalol HCl 10 mg 12/20/18 23:18 12/23/18 16:36 Normodyne SLOW IVP 10 mg Q4H PRN Administration Systolic BP > 180 Lisinopril 5 mg 12/22/18 09:00 12/26/18 08:53 Zestril PO 5 mg DAILY TAMMY Administration Ondansetron HCl 4 mg 12/20/18 14:59 12/24/18 10:02 Zofran IVP 4 mg Q6H PRN Administration Nausea/Vomiting Paroxetine HCl 30 mg 12/22/18 09:00 12/26/18 08:53 Paxil PO 30 mg DAILY TAMMY Administration Promethazine HCl 12.5 mg 12/21/18 08:42 12/21/18 21:06 Phenergan IVPB 12.5 mg Q6H PRN Administration Nausea Saccharomyces Boulardii 250 mg 12/24/18 09:00 12/26/18 08:54 Florastor PO 250 mg DAILY TAMMY Administration Sodium Bicarbonate 650 mg 12/22/18 09:00 12/26/18 15:01 Bicarbonate, Sodium PO 650 mg TID TAMMY Administration Sodium Chloride 10 ml 12/22/18 16:29 12/25/18 08:50 Normal Saline Pf FS 10 ml PRN PRN Administration RECONSTITUTION Vancomycin HCl 125 mg 12/22/18 08:00 12/26/18 15:01 First Vancomycin PO 125 mg 0200,0800,1400,2000 TAMMY Administration - Exam NAD, awake alert Eye: PERRL, anicteric sclera ENT: normocephalic atraumatic, moist mucosa Neck: supple, no JVD Heart: RRR, no murmur Respiratory: no wheezes, no ronchi Gastrointestinal: soft, non-tender, normal bowel sounds Extremities: no cyanosis, no clubbing Neurological: no focal deficits (chronic bells palsy) Psychiatric: normal affect, A&O x 3 Hosp A/P (1) Acute blood loss anemia Code(s): D62 - ACUTE POSTHEMORRHAGIC ANEMIA Status: Resolved Plan: stable (2) Clostridioides difficile infection Code(s): A49.8 - OTHER BACTERIAL INFECTIONS OF UNSPECIFIED SITE Status: Acute (3) Upper GI bleed Code(s): K92.2 - GASTROINTESTINAL HEMORRHAGE, UNSPECIFIED Status: Resolved (4) NEFTALI (acute kidney injury) Code(s): N17.9 - ACUTE KIDNEY FAILURE, UNSPECIFIED Status: Acute (5) Acute on chronic systolic (congestive) heart failure Code(s): I50.23 - ACUTE ON CHRONIC SYSTOLIC (CONGESTIVE) HEART FAILURE Status : Chronic (6) Hypoalbuminemia Code(s): E88.09 - OTH DISORDERS OF PLASMA-PROTEIN METABOLISM, NEC Status: Chronic (7) Metabolic acidosis Code(s): E87.2 - ACIDOSIS Status: Acute (8) Anxiety and depression Code(s): F41.9 - ANXIETY DISORDER, UNSPECIFIED; F32.9 - MAJOR DEPRESSIVE DISORDER, SINGLE EPISODE, UNSPECIFIED Status: Chronic (9) CAD (coronary artery disease) Code(s): I25.10 - ATHSCL HEART DISEASE OF [place] CORONARY ARTERY W/O ANG PCTRS Status: Chronic Qualifiers: Coronary Disease-Associated Artery/Lesion type: bypass graft [place] vs. transplanted heart: [place] heart Associated angina: without angina Qualified Code(s): I25.810 - Atherosclerosis of coronary artery bypass graft(s) without angina pectoris (10) CKD (chronic kidney disease) stage 4, GFR 15-29 ml/min Code(s): N18.4 - CHRONIC KIDNEY DISEASE, STAGE 4 (SEVERE) Status: Chronic (11) DM type 2 (diabetes mellitus, type 2) Status: Chronic Qualifiers: Diabetes mellitus jail insulin use: without terminal computer operator use Diabetes mellitus complication status: with kidney complications Diabetes mellitus complication detail: with chronic kidney disease Chronic kidney disease stage : stage 4 (severe) Qualified Code(s): E11.22 - Type 2 diabetes mellitus with diabetic chronic kidney disease; N18.4 - Chronic kidney disease, stage 4 (severe ) (12) HLD (hyperlipidemia) Code(s): E78.5 - HYPERLIPIDEMIA, UNSPECIFIED Status: Chronic (13) HTN (hypertension) Code(s): I10 - ESSENTIAL (PRIMARY) HYPERTENSION Status: Chronic Qualifiers: Hypertension type: essential hypertension Qualified Code(s): I10 - Essential (primary) hypertension - Plan add xifaxan to vanc po dc plan when diarrhea freq is less than 4/day continue protonix bid, coreg, lipitor, glipizide, neurontin bmp in am if creatinine is going up will dc lisinopril add lantus 10 u HS PT to mobilize as tolerated
[2018-12-26] MEDS: Rifaximin 550 MG TAB PO SCH (20:49)
[2018-12-26] MEDS ORDERED: Insulin Glargine 10 UNITS in Pre-Filled Syringe 1 EACH SC SCH (21:00)
[2018-12-27] MEDS: Vancomycin HCl 25 MG/ML Oral PO SCH ×3 (02:21→14:50)
[2018-12-27] MEDS: HumaLOG 300 UNITS/3 ML VIAL SC PRN (05:50)
[2018-12-27 08:23] VITALS: BP 148/75; TEMP 98.4
[2018-12-27] MEDS: Saccharomyces boulardii 250 MG CAP PO SCH (08:29)
[2018-12-27] MEDS: PARoxetine 20 MG TAB PO SCH (08:29)
[2018-12-27] MEDS: Sodium Bicarbonate Tab 325 MG TAB PO SCH ×2 (08:29→14:51)
[2018-12-27] MEDS: Carvedilol 6.25 MG TAB PO SCH (08:30)
[2018-12-27] MEDS: Rifaximin 550 MG TAB PO SCH (08:30)
[2018-12-27] MEDS: Atorvastatin Calcium 40 MG TAB PO SCH (08:30)
[2018-12-27] MEDS: Gabapentin 300 MG CAP PO SCH (08:30)
[2018-12-27] MEDS: Lisinopril 5 MG TAB PO SCH (08:30)
[2018-12-27 08:43] LABS: #Eosinphils 0.4 thou/uL (0.0-0.7); #Lymphocytes 1.6 thou/uL (1.20-3.40); #Monocytes 1.2 thou/uL (0.11-0.59); #Neutrophils 9.7 thou/uL (1.40-6.50); %Basophils 0.1 % (0.0-1.0); %Eosinophils 3.5 % (0.0-10.0); %Lymphocytes 12.3 % (21.0-51.0); %Neutrophils 75.2 % (42.0-75.0); Hemoglobin 8.3 g/dL (12.0-16.0); Mean Corpuscular HGB CONC 32.3 g/dL (32.0-36.0); Mean Corpuscular Hemoglobin 29.7 pg (27.0-31.0); Platelet Count 352 thou/uL (130-400); RBC Distribution Width 16.1 % (11.5-14.5); Red Blood Cell (RBC) Count 2.79 mill/uL (4.20-5.40); White Blood Cell (WBC) Count 12.9 thou/uL (4.8-10.8)
[2018-12-27 09:08] LABS: ALT (SGPT) 27 U/L (8-55); AST (SGOT) 29 U/L (5-34); Albumin 2.5 g/dL (3.4-4.8); Alkaline Phosphatase 434 U/L (40-150); Anion Gap 9 mmol/L (10-20); BUN (Urea Nitrogen) 36 mg/dL (9.8-20.1); Bilirubin, Total 0.5 mg/dL (0.2-1.2); Calc. Creatinine Clearance 48 mL/min (70-130); Calcium 7.7 mg/dL (7.8-10.44); Carbon Dioxide 23 mmol/L (23-31); Chloride 109 mmol/L (98-107); Estimated GFR-MDRD 28; Glucose 138 mg/dL (80-115); Potassium 4.5 mmol/L (3.5-5.1); Protein, Total 5.5 g/dL (6.0-8.3); Sodium 136 mmol/L (136-145)
--- NOTE | 2018-12-29 16:03 | DIS ---
DATE OF ADMISSION: 12/20/2018 DATE OF DISCHARGE: 12/27/2018 DISCHARGE DISPOSITION: To [facility]. PRIMARY DISCHARGE DIAGNOSES: Acute blood loss anemia; history of Clostridium difficile colitis, on vancomycin for the next 4 days; acute kidney injury; acute on chronic congestive heart failure exacerbation with systolic dysfunction, grade C; hypoalbuminemia; metabolic acidosis due to acute kidney injury; anxiety and depression; coronary artery disease; diabetes mellitus, type 2; dyslipidemia; and hypertension. PROCEDURES DONE DURING HOSPITALIZATION: The patient has had upper endoscopy done on 12/20/[address] Heath. This showed duodenal bulb ulcers, 3 to 4. She also had mild gastritis with no active bleeding. Her duodenal bulb ulcers had visible vessel and it was injected with epinephrine and cauterized. Cytology of paracentesis fluid is benign. There were reactive mesothelial cells, macrophages, and lymphocytes. No malignant cells were seen. Intervention Radiology performed paracentesis on the December 23 with a total of 4 L being removed. Stool for C diff done on the was negative. Paracentesis fluid culture showed no growth in 5 days. H and H 8.3 and 25, platelet count 352 on the day of discharge. MCV is 92. BUN 36, creatinine 1.7 on the day of discharge. Albumin is 2.5. DISCHARGE MEDICATIONS: 1. Atorvastatin 40 mg p.o. daily. 2. Gabapentin 300 mg p.o. twice daily. 3. Paxil 30 mg p.o. daily. 4. Carvedilol 6.25 mg twice daily. 5. Lasix 40 mg daily. 6. Glipizide extended release 2.5 mg daily. 7. Lantus 10 units subcu q.h.s. 8. Lisinopril 5 mg p.o. daily. 9. Protonix 40 mg twice daily. 10. Florastor 250 mg p.o. daily. 11. Sodium bicarbonate 650 mg p.o. three times daily. 12. Vancomycin 125 mg p.o. 4 times daily for another 4 days. ALLERGIES: NO KNOWN DRUG ALLERGIES. DISCHARGE PLAN: The patient to follow up with her primary care physician in 1 week. BRIEF COURSE DURING HOSPITALIZATION: The patient initially got admitted on the after she was discharged on the to [facility]. She got admitted this time for blood in her stool. She had acute blood loss anemia with hemoglobin dropping from 9.2 to 7.6. She was evaluated by Dr. Heath. Upper endoscopy done showed duodenal ulcers with visible vessel, which was cauterized. Serial H's and H's were done, which have remained fairly stable. Prior to discharge, she is ambulating minimally and is participating with physical therapy. Due to deconditioning, she is being discharged to [facility]. The patient did not want to go back to swing bed. A total of 35 minutes was spent on discharge plan. Please note, I have seen and examined the patient on the day of discharge. I have also given updates to Dr. Tran, her primary care physician, at [facility]. Job ID: [id number]
== END 2018-12-27 15:57 | DRG 378 ==
LOC: 2NO 14:08 → CCU 17:31 → 2NO 12-25 09:54 → T4-B 12-26 18:10
PROVIDERS: ADMIT Family Medicine; ATTEND Family Medicine
PROC: 0DC98ZZ Extirpation of Matter from Duodenum, Via Natural or Artificial Opening Endoscopic (ICD-10-PCS; principal; 2018-12-20)
PROC: 0W3P8ZZ Control Bleeding in Gastrointestinal Tract, Via Natural or Artificial Opening Endoscopic (ICD-10-PCS; 2018-12-20)
PROC: 30233N1 Transfusion of Nonautologous Red Blood Cells into Peripheral Vein, Percutaneous Approach (ICD-10-PCS; 2018-12-20)
PROC: 0W9G3ZZ Drainage of Peritoneal Cavity, Percutaneous Approach (ICD-10-PCS; 2018-12-23)
DX: K26.4 Chronic or unspecified duodenal ulcer with hemorrhage (principal); I13.0 Hypertensive heart and chronic kidney disease with heart failure and stage 1 through stage 4 chronic kidney disease, or unspecified chronic kidney disease; N18.4 Chronic kidney disease, stage 4 (severe); D62 Acute posthemorrhagic anemia; A04.72 Enterocolitis due to Clostridium difficile, not specified as recurrent; R18.8 Other ascites; G93.40 Encephalopathy, unspecified; I42.9 Cardiomyopathy, unspecified; N17.9 Acute kidney failure, unspecified; I50.22 Chronic systolic (congestive) heart failure; E87.2 Acidosis; E11.22 Type 2 diabetes mellitus with diabetic chronic kidney disease; I25.10 Atherosclerotic heart disease of native coronary artery without angina pectoris; K29.70 Gastritis, unspecified, without bleeding; I95.9 Hypotension, unspecified; D72.829 Elevated white blood cell count, unspecified; K76.1 Chronic passive congestion of liver; E88.09 Other disorders of plasma-protein metabolism, not elsewhere classified; F41.9 Anxiety disorder, unspecified; F32.9 Major depressive disorder, single episode, unspecified; R33.9 Retention of urine, unspecified; Z90.710 Acquired absence of both cervix and uterus; Z95.1 Presence of aortocoronary bypass graft; Z89.431 Acquired absence of right foot; Z79.82 Long term (current) use of aspirin
CPT/HCPCS: 36415; 36416; 36430; 49083; 71045; 74018; 80048; 80053; 80076; 82042; 82140; 84157; 85007; 85025; 85027; 85060; 86850; 86900; 86901; 87070; 87205; 87324; 87449; 88112; 88305; 89051; C9113; J0171; J0360; J1815; J2001; J2405; J2550; J2704; J3010; J3490; P9016; Q0162